=== PATIENT | male | born 1940 | race Caucasian/White ===

== ENCOUNTER → 2019-12-13 10:25 | Outpatient (BNVA) | payer MEDICARE, OTHER, SELFPAY | PROVIDERS: PCP Internal Medicine; Visit Provider Internal Medicine | DX: R94.39 Abnormal result of other cardiovascular function study (principal); R07.2 Precordial pain; I10 Essential (primary) hypertension; E11.9 Type 2 diabetes mellitus without complications; E78.5 Hyperlipidemia, unspecified; I73.9 Peripheral vascular disease, unspecified | CPT/HCPCS: 99215 ==

== ENCOUNTER 2019-12-21 13:41 | Outpatient (REF) | payer MEDICARE, OTHER, SELFPAY ==
[2019-12-21 14:34] LABS: MANUAL DIFF FLAG NO
[2019-12-21 14:35] LABS: Basophils Percent Auto 0.7 % (0-2); Eosinophils Absolute Auto 0.1 X10*3/uL (0.0-0.4); Eosinophils Percent Auto 0.9 % (0-4); Hematocrit 42.1 % (42-52); Hemoglobin 13.4 g/dl (14.0-18.0); Imm Gran Abs Auto 0.01 X10*3/uL (0.00-0.03); Imm Gran Pct Auto 0.2 % (0.0-0.4); Mean Corpuscular HGB Conc 31.8 g/dl (31.0-36.0); Mean Corpuscular Hemoglobin 29.5 pg (27.0-33.0); Mean Corpuscular Volume 92.7 fL (80-98); Mean Platelet Volume 11.8 fL (9.4-12.4); Monocytes Absolute Auto 0.4 X10*3/uL (0.1-1.2); Monocytes Percent Auto 6.6 % (2-11); Neutrophils Absolute Auto 3.3 X10*3/uL (2.0-8.3); Neutrophils Percent Auto 56.6 % (45-73); Platelet Count 230 X10*3/uL (160-400); Red Blood Count 4.54 X10*6/uL (4.60-5.80); Red Cell Distribution Width 13.9 % (11.0-16.0); White Blood Count 5.7 X10*3/uL (4.8-10.8)
[2019-12-21 15:29] LABS: Anion Gap 14 (12-20); Blood Urea Nitrogen 16 mg/dL (9-16); Calcium 9.1 mg/dL (8.4-10.2); Carbon Dioxide 29 mmol/L (22-29); Chloride 104 mmol/L (96-108); Estimated Glomerular Filt Rate > 60; Glucose Random 88 mg/dL (60-115); Potassium 4.1 mmol/l (3.3-5.1); Sodium 143 mmol/L (135-145)
== END 2019-12-21 13:42 | disposition home or self-care (01) ==
LOC: HO.LAB 13:41
PROVIDERS: PCP Internal Medicine; Visit Provider Internal Medicine
DX: R94.39 Abnormal result of other cardiovascular function study (principal)
CPT/HCPCS: 36415; 80048; 85025

== ENCOUNTER 2019-12-24 14:20 | Outpatient (REF) | payer MEDICARE, MEDICAID, SELFPAY ==
[2019-12-24 15:36] LABS: MANUAL DIFF FLAG NO
[2019-12-24 15:39] LABS: Basophils Percent Auto 0.2 % (0-2); Eosinophils Percent Auto 0.1 % (0-4); Hematocrit 40.5 % (42-52); Hemoglobin 12.6 g/dl (14.0-18.0); Imm Gran Abs Auto 0.13 X10*3/uL (0.00-0.03); Imm Gran Pct Auto 0.7 % (0.0-0.4); Lymphocytes Absolute Auto 1.9 X10*3/uL (1.2-4.9); Lymphocytes Percent Auto 10.6 % (20-40); Mean Corpuscular HGB Conc 31.1 g/dl (31.0-36.0); Mean Corpuscular Hemoglobin 29.1 pg (27.0-33.0); Mean Corpuscular Volume 93.5 fL (80-98); Mean Platelet Volume 12.1 fL (9.4-12.4); Monocytes Absolute Auto 1.3 X10*3/uL (0.1-1.2); Monocytes Percent Auto 7.4 % (2-11); Neutrophils Absolute Auto 14.6 X10*3/uL (2.0-8.3); Platelet Count 222 X10*3/uL (160-400); Red Blood Count 4.33 X10*6/uL (4.60-5.80); Red Cell Distribution Width 14.1 % (11.0-16.0); White Blood Count 18.1 X10*3/uL (4.8-10.8)
[2019-12-24 15:43] LABS: Glucose Urine UA NEG (NEG); Leukocyte Esterase Urine 3+ (NEG); Nitrite Urine NEG (NEG); Urine Blood TRACE (NEG); Urine Ketones NEG (NEG); Urine Protein TRACE MG/DL (NEG-TRACE)
[2019-12-24 15:46] LABS: Appearance Urine CLOUDY; Color Urine YELLOW
[2019-12-24 15:56] LABS: Bacteria Urine 4+ /LPF; Hyaline Casts Urine 0-2 /LPF; Squamous Epithelial Cell Urine 3+ /LPF; WBC Urine 50-75 /HPF (0-4)
[2019-12-24 15:59] LABS: Anion Gap 13 (12-20); Blood Urea Nitrogen 20 mg/dL (9-16); Calcium 8.7 mg/dL (8.4-10.2); Carbon Dioxide 27 mmol/L (22-29); Chloride 105 mmol/L (96-108); Estimated Glomerular Filt Rate > 60; Glucose Random 83 mg/dL (60-115); Potassium 3.5 mmol/l (3.3-5.1); Sodium 141 mmol/L (135-145)
== END 2019-12-24 14:21 | disposition home or self-care (01) ==
LOC: HO.LAB 14:20
PROVIDERS: Visit Provider Psychiatry & Neurology Neurology
DX: N39.0 Urinary tract infection, site not specified (principal)
CPT/HCPCS: 36415; 80048; 81001; 85025; 87086; 87088; 87186

== ENCOUNTER 2020-01-08 08:05 | Outpatient (REF) | payer MEDICARE, MEDICAID, SELFPAY ==
--- NOTE | 2020-01-08 08:15 | MR_ITS ---
MRI BRAIN WITHOUT IV CONTRAST. CLINICAL INFORMATION: Transient alteration of awareness. COMPARISON: Head CT October 05, 2019. TECHNIQUE: Multiplanar multisequence MR imaging of the brain is obtained without IV contrast. FINDINGS: There is no hydrocephalus, extra-axial surface collection, or herniation. There is global cerebral volume loss and there is moderate chronic microangiopathy. The major flow voids at the skull base are preserved. There is no acute infarct on diffusion-weighted imaging. There is no intracranial hemorrhage on the gradient recalled echo acquisition. Small focus of chronic hemosiderin staining within the lateral right cerebellum. Mineralization throughout the basal ganglia bilaterally. The midline structures are normal. The cerebellar tonsils are normally positioned. The craniocervical junction is normal. Osseous marrow signal intensity is homogenous. The visualized soft tissues are unremarkable. MR/MR head/brain wo con IMPRESSION: - No acute intracranial findings - There is global cerebral volume loss and there is moderate chronic microangiopathy.
== END 2020-01-08 08:06 | disposition home or self-care (01) ==
LOC: HO.MRI 08:05
PROVIDERS: PCP Internal Medicine; Visit Provider Internal Medicine
DX: R40.4 Transient alteration of awareness (principal); R07.2 Precordial pain; E11.8 Type 2 diabetes mellitus with unspecified complications; E78.5 Hyperlipidemia, unspecified; D72.829 Elevated white blood cell count, unspecified; I73.9 Peripheral vascular disease, unspecified; Z87.891 Personal history of nicotine dependence; Z88.0 Allergy status to penicillin; Z79.4 Long term (current) use of insulin; Z79.899 Other long term (current) drug therapy; Z98.890 Other specified postprocedural states
CPT/HCPCS: 70551; 99214

== ENCOUNTER 2020-02-01 08:30 | Outpatient (REF) | payer MEDICARE, OTHER, SELFPAY ==
--- NOTE | 2020-02-01 08:55 | CT_ITS ---
EXAMINATION: CT CHEST WITHOUT CONTRAST CLINICAL INFORMATION: Pulmonary nodule, follow-up. COMPARISON: 07/15/[address] TECHNIQUE: Multidetector volumetric CT imaging of the chest was done. Axial MIP volume rendering provided. Sagittal and coronal reformatted images were obtained. This CT examination was performed using dose optimization techniques as appropriate, variously including the following: *Automated exposure control *Adjustment of mA and/or kV according to patient size (this includes techniques or standardized protocols for targeted exams where dose is matched to indication/reason for exam; i.e. extremities or head) *Use of iterative reconstruction technique DLP: 185 mGy-cm FINDINGS: LUNGS/PLEURA/AIRWAYS: A 0.6 cm nodule is seen in the left upper lobe laterally (image 343, series 4) without significant change. A 0.4 cm nodule seen inferiorly in the right middle lobe (image 457, series 4). A nodule anteriorly in the lingula measures 0.4 cm (image 450, series 4). A 0.6 cm nodule seen posteromedially in the left lower lobe (image 419, series 4). Mild upper lobe predominant paraseptal emphysema is seen extending to the apices. Mild biapical pleural thickening/scarring is again seen without significant change. There are no pleural effusions. The airways are patent. MEDIASTINUM: The visualized thyroid gland is unremarkable. The thoracic aorta measures up to 4.2 cm in AP dimension (image 32, series 3). Mild atherosclerosis is seen in the aortic arch. The pulmonary arteries are unremarkable. No coronary artery calcifications. No pericardial effusion. AXILLA: No lymphadenopathy. UPPER ABDOMEN: Partial visualization of a fluid attenuation cyst in the interpolar left kidney (image 69, series 3). OSSEOUS STRUCTURES: Mild to moderate degenerative changes are seen in the thoracic spine most pronounced in the mid thoracic spine. SOFT TISSUES: Mild asymmetric retroareolar tissue seen in the right breast. Small nodules seen laterally in the bilateral breasts are unchanged. CT/CT chest wo con IMPRESSION: 1. Pulmonary nodules measuring up to 0.6 cm as detailed above have not significantly changed favoring benignity. No significant new or suspicious pulmonary nodules seen. Following Fleischner Society guidelines, CT follow-up is recommended in 18-24 months. 2. Aneurysmal dilatation of the thoracic aorta measuring up to 4.2 cm without significant change.
== END 2020-02-01 08:31 | disposition home or self-care (01) ==
LOC: HO.CT 08:30
PROVIDERS: PCP Internal Medicine; Visit Provider Internal Medicine
DX: R91.1 Solitary pulmonary nodule (principal)
CPT/HCPCS: 71250

== ENCOUNTER 2020-02-12 12:27 | Outpatient (REF) | payer MEDICARE, MEDICAID, SELFPAY | END 2020-02-12 12:28 | disposition home or self-care (01) | LOC: HO.LAB 12:27 | PROVIDERS: Visit Provider Internal Medicine | DX: Z20.828 Contact with and (suspected) exposure to other viral communicable diseases (principal) | CPT/HCPCS: U0003 ==

== ENCOUNTER 2020-02-19 09:53 | Outpatient (REF) | payer MEDICARE, OTHER, SELFPAY ==
[2020-02-19 12:03] LABS: MANUAL DIFF FLAG NO
[2020-02-19 12:10] LABS: Basophils Percent Auto 0.6 % (0-2); Eosinophils Percent Auto 0.6 % (0-4); Hematocrit 39.2 % (42-52); Hemoglobin 12.7 g/dl (14.0-18.0); Imm Gran Abs Auto 0.01 X10*3/uL (0.00-0.03); Imm Gran Pct Auto 0.1 % (0.0-0.4); Lymphocytes Absolute Auto 2.1 X10*3/uL (1.2-4.9); Lymphocytes Percent Auto 30.4 % (20-40); Mean Corpuscular HGB Conc 32.4 g/dl (31.0-36.0); Mean Corpuscular Hemoglobin 30.1 pg (27.0-33.0); Mean Corpuscular Volume 92.9 fL (80-98); Mean Platelet Volume 12.5 fL (9.4-12.4); Monocytes Absolute Auto 0.5 X10*3/uL (0.1-1.2); Monocytes Percent Auto 7.2 % (2-11); Neutrophils Absolute Auto 4.3 X10*3/uL (2.0-8.3); Neutrophils Percent Auto 61.1 % (45-73); Platelet Count 252 X10*3/uL (160-400); Red Blood Count 4.22 X10*6/uL (4.60-5.80); Red Cell Distribution Width 14.4 % (11.0-16.0); White Blood Count 7.1 X10*3/uL (4.8-10.8)
[2020-02-19 12:38] LABS: Alanine Aminotransferase 19 U/L (0-40); Anion Gap 12 (12-20); Aspartate Amino Transferase 18 U/L (5-37); Blood Urea Nitrogen 20 mg/dL (9-16); Calcium 8.9 mg/dL (8.4-10.2); Carbon Dioxide 28 mmol/L (22-29); Chloride 107 mmol/L (96-108); Cholesterol 126 mg/dL; Estimated Glomerular Filt Rate > 60; Glucose Fasting 111 mg/dL (60-99); HDL Cholesterol 44 mg/dL; LDL Cholesterol Calculated 61 mg/dl; Potassium 4.1 mmol/l (3.3-5.1); Sodium 143 mmol/L (135-145); Triglycerides 109 mg/dL
== END 2020-02-19 09:54 | disposition home or self-care (01) ==
LOC: HO.LAB 09:53
PROVIDERS: PCP Internal Medicine; Referring Provider Internal Medicine; Visit Provider Nurse Practitioner Family
DX: E78.5 Hyperlipidemia, unspecified (principal); I10 Essential (primary) hypertension; R07.2 Precordial pain; E11.8 Type 2 diabetes mellitus with unspecified complications; Z98.890 Other specified postprocedural states
CPT/HCPCS: 36415; 80048; 80061; 84450; 84460; 85025; 99212

== ENCOUNTER 2020-05-14 12:34 | Outpatient (REF) | payer MEDICARE, MEDICAID, SELFPAY ==
--- NOTE | ~2020-05-14 | US_ITS ---
EXAMINATION: NONINVASIVE ASSESSMENT OF THE ARTERIES OF BOTH LOWER EXTREMITIES WITH PVR EXAM AND BILATERAL LOWER EXTREMITY DUPLEX CLINICAL INFORMATION: Peripheral vascular disease TECHNIQUE: Ankle pulse volume recordings, ankle pressure measurements and ankle brachial indices were obtained of the lower extremity arterial system bilaterally in addition to duplex Doppler techniques with wave form analysis and measurement of velocities in the common femoral, profunda femoral, superficial femoral, popliteal and tibial arteries. The study was performed only at rest. COMPARISON: None FINDINGS: a) AT REST: RIGHT LE. The right ankle-brachial index is: 0.85 2. Right ankle pressure: Decreased. 3. Right ankle PVR waveform: normal. 4. Right direct duplex Doppler findings: There is evidence of atherosclerotic disease. There is diffuse luminal narrowing of the SFA and posterior tibial artery. There is a focal severe stenosis of the mid SFA. Common femoral artery: 255 cm/s, Diastolic flow reversal: No. Biphasic * Superficial femoral artery (91, 622 and 61 cm/s, Diastolic flow reversal: No. Biphasic. * Popliteal artery: 82 cm/s, Diastolic flow reversal: No. Biphasic. * Posterior tibial artery: 42 cm/s, Diastolic flow reversal: No. Monophasic. There is a portion with reversed flow. LEFT LE. The left ankle-brachial index is: 0.44 2. Left ankle pressure: Decreased 3. Left ankle PVR waveform: Dampened 4. Left direct duplex Doppler findings: There is atherosclerotic disease. There is a stent in the left superficial femoral artery. The left superficial femoral artery is occluded. There is significant luminal narrowing of the popliteal artery and posterior tibial arteries.. * Common femoral artery: 170 cm/s, Diastolic flow reversal: No. Biphasic. * Superficial femoral artery the stented left SFA is occluded. * Popliteal artery: 314 cm/s, Diastolic flow reversal: No. Monophasic. * Posterior tibial artery: 21 cm/s, Diastolic flow reversal: No. Monophasic. ABHISHEK Reference: * >0.97-1.25 = normal - no significant arterial disease * 0.75-0.96 = mild peripheral arterial disease * 0.5-0.74 = moderate peripheral arterial disease * <0.50 = severe peripheral arterial disease US/US arterial duplex LE BI IMPRESSION: Right: The right ABHISHEK is 0.85 suggestive of mild obstructive atherosclerotic disease. There is increased peak systolic velocity and biphasic flow in the common femoral artery. There is a severe stenosis of the mid SFA. There is a diseased posterior tibial artery with monophasic flow. Left: The left ABHISHEK is 0.44 suggestive of moderate obstructive atherosclerotic disease. There are increased velocities in the left common femoral artery and biphasic flow. There is an occluded stent in the left superficial femoral artery. There is a monophasic flow seen in the left posterior tibial and popliteal arteries. CLINICAL INFORMATION: COMPARISON: None TECHNIQUE: FINDINGS: IMPRESSION:
== END 2020-05-14 12:35 | disposition home or self-care (01) ==
LOC: HO.US 12:34
PROVIDERS: PCP Internal Medicine; Visit Provider Surgery Vascular Surgery
DX: I73.9 Peripheral vascular disease, unspecified (principal)
CPT/HCPCS: 93923; 93925

== ENCOUNTER → 2020-05-29 13:46 | Outpatient (BNVA) | payer MEDICARE, BC, SELFPAY | PROVIDERS: PCP Internal Medicine; Visit Provider Surgery Vascular Surgery | DX: I73.9 Peripheral vascular disease, unspecified (principal) | CPT/HCPCS: 99212 ==

== ENCOUNTER → 2021-03-17 10:34 | Outpatient (BNVA) | payer OTHER, SELFPAY | PROVIDERS: PCP Internal Medicine; Referring Provider Internal Medicine; Visit Provider Internal Medicine | DX: Z01.810 Encounter for preprocedural cardiovascular examination (principal); I25.10 Atherosclerotic heart disease of native coronary artery without angina pectoris; I73.9 Peripheral vascular disease, unspecified; I10 Essential (primary) hypertension; E11.8 Type 2 diabetes mellitus with unspecified complications | CPT/HCPCS: 93005 ==

== ENCOUNTER 2024-12-05 07:56 | Emergency (ER) | payer OTHER, SELFPAY ==
--- OUTSIDE RECORDS SUMMARY | 2024-03-08 07:00 | XMS_ITS ---
Author Organization [facility] Address [address] [facility] [place] [address] Care Team Providers Care Ent Nurse Name Role Phone Purvi STEVENS, Ulisses Primary Care Provider U Hipolito Liu Unavailable [phone] Reeves Encounters Encounter Location Date Provider Diagnosis [address] [address] 03/08/2024 Hipolito Mathis Plan Of Treatment No Information Progress Notes * Cathi GILisDOB:1940 (84 yo M)Acc No.[id number]:03/08/2024 Progress Note Patient: Rey CAMARA Provider: Berenice Mathis DPM :1940 A ge:83 Y S ex:Male Date:03/08/2024 Address:[address] [id number] Pcp:Ulisses Loja MD Subjective: * Chief Complaints: [...] Pending * Provider: Berenice Mathis DPM Date: 1 05/09/2023 Generated for Niki massiel/Dinesh/eTransmitting on: 0 12/05/2024 11:56 AM EDT
--- OUTSIDE RECORDS SUMMARY | 2024-10-18 07:15 | XMS_ITS ---
Author Organization [facility] Address [address] [facility] [place] [address] Care Team Providers Care Dry Kiln Loader Name Role Phone Purvi STEVENS, [facility] Primary Care Provider U Hipolito Liu Unavailable [phone] Medications Medication SIG (Take, Route, Frequency, Duration) [...] Active Encounters Encounter Location Date Provider [facility] [address] [place] [phone] 10/18/2024 Hipolito Mathis Plan Of Treatment No Information Progress Notes * Cathi GILisDOB:1940 (84 yo M)Acc No.[id number]:10/18/2024 Progress Note Patient: N JANETTE, Rey Provider: Berenice Mathis DPM :1940 A ge:84 Y S ex:Male Date:10/18/2024 Address:[address], [id number] Pcp:Ulisses Loja MD Subjective: * Chief Complaints: [...] Pending * Provider: Berenice Mathis DPM Date: 10/18/2024 Generated for Laurence rankin/Dinesh/Manolo on: 0 12/05/2024 11:56 AM EDT
--- NOTE | ~2024-12-05 | XR_ITS ---
EXAMINATION: XR HIP, LEFT CLINICAL INFORMATION: pain, fall COMPARISON: Radiographs on January 09, 2015. TECHNIQUE: AP view of the pelvis and 2 views of the left hip FINDINGS: Normal alignment. Joint spaces of bilateral hip joints are preserved. Mild sclerotic changes of bilateral femoral heads, more prominent than 2015. Small marginal osteophytes in bilateral hip joints. No acute displaced fracture. Sacroiliac joints are intact. Similar minimal degenerative changes at the symphysis pubis. Left femoral vascular stent remains in place. XR/XR hip LT w PEL1V IMPRESSION: 1. No acute displaced fracture or dislocation. 2. Interval progression of the sclerotic changes in bilateral femoral heads may reflect progression of the degenerative changes. If clinical concern for avascular necrosis, consider nonemergent MR study. Electronically signed by: Emilie Fairchild MD 12/05/2024 09:19 AM EDT
--- NOTE | ~2024-12-05 | CT_ITS ---
EXAMINATION: CT CERVICAL SPINE WITHOUT CONTRAST CLINICAL INFORMATION: Fall, pain COMPARISON: 07/15/2019 TECHNIQUE: Spiral CT imaging of the cervical spine performed in axial plane without contrast. Multiplanar reformatted images were constructed from the axial data set. This CT examination was performed using dose optimization techniques as appropriate, variously including the following: *Automated exposure control *Adjustment of mA and/or kV according to patient size (this includes techniques or standardized protocols for targeted exams where dose is matched to indication/reason for exam; i.e. extremities or head) *Use of iterative reconstruction technique FINDINGS: CORONAL ALIGNMENT: -Normal. SAGITTAL ALIGNMENT: -Normal. -No traumatic subluxation. C1-C2 AND CRANIOCERVICAL JUNCTION: -Intact and normally aligned. Moderate degenerative arthritis in the anterior atlantoaxial joint. VERTEBRAL BODIES AND FACETS: -No fracture, compression deformity, or suspicious bone lesion. -Normal facet alignment bilaterally. Left greater than right hypertrophic degenerative facet change, most significant on the left spanning C2-3 and C3-4. -Sclerosis of the endplates at C4-5. DISCS: -Moderate disc degeneration present C3-4, and C5-6. Severe degeneration C4-5. There are ventral vertebral and disc osteophytes spanning C3-C6. CENTRAL CANAL: -No evidence of high-grade central canal narrowing or large disc herniation allowing for modality limitations. -Moderate central canal stenosis is present C3-4, and C5-6 due to disc osteophytic ridge complexes and posterior lateral hypertrophy. PREVERTEBRAL AND PARAVERTEBRAL SOFT TISSUES: -There is no prevertebral or paravertebral soft tissue swelling or edema. There is no abnormal fluid collection. -Minimal carotid bulb calcification left greater than right. No mass or abnormal lymphadenopathy within the neck. Normal-appearing thyroid. LUNG APICES: -Mild apical scarring bilaterally. Otherwise clear. CT/CT cervical spine wo IV con IMPRESSION: 1. No CT evidence of acute cervical spine fracture or injury. 2. Moderate degenerative spondylosis. Electronically signed by: Rigoberto Marquez MD 12/05/2024 09:17 AM EDT
--- NOTE | ~2024-12-05 | CT_ITS ---
EXAMINATION: CT HEAD WITHOUT CONTRAST CLINICAL INFORMATION: Fall, pain COMPARISON: Head CT on October 05, 2019. Brain MRI on January 08, 2020. TECHNIQUE: Contiguous axial imaging was performed from the skull base to vertex without intravenous administration of contrast. This CT examination was performed using dose optimization techniques as appropriate, variously including the following: *Automated exposure control *Adjustment of mA and/or kV according to patient size (this includes techniques or standardized protocols for targeted exams where dose is matched to indication/reason for exam; i.e. extremities or head) *Use of iterative reconstruction technique FINDINGS: Brain parenchyma: No shift of midline structures. No evidence of parenchymal hemorrhage, acute territorial infarct or mass effect. Moderate amount of confluent hypodensity in the white matter of bilateral cerebral hemispheres likely represents small vessel chronic ischemic changes. Ventricles/extra-axial spaces: Generalized prominence of the ventricles and brain sulci, representing some degree of brain volume loss, likely age appropriate. No hydrocephalus. No extra-axial fluid collection. Calvarium/extracranial structures: No depressed skull fracture. No significant soft tissue hematoma. Paranasal sinuses and mastoid air cells are clear. Orbital globes showing evidence of previous lens replacement. CT/CT head/brain wo IV con IMPRESSION: No acute intracranial pathology. Electronically signed by: Emilie Fairchild MD 12/05/2024 09:11 AM EDT
--- NOTE | 2024-12-05 08:09 | ED_ITS ---
HPI - General Adult General Chief complaint: Fall Stated complaint: FALL/T W/NO NEW C/O,FALL 3DA W/L HIP PAIN PER EMS Time Seen by Provider: 12/05/24 08:06 Source: patient, family (patient's daughter) and EMS Mode of arrival: EMS Limitations: physical limitation (patient is demented at baseline) History of Present Illness ED Provider: Katelin Nunez PA-C HPI narrative: Patient is an 84 year old assigned male at with a history of atrial fib on eliquis, HTN, PAD, DM, GERD, depression, and dementia presenting to the emergency department today after a fall. Patient states that he tripped and fell at home and his left hip hurts. Patient denies any other complaints at this time. Patient states that he is not sure what medication he takes or why. Patient's daughter states that the patient has been on Tetracycline PO for a UTI on an outpatient basis for a few days but has continued to get weaker. Patient's daughter states that the patient lives with her and has next to 24 hour care. Related Data Home Medications ?Medication ?Instructions ?Recorded ?Confirmed tamsulosin 0.4 mg capsule 0.8 mg PO DAILY 12/10/19 acetaminophen 325 mg tablet 650 mg PO BID PRN Fever Or Pain 12/05/24 12/05/24 apixaban 5 mg tablet (Eliquis) 5 mg PO BID 12/05/24 atorvastatin 80 mg tablet 80 mg PO BEDTIME 12/05/24 banana 1 ea PO BID PRN Diarrhea 12/05/24 flakes-transgalactooligosaccharide oral powder packet (Banatrol Plus oral powder packet) cholecalciferol (vitamin D3) 50 50 mcg PO DAILY 12/05/24 mcg (2,000 unit) capsule (Vitamin D3) cyanocobalamin (vitamin B-12) 500 500 mcg PO DAILY 12/05/24 mcg tablet (Vitamin B-12) empagliflozin 10 mg tablet 10 mg PO DAILY 12/05/24 (Jardiance) gabapentin 100 mg capsule 100 mg PO BID 12/05/2412/05 lisinopril 5 mg tablet 5 mg PO BEDTIME 12/05/24 trazodone 50 mg tablet 50 mg PO BEDTIME 12/05/24 Previous Rx's ?Medication ?Instructions ?Recorded blood sugar diagnostic (FreeStyle #50 ea 01/03/20 Test strips) blood-glucose meter (FreeStyle #1 ea 01/03/20 Lite Meter kit) lancets 28 gauge (FreeStyle #100 ea 01/03/20 Lancets) cefuroxime axetil 250 mg tablet 500 mg (2 x 250 mg) PO BID 7 days 12/05/24 #28 tabs fluconazole 150 mg tablet 150 mg PO ONCE 1 dose #1 tab 12/05/24 Allergies Allergy/AdvReac Type Severity Reaction Status Date / Time penicillin V Allergy Unknown Rash & Verified 12/05/24 08:16 Dizziness, rash and dizziness Review of Systems 2 Constitutional: Constitutional: Reports as per HPI Eyes: Eyes: Reports as per HPI ENT: Reports as per HPI Cardiovascular: Cardiovascular: Reports as per HPI Respiratory: Respiratory: Reports as per HPI Gastrointestinal: Gastrointestinal: Reports as per HPI Genitourinary: Genitourinary: Reports as per HPI Musculoskeletal: Musculoskeletal: Reports as per HPI Integumentary/Breasts: Skin/Breast: Reports as per HPI Neurologic: Reports as per HPI Psychiatric: Psychiatric: Reports as per HPI Endocrine: Endocrine: Reports as per HPI Hematologic/Lymphatic: Hematologic/Lymphatic: Reports as per HPI Allergic/Immunologic: Allergic/Immunologic: Reports as per HPI [facility] Past Medical History Attestation statement: The following information was validated with the patient. (all information validated with the patient's daughter) Source: old records reviewed, obtained from family (patient's daughter provided additional history and confirmed the history provided by the patient. ) and nursing notes reviewed Medical History Dyslipidemia Thoracic aneurysm without mention of rupture Confusion Leukocytosis Infarction of right basal ganglia Peripheral vascular disease Hyperlipidemia Essential hypertension Type 2 diabetes mellitus with unspecified complications Hx of cataract Surgical History S/P cardiac cath (~12/2019) History of cataract surgery Hx of appendectomy Hx of cholecystectomy Hx of pyloroplasty Hx of vagotomy Family History Family History Father Throat cancer Mother Medical history unknown Brother No problems noted. Social History Social History Alcohol intake: never Patient Tobacco Use Status: Never used Tobacco Advance Directives: No Advance Directives Information Provided: Yes Physical Exam ED Vital Signs: Vital Signs - 24 hr 12/05/24 08:11 12/05/24 10:00 12/05/24 11:28 Temperature 97.5 F 98.1 F 97.8 F Pulse Rate 18 L 70 68 Respiratory Rate 12 19 12 Blood Pressure 186/70 H 160/61 H 133/64 Pulse Oximetry 99 100 100 Oxygen Delivery Method Room Air Room Air Room Air BMI result Body Mass Index 21.9 Const General: cooperative, no acute distress, alert and awake Nutritional Appearance: well nourished Orientation/consciousness: oriented to person and oriented to place HENMT Head: Yes normal to inspection and Yes atraumatic Ears: hearing grossly normal bilaterally and external ears normal General nose exam: Normal external nose present, no nasal discharge noted and no epistaxis Face and sinus: Yes normal facial exam, No abrasion and No laceration Mouth: Normal oral and palatal mucosa present, no drooling and no muffled voice Eyes General: appearance normal, both eyes and all related structures Periorbital: periorbital findings normal Eyelids: Yes eyelids normal Conjunctivae: conjunctivae normal Pupils: Equal, round and reactive pupils present EOM: EOMs intact bilaterally Neck Neck: Yes normal visual inspection and Yes full ROM Resp Effort & Inspection: normal respiratory effort and able to speak in complete sentences Neuro General: oriented to person, oriented to place, moves all extremities and CN's II-XI intact bilaterally Cranial nerves: Yes Equal, round and reactive pupils present Extrem General: Yes normal to inspection, Yes full ROM and Yes capillary refill normal Psych Appearance: grossly normal Mental Status: mental status grossly normal Affect: normal affect Attitude: cooperative Thought process: Normal thought process present Thought content: Normal thought content present Insight: Good insight present (Psych) Medications Administered Generic Name Dose Route Start Last Admin Trade Name Freq PRN Reason Stop Dose Admin Cefuroxime Axetil 500 mg 12/05/24 10:15 12/05/24 10:27 Cefuroxime Axetil 500 Mg Tablet PO 12/12/24 10:14 500 mg BID MALDONADO Administration Doxycycline Monohydrate 100 mg 12/05/24 10:30 12/05/24 12:28 Doxycycline Monohydrate 100 Mg Capsule PO 12/12/24 10:29 100 mg BID MALDONADO Administration Discontinued Medications Generic Name Dose Route Start Last Admin Trade Name Artur PRN Reason Stop Dose Admin Sodium Chloride 1,000 mls @ 999 mls/hr 12/05/24 10:15 12/05/24 12:27 Ns IV 12/05/24 11:15 Infused .Q1H1M MALDONADO Infusion Medical Decision Making Medical Decision Making [facility] Narrative: Patient is an 84 year old assigned male at with a history of atrial fib on eliquis, HTN, PAD, DM, GERD, depression, and dementia presenting to the emergency department today after a fall. Patient's physical exam was as noted in the physical exam portion of this note and consistent with a demented individual. Patient's blood work showed a WBC count of 12.5, an alk phos of 216, and a total bilirubin of 1.2. Patient's urine showed evidence of infection - consistent with the reported outpatient UTI. Patient's EKG was unremarkable. Patient's CT head and c-spine showed no acute process. Patient's left hip and pelvis x-ray showed interval progression of the sclerotic changes in bilateral femoral heads which the radiologist states may reflect degenerative changes vs. avascular necrosis for which they recommend a non- emergent MRI. I spoke with the orthopedic team who agreed with outpatient follow up for this possible avascular necrosis x-ray finding. My suspicion for this is low given his physical examination. I explained my physical exam findings as well as all test results to the patient and the patient's daughter. I answered all questions asked by the patient and the patient's daughter. Patient was started on Cefuroxime and Doxycyline for his UTI. Patient's urine showed evidence of yeast as well - patient started on Fluconazole. Given patient's continued weakness, frequent falls at home, and current UTI - physical therapy and case management consult orders placed. Patient is not septic (@1023) and does not require hospital admission at this time. Patient placed in observation at 1023 pending physical therapy evaluation and case management input. 1422 Katelin Nunez PA-C ---> Patient evaluated by physical therapy who recommended outpatient services. Home physical therapy should be arranged by [facility]. Patient and the patient's daughter verbalized agreement with this treatment plan and discharge. Differential Diagnosis Differential Diagnoses: The differential diagnosis associated with the presentation includes UTI Weakness Physical deconditioning Frequent falls Admission/Observation Consideration of admission/observation: Escalation of care including admission/observation considered Patient would have been admitted to the hospital had his work up had any findings where hospital admission was appropriate and his clinical presentation warranted hospital admission. Consult Healthcare Provider Management of the patient was discussed with: Car Sweeper (I spoke with the orthopedic team as noted in the MDM Rationale portion of this note. ) Lab Data [facility] Lab Attestation statement: I reviewed the patient's lab results. My interpretation of these results are in the MDM Rationale portion of this note. 12/05/24 09:38 12/05/24 09:38 Labs: Lab Results 12/05/24 12/05/24 Range/Units 09:38 11:31 WBC 12.5 H (4.8-10.8) X10*3/uL RBC 4.35 L (4.60-5.80) X10*6/uL Hgb 12.9 L (14.0-18.0) g/dl Hct 39.9 L (42.0-52.0) % MCV 91.7 (80.0-98.0) fL MCH 29.7 (27.0-33.0) pg MCHC 32.3 (31.0-36.0) g/dl RDW 13.7 (11.0-16.0) % Plt Count 230 (160-400) X10*3/uL MPV 11.5 (9.4-12.4) fL Immature Gran % (Auto) 0.3 (0.0-0.4) % Neut % (Auto) 79.1 H (45-73) % Lymph % (Auto) 13.6 L (20-40) % [place] % (Auto) 6.2 (2-11) % Eos % (Auto) 0.2 (0-4) % Baso % (Auto) 0.6 (0-2) % Lymph # (Auto) 1.7 (1.2-4.9) X10*3/uL [place] # (Auto) 0.8 (0.1-1.2) X10*3/uL Eos # (Auto) 0.0 (0.0-0.4) X10*3/uL Baso # (Auto) 0.1 (0.0-0.2) X10*3/uL Abs Immat Gran (auto) 0.04 H (0.00-0.03) X10*3/uL Absolute Neuts (auto) 9.9 H (2.0-8.3) x10*3/uL Absolute Nucleated RBC 0.000 (0.0-0.012) X10*3/uL Nucleated RBC % (auto) 0.0 (0.0-0.2) /100WBC Hold Purple Top SEE NOTE PT 18.8 H (10.9-12.4) SEC INR 1.6 H (0.9-1.1) Sodium 142 (135-145) mmol/L Potassium 4.5 (3.3-5.1) mmol/L Chloride 110 H (96-108) mmol/L Carbon Dioxide 25 (22-29) mmol/L Anion Gap 12 (12-20) BUN 27 H (9-16) mg/dL Creatinine 1.07 (0.5-1.4) mg/dL Estim Creat Clear Calc 52.6 Estimated GFR > 60 Random Glucose 159 H (60-115) mg/dL Calcium 9.0 (8.4-10.2) mg/dL Magnesium 2.1 (1.6-2.6) mg/dL Total Bilirubin 1.2 H (0.0-1.0) mg/dL AST 18 (5-37) U/L ALT 18 (0-40) U/L Alkaline Phosphatase 216 H (39-117) U/L Troponin I High Sens 4.3 (<3.5-35.0) ng/L Total Protein 6.5 (6.5-8.0) g/dL Albumin 3.9 (3.5-5.0) g/dL Urine Color Yellow Urine Appearance Clear Urine pH 5.5 (5.0-9.0) Ur Specific [place] >= 1.030 H (1.005-1.025) Urine Protein Trace (Neg-Trace) mg/dL Urine Glucose (UA) >=1000 H (Negative) mg/dL Urine Ketones Negative (Negative) mg/dL Urine Blood Small (1+) H (Negative) Urine Nitrite Negative (Negative) Ur Leukocyte Esterase Moderate (2+) H (Negative) Urine RBC 0-2 (0-2) /HPF Urine WBC >50 H (0-5) /HPF Urine WBC Clumps Present Ur Squamous Epith Cells 0-2 (0-2) /HPF Urine Bacteria None Seen (None Seen) Hyaline Casts 0-2 (0-2) /LPF Urine Yeast Present Influenza Type A (PCR) NEGATIVE (Negative) Influenza Type B (PCR) NEGATIVE (Negative) RSV RNA Qual (PCR) NEGATIVE (Negative) SARS-CoV-2 RNA (RT-PCR) NEGATIVE (Negative) Independent Interpretation I performed an independent interpretation of an: EKG, Plain X-Ray and CT Scan Interpretation: My interpretation is in agreement with the radiologist's impression of these imaging studies. L Reason for Exam: fall, pain EXAMINATION: CT CERVICAL SPINE WITHOUT CONTRAST CLINICAL INFORMATION: Fall, pain COMPARISON: 07/15/2019 TECHNIQUE: Spiral CT imaging of the cervical spine performed in axial plane without contrast. Multiplanar reformatted images were constructed from the axial data set. This CT examination was performed using dose optimization techniques as appropriate, variously including the following: *Automated exposure control *Adjustment of mA and/or kV according to patient size (this includes techniques or standardized protocols for targeted exams where dose is matched to indication/reason for exam; i.e. extremities or head) *Use of iterative reconstruction technique FINDINGS: CORONAL ALIGNMENT: -Normal. SAGITTAL ALIGNMENT: -Normal. -No traumatic subluxation. C1-C2 AND CRANIOCERVICAL JUNCTION: -Intact and normally aligned. Moderate degenerative arthritis in the anterior atlantoaxial joint. VERTEBRAL BODIES AND FACETS: -No fracture, compression deformity, or suspicious bone lesion. -Normal facet alignment bilaterally. Left greater than right hypertrophic degenerative facet change, most significant on the left spanning C2-3 and C3-4. -Sclerosis of the endplates at C4-5. DISCS: -Moderate disc degeneration present C3-4, and C5-6. Severe degeneration C4-5. There are ventral vertebral and disc osteophytes spanning C3-C6. CENTRAL CANAL: -No evidence of high-grade central canal narrowing or large disc herniation allowing for modality limitations. -Moderate central canal stenosis is present C3-4, and C5-6 due to disc osteophytic ridge complexes and posterior lateral hypertrophy. PREVERTEBRAL AND PARAVERTEBRAL SOFT TISSUES: -There is no prevertebral or paravertebral soft tissue swelling or edema. There is no abnormal fluid collection. -Minimal carotid bulb calcification left greater than right. No mass or abnormal lymphadenopathy within the neck. Normal-appearing thyroid. LUNG APICES: -Mild apical scarring bilaterally. Otherwise clear. CT/CT cervical spine wo IV con IMPRESSION: 1. No CT evidence of acute cervical spine fracture or injury. 2. Moderate degenerative spondylosis. Electronically signed by: Rigoberto Marquez MD 12/05/2024 09:17 AM EDT RP Dictated By: Rigoberto Marquez MD Signed By: Electronically signed by Rigoberto Marquez MD 12/05/24 0917 Reason for Exam: fall, pain EXAMINATION: CT HEAD WITHOUT CONTRAST CLINICAL INFORMATION: Fall, pain COMPARISON: Head CT on October 05, 2019. Brain MRI on January 08, 2020. TECHNIQUE: Contiguous axial imaging was performed from the skull base to vertex without intravenous administration of contrast. This CT examination was performed using dose optimization techniques as appropriate, variously including the following: *Automated exposure control *Adjustment of mA and/or kV according to patient size (this includes techniques or standardized protocols for targeted exams where dose is matched to indication/reason for exam; i.e. extremities or head) *Use of iterative reconstruction technique FINDINGS: Brain parenchyma: No shift of midline structures. No evidence of parenchymal hemorrhage, acute territorial infarct or mass effect. Moderate amount of confluent hypodensity in the white matter of bilateral cerebral hemispheres likely represents small vessel chronic ischemic changes. Ventricles/extra-axial spaces: Generalized prominence of the ventricles and brain sulci, representing some degree of brain volume loss, likely age appropriate. No hydrocephalus. No extra-axial fluid collection. Calvarium/extracranial structures: No depressed skull fracture. No significant soft tissue hematoma. Paranasal sinuses and mastoid air cells are clear. Orbital globes showing evidence of previous lens replacement. CT/CT head/brain wo IV con IMPRESSION: No acute intracranial pathology. Electronically signed by: Emilie Fairchild MD 12/05/2024 09:11 AM EDT Dictated By: Emilie Fairchild MD Signed By: Electronically signed by Emilie Fairchild MD 12/05/24 0911 L Reason for Exam: pain, fall EXAMINATION: XR HIP, LEFT CLINICAL INFORMATION: pain, fall COMPARISON: Radiographs on January 09, 2015. TECHNIQUE: AP view of the pelvis and 2 views of the left hip FINDINGS: Normal alignment. Joint spaces of bilateral hip joints are preserved. Mild sclerotic changes of bilateral femoral heads, more prominent than 2015. Small marginal osteophytes in bilateral hip joints. No acute displaced fracture. Sacroiliac joints are intact. Similar minimal degenerative changes at the symphysis pubis. Left femoral vascular stent remains in place. XR/XR hip LT w PEL1V IMPRESSION: 1. No acute displaced fracture or dislocation. 2. Interval progression of the sclerotic changes in bilateral femoral heads may reflect progression of the degenerative changes. If clinical concern for avascular necrosis, consider nonemergent MR study. Electronically signed by: Emilie Fairchild MD 12/05/2024 09:19 AM EDT Dictated By: Emilie Fairchild MD Signed By: Electronically signed by Emilie Fairchild MD 12/05/24 0919 I independently interpreted this EKG and am in agreement with the below findings: Vent. Rate: 90 BPM Atrial Rate: 90 BPM P-R Int: 188 ms QRS Dur: 80 ms QT Int: 388 ms P-R-T Axes: 41 35 -5 degrees QTcB Int: 474 ms Sinus rhythm with Premature supraventricular complexes Nonspecific T wave abnormality When compared with ECG of 03-Oct-2019 09:40, Premature supraventricular complexes are now Present Criteria for Inferior infarct are no longer Present Nonspecific T wave abnormality, worse in Lateral leads DD/ 0907 Radiology Impression Discussion of test interpretation with radiology: I have reviewed the radiologist's reading. Independent Historian Clinical information obtained from an independent historian. History obtained from or confirmed by: EMS (EMS provided additional history and confirmed the history provided by the patient and patient's daughter) and Other (Patient's daughter provided additional history and confirmed the history provided by EMS and the patient. ) Prescription Management I considered prescription management with: Antibiotic (patient prescribed antibiotic) and Other (patient prescribed an anti fungal) Critical Care Time Critical Care Time Critical Care Time: Yes Total Critical Care Time: 36 Attestation: I spent 36 minutes of Critical Care Time with this patient. This does not include time spent on separately reported billable procedures. Discharge Plan Discharge Clinical Impression: Weakness, Acute UTI, Fall, Yeast detected Patient Disposition: Home, Self-Care Instructions: Urinary Tract Infection in Men (DC), Fall Prevention for Older Adults (ED), Weakness (ED) Additional Instructions: Your urine continues to be infected. Continue taking the antibiotc you were previously prescribed, as well as the one I have prescribed. Your x-ray of the left hip showed possible evidence of avascular necrosis - my suspicion for this is low however, you should follow up with the orthopedic team about this on an outpatient basis. Your urine also showed evidence of yeast - you were given your first dose of the anti-fungal medication today and should take your next / final dose on 12/08/2024. IF you are prescribed home medications and/or you are taking over the counter medications at home - it is very important you continue to do so as prescribed / directed unless told otherwise. Follow up with your primary care provider. Return to the emergency department immediately if your symptoms worsen or if you develop any numbness, tingling, dizziness, shortness of breath, difficulty breathing, chest pain, blurry vision, loss of vision, nausea, vomiting, abdominal pain, fever, chills, back pain, or any other complaints. Please see the information below about our Patient Portal. If you are not yet enrolled in the [facility] Patient Portal, you will receive an enrollment email invitation following your visit to any [facility] care setting. You may also self-enroll in the Patient Portal by visiting our website: [email or web address] The following information is required to access the Patient Portal: - Your [facility] Medical Record Number - Your personal home email address (must match what is in your electronic medical record, Registration staff can assist with this) - Name - Date of Capabilities of the Patient Portal: - Message some providers - View upcoming appointments - Access your health summary, medical history, and visit history - View current conditions and allergies - View procedure and lab results - View your medications, including guidelines, side effects, and precautions - Complete pre-appointment questionnaires requested by your provider - Ready summary reports of your office visits and procedures To access the Patient Portal Mobile [employer], follow these directions: - Search [email or web address] in the [employer] Store or [employer] Store - Download the [employer] - Search for [facility] - Enter your login/password Prescriptions: New cefuroxime axetil 250 mg tablet 500 mg PO BID 7 Days Qty: 28 0RF fluconazole 150 mg tablet 150 mg PO ONCE Qty: 1 0RF Rx Instructions: Do NOT take until 12/08/2024. No Action trazodone 50 mg Tablet 50 mg PO BEDTIME cyanocobalamin (vitamin B-12) [Vitamin B-12] 500 mcg Tablet 500 mcg PO DAILY cholecalciferol (vitamin D3) [Vitamin D3] 50 mcg (2,000 unit) Capsule 50 mcg PO DAILY gabapentin 100 mg Capsule 100 mg PO BID Eliquis 5 mg Tablet 5 mg PO BID Jardiance 10 mg Tablet 10 mg PO DAILY acetaminophen 325 mg Tablet 650 mg PO BID PRN (Reason: Fever Or Pain) lisinopril 5 mg Tablet 5 mg PO BEDTIME Protocol: Hold for SBP< HOLD for SBP < : 110 Banatrol Plus Powder In Packet 1 ea PO BID PRN (Reason: Diarrhea) atorvastatin 80 mg tablet 80 mg PO BEDTIME (DME) FreeStyle Test Strip See Rx Instructions .ROUTE .MEDSUPPLY Qty: 50 11RF Rx Instructions: As directed (DME) blood-glucose meter [FreeStyle Lite Meter] Kit See Rx Instructions .ROUTE .MEDSUPPLY Qty: 1 0RF Rx Instructions: As directed (DME) lancets [FreeStyle Lancets] 28 gauge misc See Rx Instructions .ROUTE .MEDSUPPLY Qty: 100 11RF Rx Instructions: As directed tamsulosin 0.4 mg capsule 0.8 mg PO DAILY Referrals: [facility] [Outside] Referral Note: Program will arrange home therapy. Shellie Moser MD [Primary Care Provider, Internal Medicine] [facility] [Provider Group] Referral Note: Call to establish and follow up with the orthopedic team as directed. Print Language: Georgian
--- NOTE | 2024-12-05 08:10 | MHC.EDTECH ---
Patient came in the ED very wet of urine, and he was wearing a soiled dipper that appeared to have been on for a couple days. Patient was cleaned up by myself and JASON Martel. he is resting comfortably in his bed with call scott in his reach.
[2024-12-05 08:11] VITALS: BP 156/82; BP 186/70; PULSE 18; PULSE 65; RESP 12; TEMP 36.4; O2SAT 99; BMI 21.9
--- NOTE | 2024-12-05 08:22 | ECG_ITS ---
Test Reason : FALL Blood Pressure : */* mmHG Vent. Rate : 90 BPM Atrial Rate : 90 BPM P-R Int : 188 ms QRS Dur : 80 ms QT Int : 388 ms P-R-T Axes : 41 35 -5 degrees QTcB Int : 474 ms Sinus rhythm with Premature supraventricular complexes Nonspecific T wave abnormality Abnormal ECG When compared with ECG of 03-Oct-2019 09:40, Premature supraventricular complexes are now Present Criteria for Inferior infarct are no longer Present Nonspecific T wave abnormality, worse in Lateral leads Referred By: Katelin Nunez Electronically Signed By: Perico Mccartney
[2024-12-05 09:43] LABS: MANUAL DIFF FLAG NO
[2024-12-05 09:46] LABS: Hematocrit 39.9 % (42.0-52.0); Hemoglobin 12.9 g/dl (14.0-18.0); Imm Gran Abs Auto 0.04 X10*3/uL (0.00-0.03); Imm Gran Pct Auto 0.3 % (0.0-0.4); Lymphocytes Absolute Auto 1.7 X10*3/uL (1.2-4.9); Mean Corpuscular HGB Conc 32.3 g/dl (31.0-36.0); Mean Corpuscular Hemoglobin 29.7 pg (27.0-33.0); Mean Corpuscular Volume 91.7 fL (80.0-98.0); NRBC Abs Auto 0.000 X10*3/uL (0.0-0.012); NRBC Pct Auto 0.0 /100WBC (0.0-0.2); Platelet Count 230 X10*3/uL (160-400); Red Blood Count 4.35 X10*6/uL (4.60-5.80); White Blood Count 12.5 X10*3/uL (4.8-10.8)
[2024-12-05 10:00] VITALS: BP 160/61; PULSE 70; RESP 19; TEMP 36.7; O2SAT 100
[2024-12-05 10:00] LABS: Alanine Aminotransferase 18 U/L (0-40); Albumin Level 3.9 g/dL (3.5-5.0); Alkaline Phosphatase 216 U/L (39-117); Anion Gap 12 (12-20); Aspartate Amino Transferase 18 U/L (5-37); Blood Urea Nitrogen 27 mg/dL (9-16); Calcium 9.0 mg/dL (8.4-10.2); Carbon Dioxide 25 mmol/L (22-29); Chloride 110 mmol/L (96-108); Creatinine Clr Calc Pharmacy 52.6; Estimated Glomerular Filt Rate > 60; Magnesium 2.1 mg/dL (1.6-2.6); Potassium 4.5 mmol/L (3.3-5.1); Sodium 142 mmol/L (135-145); Total Protein 6.5 g/dL (6.5-8.0)
[2024-12-05 10:08] LABS: Troponin-I High Sensitivity 4.3 ng/L (<3.5-35.0)
--- NOTE | 2024-12-05 10:22 | PC.NURSE ---
pt taking PO tetracycline 250mg 4x daily
[2024-12-05 10:29] LABS: INTERNATIONAL NORM RATIO 1.6 (0.9-1.1); Prothrombin Time 18.8 SEC (10.9-12.4)
[2024-12-05 11:28] VITALS: BP 133/64; PULSE 68; RESP 12; TEMP 36.6; O2SAT 100
[2024-12-05 11:41] LABS: Appearance Urine Clear; Glucose Urine UA >=1000 mg/dL (Negative); PH 5.5 (5.0-9.0); Specific Gravity - Urine >= 1.030 (1.005-1.025); UMIC TRIGGER UACC YES
--- OUTSIDE RECORDS SUMMARY | 2024-12-05 11:56 | XMS_ITS | Patient Health Record ---
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 Name Role Phone Purvi STEVENS, [facility] Primary Care Provider U biankaradha Hipolito Mathis Unavailable [phone] Allergies Allergen (clinical drug ingredient) Drug/Non Drug Allergy documented on EMR Reaction Allergy Type Onset Date Status Penicillin Unknown Drug Allergy Active Results Component Value Reference Range Notes HEMOGLOBIN A1C (GLYCOHEMOGLO BIN) Reviewed date:04/16/2024 03:12:38 PM Interpretation: Performing Lab: Notes/Report: HEMOGLOBIN A1C % (HH) 7.1 HEMOGLOBIN A1C (GLYCOHEMOGLO BIN) Reviewed date:07/16/2024 02:37:52 PM Interpretation: Performing Lab: Notes/Report: HEMOGLOBIN A1C % (HH) 6.5 Reason For Referral No Information Medications Medication SIG (Take, Route, Frequency, Duration) Notes Start Date End Date Status Extra Depth Orthopedic Shoes (1 Pair) with Customized Heat Molded Multidensity Innersoles (3 Pair) as directed Dx: NIDDM/Polyneuropathy (E11.42), Hammertoe Foot Deformity (M20.41,M20.42), Preulcerative Skin Lesion(s) (L85.1 Active amLODIPine Besylate 5 MG 1 tablet Orally Once a day; Duration: 30 day(s) Active zzzCompression Stockings 20-30mm Hg . . .; Duration: . Active oxyBUTYnin Not-Takin g glipiZIDE Active Haloperidol Active Atorvastatin Calcium 80 MG 1 tablet Orally Once a day; Duration: 30 day(s) Active Gabapentin 100 MG 1 capsule Orally Onc e a day; Duration: 30 day(s) Active Ammonium Lactate 12 % 1 application to affected area Externally to feet Twice a day; Duration: 30 days Active Lisinopril Active Omeprazole Active Social History Tobacco Use: Social History Observation Description Date Details (start date - stop date) Never Smoker NA - NA Alcohol Screen Question Answer Notes Did you have a drink contain ing alcohol in the past year? Yes How often did you have a dri nk containing alcohol in the past year? 4 or more times a week (4 points) Points 4 Interpretation Positive Tobacco use other than smoking: Question Answer Notes Are you an other tobacco user? No Tobacco Control (Standard) Question Answer Notes Tobacco use: Nonsmoker Additional Findings: Tobacco non-user Current no nsmoker Problems Problem Type SNOMED Code ICD Code Onset Dates Problem Status W/U Status Risk Notes Problem Acquired hammer toe of right foot (2386246883059472 ) Other hammer toe(s) (acquired), right foot (M20.41) Active confirmed Response to treatment, Improvemen t Problem Acquired hammer toe of left foot (6528145456779938 ) Other hammer toe(s) (acquired), left foot (M20.42) Active confirmed Response to treatment, Improvemen t Problem Polyneuropathy due to type 2 diabetes mellitus (664383182) Type 2 diabetes mellitus with diabetic polyneuropathy (E11.42) Active confirmed Vital Signs Height 5 ft 10 in in 07/16/2024 Weight 174 lbs 07/16/2024 BMI 24.96 kg/m2 07/16/2024 Procedures Procedure Date Ordered Date Performed Result Body Sit e 83650-UKVHYLB NAIL, 6 OR MORE 04/16/2024 N/A 82916-Ipxxmetm Plate 04/16/2024 N/A 17773-Uxttzlpc Plate Each Additional 04/16/2024 N/A 08197-GGCH SKIN LESIONS, OVER 4 04/16/2024 N/A 17869-RENSCVF NAIL, 6 OR MORE 07/16/2024 N/A 41797-Zlcezopt Plate 07/16/2024 N/A 72236-Bxnfdqxr Plate Each Additional 07/16/2024 N/A 96667-BLLY SKIN LESIONS, OVER 4 07/16/2024 N/A Encounters Encounter Location Date Provider Diagnosis [facility] [address] [address] 04/16/2024 Hipolito Guidoier Type 2 diabetes mellitus with diabetic polyneuropathy E11.42 ; Tinea unguium B35.1 and Ingrown nail L60.[address] [address] 07/16/2024 Hipolito Mathis Type 2 diabetes mellitus with diabetic polyneuropathy E11.42 ; Onychomycosis B35.1 ; Ingrown nail L60.0 ; Other hammer toe(s) (acquired), right foot M20.41 and Other hammer toe(s) (acquired), left foot M20.[address] [address] 10/18/2024 Hipolito Mathis Assessments Encounter Date Diagnosis (ICD Code) Assessment Notes Treatment Notes Treatment Clinical Notes Section Notes 04/16/2024 Type 2 diabetes mellitus with diabetic polyneuropathy (ICD-10 - E11.42) 04/16/2024 Tinea unguium (ICD-10 - B35.1) 07/16/2024 Type 2 diabetes mellitus with diabetic polyneuropathy (ICD-10 - E11.42) 07/16/2024 Onychomycosis (ICD-10 - B35.1) 07/16/2024 Ingrown nail (ICD-10 - L60.0) 04/16/2024 Ingrown nail (ICD-10 - L60.0) 07/16/2024 Other hammer toe(s) (acquired), right foot (ICD-10 - M20.41) Patient Educated with: DIABETIC FOOT CARE INSTRUCTIONS. pdf (DIABETIC FOOT CARE INSTRUCTIONS. pdf) 07/16/2024 Other hammer toe(s) (acquired), left foot (ICD-10 - M20.42) Plan Of Treatment Pending Test Test Name Order Date 97511-YOFMXMW NAIL, 6 OR MORE 09/10/2020 21911-TXQWTKX NAIL, 6 OR MORE 12/10/2020 74224-GNNIPRA NAIL, 6 OR MORE 03/19/2021 19219-SKOZHPH NAIL, 6 OR MORE 09/17/2021 86949-LLRBGAT NAIL, 6 OR MORE 12/17/2021 51739-KGAGDJN NAIL, 6 OR MORE 05/13/2022 09784-OVIVGPU NAIL, 6 OR MORE 08/12/2022 32257-UJZDBNI NAIL, 6 OR MORE 11/18/2022 26342-YDHBOUH NAIL, 6 OR MORE 02/24/2023 83681-OWJNFDQ NAIL, 6 OR MORE 06/02/2023 86292-XQXSFIA NAIL, 6 OR MORE 09/01/2023 65828-RJXWHDB NAIL, 6 OR MORE 12/01/2023 94520-IVQUSLY NAIL, 6 OR MORE 04/16/2024 95535-FCNHVFH NAIL, 6 OR MORE 07/16/2024 55864-DDKPPNB NAIL, 6 OR MORE 06/18/2021 25856-Yjkfwvho Plate 07/16/2024 18915-Ccjyvjbz Plate 04/16/2024 72124-Jqwljayb Plate 12/01/2023 03444-Thcbftbk Plate 09/01/2023 53668-Ixjvgscp Plate 06/02/2023 95761-Hqdcttnb Plate 02/24/2023 63377-Pgbhqewm Plate 11/18/2022 85059-Znbajqnx Plate 08/12/2022 37017-Tpwgkjog Plate 05/13/2022 35165-Bnlxcnbj Plate 12/17/2021 82203-Lmccgctg Plate 09/17/2021 93100-Mpkacrbx Plate 09/10/2020 97960-Spgarvmh Plate Each Additional 04095-Qonmczmw Plate Each Additional 09/2021 77222-Gzxfreiq Plate Each Additional 08/2021 04777-Rqazdssg Plate Each Additional 04/2022 15240-Mgvphvvb Plate Each Additional 03/2022 88867-Uyqmrhwt Plate Each Additional 09/2022 17927-Nscvsosc Plate Each Additional 67013-Cdxkpgxd Plate Each Additional 60007-Bgessxuv Plate Each Additional 48082-Wtydqivs Plate Each Additional 43843-Nooqbjsn Plate Each Additional 05/2024 45915-Zemgwgxj Plate Each Additional 07/2024 02331 I&D ABSCESS- SIMPLE,SINGLE 023 59254-CXKO SKIN LESIONS, OVER 4 06/19/19 22 83110-RXRN SKIN LESIONS, OVER 4 07/17/19 25 22786-ZLRQ SKIN LESIONS, OVER 4 04/16/19 25 46561-IKDA SKIN LESIONS, OVER 4 12/01/19 24 66977-FRIT SKIN LESIONS, OVER 4 09/01/19 24 05273-JWMY SKIN LESIONS, OVER 4 06/02/19 24 54393-XJIX SKIN LESIONS, OVER 4 02/25/20 23 84357-OCRE SKIN LESIONS, OVER 4 11/19/19 23 45872-FPDE SKIN LESIONS, OVER 4 08/13/19 23 43157-TPHU SKIN LESIONS, OVER 4 05/14/19 23 39020-GADE SKIN LESIONS, OVER 4 12/18/19 22 01458-BFNO SKIN LESIONS, OVER 4 09/18/19 22 33781-JBSY SKIN LESIONS, OVER 4 09/11/19 21 54191-BBCT SKIN LESIONS, OVER 4 03/19/19 22 74891-ESRP SKIN LESIONS, OVER 4 12/11/19 21 Insurance Providers Payer Name Payer Address Payer Phone Subscriber Number Group Number Insured Name Patient Relationship to Insured Coverage Start Date Coverage End Date [employer] [place] [address] [id number] Rey Gil Self - patient is the insured Medical (General) History Medical History History ICD Code Alcohol abuse Anxiety 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 Benign prostatic hyperplasia (BPH) Congestive heart failure Depression Dementia, vascular dementia w/delusions & behavioral disturbance Diabetes mellitus Fall Risk Gastroesophageal reflux disease (GERD) Gout Hallucinations Heart cardiac Infarction HIGH RISK OF DELIRIUM Hyperlipidemia Hypertension Impaired memory Kidney disease 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
[2024-12-05 12:13] LABS: UACC Culture Trigger YES
[2024-12-05 12:16] LABS: Resp Syncy Virus RNA Qual PCR NEGATIVE (Negative); SARS COV2 PCR INHOUSE NEGATIVE (Negative)
--- NOTE | 2024-12-05 12:38 | PC.NURSE ---
Called pharmacy for med reconciliation, will be updating and ordering soon per pharmacy. Report given to overflow RNSlade
--- NOTE | 2024-12-05 13:48 | PHA.MEDREC ---
Addendum entered by Yudelka Moran [facility]ly [facility] 12/05/24 14:34: MED REC REVIEWED BY [facility] Addendum entered by Gwen Navarro 12/05/24 13:50: Dory Canela [phone] Original Note: Pharmacy Consult ? Medication Reconciliation Pharmacy has completed the medication reconciliation. Patients daughter had packing list of Patient mail order, however it didn't have directions on it. Called [facility] pharmacy and they faxed us a list. Utilized list from pharmacy to confirm med list . Daughter states patient last had his medications last night.
--- NOTE | 2024-12-05 14:29 | MHC.CM.ED ---
Received case management consult from Katelin TOTH. Patient came to the ER due to a fall. Found to have an UTI. Physical therapy eval completed. Home services is recommended. Met with patient and daughter, Melina, in regards to discharge planning. Patient's primary language is [place]ian, but patient is able to speak and understand [place]. Patient declines interpreter for the deaf. Patient lives with Melina, ambulates with a cane/walker, and has a nurse through [facility]. PCP verified. Patient interested in completing new HCP. HCP completed, signed and witnessed. Original given to patient. Copy placed in chart. Patient is active with [facility]. T/W spoke with Marti at [facility] via telephone at [phone]. Marti requesting er d/c summary be faxed to [phone]. After [facility] receives documentation will arrange home therapy. Marti stated patient also goes to their day program. Melina will transport patient home. Patient, Slade Summers RN and Katelin TOTH aware. Continue to monitor for d/c needs.
[2024-12-05 14:52] VITALS: BP 150/87; PULSE 77; RESP 18; TEMP 36.5; O2SAT 98
[2024-12-05 15:03] VITALS: BP 150/87; PULSE 77; RESP 18; TEMP 36.5; O2SAT 98
== END 2024-12-05 15:05 | disposition home or self-care (01) ==
PROVIDERS: Physician Assistant Medical; Emergency Provider Emergency Medicine; PCP Internal Medicine
DX: N39.0 Urinary tract infection, site not specified (principal); R53.1 Weakness; M25.552 Pain in left hip; I48.91 Unspecified atrial fibrillation; Z79.01 Long term (current) use of anticoagulants; I10 Essential (primary) hypertension; F03.90 Unspecified dementia, unspecified severity, without behavioral disturbance, psychotic disturbance, mood disturbance, and anxiety; Z86.79 Personal history of other diseases of the circulatory system; Z79.899 Other long term (current) drug therapy; Z91.81 History of falling
CPT/HCPCS: 36415; 70450; 72125; 73502; 80053; 81001; 83735; 84484; 85025; 85610; 87086; 87088; 87637; 93005; 96360; 96361; 97162; 99284

== ENCOUNTER → 2024-12-05 08:22 | Outpatient (BNV) | payer OTHER, SELFPAY | PROVIDERS: PCP Internal Medicine; Visit Provider Radiology Diagnostic Radiology | DX: M50.221 Other cervical disc displacement at C4-C5 level (principal); S09.90XA Unspecified injury of head, initial encounter; M25.552 Pain in left hip | CPT/HCPCS: 70450; 72125; 73502 ==

== ENCOUNTER → 2024-12-05 08:22 | Outpatient (BNV) | payer OTHER, SELFPAY | PROVIDERS: Emergency Provider Emergency Medicine; PCP Internal Medicine; Visit Provider Internal Medicine Cardiovascular Disease | DX: I49.1 Atrial premature depolarization (principal) | CPT/HCPCS: 93010 ==

== ENCOUNTER 2024-12-19 12:54 | Inpatient (IN) | payer OTHER, SELFPAY ==
--- NOTE | ~2024-12-19 | CT_ITS ---
EXAMINATION: CT ABDOMEN PELVIS WITH IV CONTRAST HISTORY: abdominal pain COMPARISON: Comparison is made with the prior examination dated 07/15/2019. TECHNIQUE: CT scan of the abdomen and pelvis was performed following administration of 85 mL Omnipaque 350 using standard departmental protocol. Coronal and sagittal reformatted images were generated and reviewed. Oral contrast material was not administered at the request of the referring physician. This CT exam was performed with one or more of the following dose reduction techniques: automated exposure control, adjustment of the mA and/or kV according to patient size, use of iterative reconstruction technique. DLP: 792 mGy-cm FINDINGS: LOWER CHEST: The visualized lung bases are clear. There is no pleural effusion. CARDIOVASCULATURE: The heart is normal in size. There is no pericardial effusion. LIVER: The liver is normal in size and contour. No liver mass is identified. The hepatic and portal veins are patent. GALLBLADDER / BILE DUCTS: The gallbladder is surgically absent. There is no intra or extrahepatic biliary ductal dilatation. SPLEEN: The spleen is normal in size. No focal splenic lesion is identified. PANCREAS: There is a 2.0 cm cystic lesion in the pancreatic head is larger than on the prior study (previously 1.5 cm). ADRENAL GLANDS: Within normal limits. KIDNEYS/RETROPERITONEUM: No renal calculi are identified. There is no hydronephrosis. There is a probable 1.7 cm cyst at the upper pole of the right kidney and a 3.1 cm cyst at the upper pole of the left kidney. There is a retroaortic left renal vein. LYMPH NODES: No abdominal or pelvic lymphadenopathy. VASCULATURE: The abdominal aorta demonstrates atherosclerotic calcification, but is normal in caliber. MESENTERY/PERITONEUM: No free fluid. No masses. There is no free intraperitoneal gas. STOMACH: The stomach is collapsed, limiting evaluation. SMALL BOWEL: The small bowel is normal in caliber. COLON: There is extensive diverticulosis of the colon, without evidence of diverticulitis. There is focal wall thickening of the hepatic flexure of the colon (series 12, images 36-38). APPENDIX: The appendix is not seen, however no inflammatory changes are seen adjacent to the cecum. URINARY BLADDER/PELVIC ORGANS: Multiple bladder diverticula are noted. The prostate is enlarged. 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 CT/CT abdomen pelvis w IV con IMPRESSION: 1. Focal wall thickening of the hepatic flexure of the colon. Findings are suspicious for a mass lesion. Colonoscopy is suggested. 2. Colonic diverticulosis without evidence of diverticulitis. 3. 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 Nonemergent MRI is recommended. Electronically signed by: Edward Wetzel MD 12/19/2024 03:53 PM EDT
--- NOTE | ~2024-12-19 | CT_ITS ---
EXAMINATION: CT HEAD WITHOUT CONTRAST CLINICAL INFORMATION: Altered mental status. COMPARISON: 12/05/2024, 10/05/2019. TECHNIQUE: Contiguous axial imaging was performed from the skull base to vertex without intravenous administration of contrast. This CT examination was performed using dose optimization techniques as appropriate, variously including the following: *Automated exposure control *Adjustment of mA and/or kV according to patient size (this includes techniques or standardized protocols for targeted exams where dose is matched to indication/reason for exam; i.e. extremities or head) *Use of iterative reconstruction technique FINDINGS: There is no evidence of intracranial hemorrhage or extra-axial fluid collection. There is no mass effect, or edema. No CT evidence of acute territorial infarct. Ventricles, sulci, and cisterns are normal in size and configuration for patient age. No hydrocephalus. No midline shift. Negative hyperdense MCA sign. Negative insular ribbon sign. Patchy periventricular and deep white matter hypoattenuation is consistent with mild to moderate small vessel ischemic changes. Old lacunar type infarcts noted in the right basal ganglia, and left subinsular region. Normal pituitary. Globes and orbital contents image normally. There are bilateral lens replacements. No extracranial soft tissue abnormalities. The paranasal sinuses, mastoid air cells, and tympanic cavities are normally aerated. No suspicious bony abnormalities. There are no acute fractures evident. CT/CT head/brain wo IV con IMPRESSION: No acute intracranial abnormality. Stable chronic findings as discussed. Electronically signed by: Rigoberto Marquez MD 12/19/2024 03:52 PM EDT
[2024-12-19 13:29] VITALS: BP 100/60; BP 122/40; PULSE 62; PULSE 85; RESP 18; TEMP 36.8; O2SAT 96; O2SAT 98; BMI 23.3
--- NOTE | 2024-12-19 13:58 | ED.ABDPAIN ---
HPI - Abdominal Pain General Chief Complaint: Abdominal Pain Stated Complaint: weakness, lethargy Time Seen by Provider: 12/19/24 13:54 Source: EMS and other (spoke with his Daughter Melina) Mode of arrival: EMS Limitations: altered mental status History of Present Illness ED Provider: HPI narrative: 84-year-old male with a history of recurrent UTIs, dementia AFib on Eliquis, hypertension, GERD, depression, presenting via EMS with altered mentation reports of nausea vomiting and diarrhea, patient is very lethargic, states I have abdominal pain but really is not able to provide additional information to me, I did call his daughter who is the primary devulcanizer charger, and states that he seemed fine in the morning, he does have episodes when he becomes lethargic, recently treated for UTI, but overall mental state has been declining in the past 3 weeks, patient's daughter will be coming to the ER at some point. Related Data Home Medications ?Medication ?Instructions ?Recorded ?Confirmed tamsulosin 0.4 mg capsule 0.8 mg PO DAILY 12/10/19 12/05/24 acetaminophen 325 mg tablet 650 mg PO BID PRN Fever Or Pain 12/05/24 12/05/24 apixaban 5 mg tablet (Eliquis) 5 mg PO BID 12/05/24 12/05/24 atorvastatin 80 mg tablet 80 mg PO BEDTIME 12/05/24 12/05/24 banana 1 ea PO BID PRN Diarrhea 12/05/24 12/05/24 flakes-transgalactooligosaccharide oral powder packet (Banatrol Plus oral powder packet) cholecalciferol (vitamin D3) 50 50 mcg PO DAILY 12/05/24 12/05/24 mcg (2,000 unit) capsule (Vitamin D3) cyanocobalamin (vitamin B-12) 500 500 mcg PO DAILY 12/05/24 12/05/24 mcg tablet (Vitamin B-12) empagliflozin 10 mg tablet 10 mg PO DAILY 12/05/24 12/05/24 (Jardiance) gabapentin 100 mg capsule 100 mg PO BID 12/05/24 12/05/24 lisinopril 5 mg tablet 5 mg PO BEDTIME 12/05/24 12/05/24 trazodone 50 mg tablet 50 mg PO BEDTIME 12/05/24 12/05/24 Previous Rx's ?Medication ?Instructions ?Recorded blood sugar diagnostic (FreeStyle #50 ea 01/03/20 Test strips) blood-glucose meter (FreeStyle #1 ea 01/03/20 Lite Meter kit) lancets 28 gauge (FreeStyle #100 ea 01/03/20 Lancets) cefuroxime axetil 250 mg tablet 500 mg (2 x 250 mg) PO BID 7 days 12/05/24 #28 tabs fluconazole 150 mg tablet 150 mg PO ONCE 1 dose #1 tab 12/05/24 Allergies Allergy/AdvReac Type Severity Reaction Status Date / Time penicillin V Allergy Unknown Rash & Verified 12/19/24 13:32 Dizziness, rash and dizziness Review of Systems Review of Systems Yes Unobtainable due to mental status PMFSH Past Medical History Medical History Dyslipidemia Thoracic aneurysm without mention of rupture Confusion Leukocytosis Infarction of right basal ganglia Peripheral vascular disease Hyperlipidemia Essential hypertension Type 2 diabetes mellitus with unspecified complications Hx of cataract Surgical History S/P cardiac cath (~12/2019) History of cataract surgery Hx of appendectomy Hx of cholecystectomy Hx of pyloroplasty Hx of vagotomy Family History Family History Father Throat cancer Mother Medical history unknown Brother No problems noted. Social History Social History Alcohol intake: never Patient Tobacco Use Status: Never used Tobacco Smoked in Last 30 Days: No Advance Directives: Yes Advance Directives on File: Yes Advance Directives Date on File: 12/05/24 Physical Exam ED Vital Signs: Vital Signs - 24 hr 12/19/24 13:29 12/19/24 16:53 12/19/24 19:09 Temperature 98.2 F 97.7 F Pulse Rate 62 98 70 Respiratory Rate 18 13 16 Blood Pressure 122/40 L 133/71 149/66 H Pulse Oximetry 96 96 98 Oxygen Delivery Method Room Air Room Air Room Air BMI result Body Mass Index 23.3 Const Other: General: ?Appears lethargic ? ?pupils 2 mm reactive, dry oral mucosa, no scleral icterus ? Neck: Supple, no LAD ? ?CV: RRR, no obvious murmurs appreciated ? ?Resp: ?No wheezing rales rhonchi no stridor moving air well ? Abd: Bowel sounds are present, generalized tenderness no rebound no rigidity ? ?MSK: FROM, strength 5/5 all extremities ? Skin: Warm, dry, intact, ? ?Neuro: ?Alert and oriented to self and location poor historian, moving upper and lower extremities symmetrically, no obvious facial asymmetry noted, Course Reevaluation(s) Reevaluation #1: DR. Reyes's progress note: 84-year-old male came in for evaluation of confusion and decreased activity, patient had head CT / abdomen CT which was unremarkable for any acute, patient found to have a UTI there is no sepsis. will start on ceftriaxone, will get a medical admission case discussed with Dr. Royal. Time: 19:40 Medical Decision Making Medical Decision Making [facility] Narrative: 2:19 PM 12/19/2024 (Dr. West French): I spoke to patient's daughter to provide additional information, patient presented with reports of nausea or vomiting he endorses abdominal pain but he is extremely lethargic I did check to make sure that EMS did not medicate him with fentanyl that was my initial impression, he does have history of recurrent UTIs and during his last visit he was appropriately covered with fluconazole, it sounds like in the past 3 weeks he has been declining and has these episodes of lethargy which can be waxing waning picture in worsening dementia, we will obtain imaging to evaluate for stroke, bleed, CT abdomen and pelvis to evaluate for any obstructive patterns, infectious etiology, we will give fluids, then I spoke to his patient's daughter and hoping that by the time she arrives we will have some additional information as to the medical results and to help us with disposition 4:03 PM 12/19/2024 (Dr. West French): Patient's daughter is still not in the ER, CT without acute findings but there is possibly a mass on the CT of the abdomen and pelvis though need follow up, CT brain without acute injuries, urine is still pending Differential Diagnosis Differential Diagnoses: The differential diagnosis associated with the presentation includes Admission/Observation Consideration of admission/observation: Escalation of care including admission/observation considered Lab Data MDM Lab Attestation statement: I reviewed the patient's lab results. 12/19/24 14:41 12/19/24 14:41 Labs: Lab Results 12/19/24 12/19/24 Range/Units 14:41 18:24 WBC 10.6 (4.8-10.8) X10*3/uL RBC 3.97 L (4.60-5.80) X10*6/uL Hgb 11.9 L (14.0-18.0) g/dl Hct 37.2 L (42.0-52.0) % MCV 93.7 (80.0-98.0) fL MCH 30.0 (27.0-33.0) pg MCHC 32.0 (31.0-36.0) g/dl RDW 14.1 (11.0-16.0) % Plt Count 205 (160-400) X10*3/uL MPV 12.3 (9.4-12.4) fL Immature Gran % (Auto) 0.4 (0.0-0.4) % Neut % (Auto) 75.6 H (45-73) % Lymph % (Auto) 13.3 L (20-40) % [place] % (Auto) 10.0 (2-11) % Eos % (Auto) 0.2 (0-4) % Baso % (Auto) 0.5 (0-2) % Lymph # (Auto) 1.4 (1.2-4.9) X10*3/uL [place] # (Auto) 1.1 (0.1-1.2) X10*3/uL Eos # (Auto) 0.0 (0.0-0.4) X10*3/uL Baso # (Auto) 0.1 (0.0-0.2) X10*3/uL Abs Immat Gran (auto) 0.04 H (0.00-0.03) X10*3/uL Absolute Neuts (auto) 8.1 (2.0-8.3) x10*3/uL Absolute Nucleated RBC 0.000 (0.0-0.012) X10*3/uL Nucleated RBC % (auto) 0.0 (0.0-0.2) /100WBC Sodium 141 (135-145) mmol/L Potassium 4.1 (3.3-5.1) mmol/L Chloride 110 H (96-108) mmol/L Carbon Dioxide 26 (22-29) mmol/L Anion Gap 9 L (12-20) BUN 19 H (9-16) mg/dL Creatinine 1.13 (0.5-1.4) mg/dL Estim Creat Clear Calc 52.7 Estimated GFR > 60 Random Glucose 178 H (60-115) mg/dL Lactic Acid 1.4 (0.5-2.0) mmol/L Calcium 8.8 (8.4-10.2) mg/dL Magnesium 2.2 (1.6-2.6) mg/dL Total Bilirubin 0.9 (0.0-1.0) mg/dL AST 18 (5-37) U/L ALT 18 (0-40) U/L Alkaline Phosphatase 164 H (39-117) U/L Ammonia 19 (13-55) umol/L Troponin I High Sens 9.9 D (<3.5-35.0) ng/L Total Protein 6.5 (6.5-8.0) g/dL Albumin 3.9 (3.5-5.0) g/dL Lipase 14 (8-78) U/L Urine Color Yellow Urine Appearance Turbid Urine pH 5.5 (5.0-9.0) Ur Specific [place] >= 1.030 H (1.005-1.025) Urine Protein 100 (2+) H (Neg-Trace) mg/dL Urine Glucose (UA) >=1000 H (Negative) mg/dL Urine Ketones Negative (Negative) mg/dL Urine Blood Moderate (2+) H (Negative) Urine Nitrite Negative (Negative) Ur Leukocyte Esterase Large (3+) H (Negative) Urine RBC 6-10 H (0-2) /HPF Urine WBC >50 H (0-5) /HPF Ur Squamous Epith Cells 3-5 (0-2) /HPF Urine Bacteria 4+ (None Seen) Hyaline Casts 0-2 (0-2) /LPF Independent Interpretation I performed an independent interpretation of an: EKG (61 beats per minute, frequent PVCs, no ST-T changes) Radiology Impression Discussion of test interpretation with radiology: I have reviewed the radiologist's reading. Radiologist Impression: CT/CT abdomen pelvis w IV con IMPRESSION: 1. Focal wall thickening of the hepatic flexure of the colon. Findings are suspicious for a mass lesion. Colonoscopy is suggested. 2. Colonic diverticulosis without evidence of diverticulitis. 3. 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 Nonemergent MRI is recommended. CT brain without acute injuries Independent Historian Clinical information obtained from an independent historian. History obtained from or confirmed by: EMS and Other (Daughter) Medications Administered Discontinued Medications Generic Name Dose Route Start Last Admin Trade Name Freq PRN Reason Stop Dose Admin Sodium Chloride 1,000 mls @ 999 mls/hr 12/19/24 14:15 12/19/24 17:30 Ns IV 12/19/24 15:15 Infused .Q1H1M MALDONADO Infusion Iohexol 100 ml 12/19/24 15:27 12/19/24 15:27 Iohexol 350 Mg/Ml 100 Ml Infus..Btl IV 12/19/24 15:28 85 ml ONCE ONE Administration Ondansetron HCl 4 mg 12/19/24 14:01 12/19/24 14:47 Ondansetron Hcl 4 Mg/2 Ml Vial IVPUSH 12/19/24 14:02 4 mg ONCE ONE Administration Critical Care Time Critical Care Time Critical Care Time: Yes Total Critical Care Time: 36 Attestation: Time is exclusive of separately billable procedures. Time includes: direct patient care, patient reassessment, coordination of patient care, interpretation of data (laboratory data, pulse oximetry, arterial blood gases and chest xrays), review of patient's medical records, medical consultation and documentation of patient care. Procedures excluded from critical care time: central intravenous line placement and electrocardiography. Discharge Plan Discharge Clinical Impression: Confusion, Abdominal pain, Acute UTI Patient Disposition: Admitted As Inpatient Print Language: Micronesian
--- NOTE | 2024-12-19 14:03 | ECG_ITS ---
Test Reason : ABD PAIN Blood Pressure : */* mmHG Vent. Rate : 61 BPM Atrial Rate : 61 BPM P-R Int : 182 ms QRS Dur : 82 ms QT Int : 430 ms P-R-T Axes : 74 -7 -11 degrees QTcB Int : 432 ms Sinus rhythm with frequent Premature ventricular complexes Minimal voltage criteria for LVH, may be normal variant ( R in aVL ) Inferior infarct , age undetermined Abnormal ECG When compared with ECG of 05-Dec-2024 09:07, Premature ventricular complexes are now Present Premature supraventricular complexes are no longer Present Inferior infarct is now Present Referred By: West French Electronically Signed By: CED RIDDLE MD
[2024-12-19 14:51] LABS: MANUAL DIFF FLAG NO
[2024-12-19 14:57] LABS: Hematocrit 37.2 % (42.0-52.0); Hemoglobin 11.9 g/dl (14.0-18.0); Imm Gran Abs Auto 0.04 X10*3/uL (0.00-0.03); Imm Gran Pct Auto 0.4 % (0.0-0.4); Lymphocytes Absolute Auto 1.4 X10*3/uL (1.2-4.9); Mean Corpuscular HGB Conc 32.0 g/dl (31.0-36.0); Mean Corpuscular Hemoglobin 30.0 pg (27.0-33.0); Mean Corpuscular Volume 93.7 fL (80.0-98.0); NRBC Abs Auto 0.000 X10*3/uL (0.0-0.012); NRBC Pct Auto 0.0 /100WBC (0.0-0.2); Platelet Count 205 X10*3/uL (160-400); Red Blood Count 3.97 X10*6/uL (4.60-5.80); White Blood Count 10.6 X10*3/uL (4.8-10.8)
[2024-12-19 15:16] LABS: Alanine Aminotransferase 18 U/L (0-40); Albumin Level 3.9 g/dL (3.5-5.0); Alkaline Phosphatase 164 U/L (39-117); Anion Gap 9 (12-20); Aspartate Amino Transferase 18 U/L (5-37); Blood Urea Nitrogen 19 mg/dL (9-16); Calcium 8.8 mg/dL (8.4-10.2); Carbon Dioxide 26 mmol/L (22-29); Chloride 110 mmol/L (96-108); Creatinine Clr Calc Pharmacy 52.7; Estimated Glomerular Filt Rate > 60; Lipase 14 U/L (8-78); Magnesium 2.2 mg/dL (1.6-2.6); Potassium 4.1 mmol/L (3.3-5.1); Sodium 141 mmol/L (135-145); Total Protein 6.5 g/dL (6.5-8.0)
[2024-12-19 15:19] LABS: Troponin-I High Sensitivity 9.9 ng/L (<3.5-35.0)
[2024-12-19] MEDS: iohexoL 350 MG/ML 100 ML INFUS..BTL IV (15:27)
[2024-12-19 15:30] LABS: Ammonia 19 umol/L (13-55)
[2024-12-19 16:53] VITALS: BP 133/71; PULSE 98; RESP 13; O2SAT 96
[2024-12-19 18:34] LABS: Appearance Urine Turbid; Glucose Urine UA >=1000 mg/dL (Negative); PH 5.5 (5.0-9.0); Specific Gravity - Urine >= 1.030 (1.005-1.025); UMIC TRIGGER UACC YES
[2024-12-19 18:54] LABS: UACC Culture Trigger YES
--- NOTE | 2024-12-19 19:00 | PC.NURSE ---
this rn assumed care of tp at 1900. pt daughter at bedside, pt resting in stretcher, offers no complaints at this time awaiting ed doc
[2024-12-19 19:09] VITALS: BP 149/66; PULSE 70; RESP 16; TEMP 36.5; O2SAT 98
--- NOTE | 2024-12-19 20:25 | PHA.MEDREC ---
Addendum entered by Erik Sharma RPh 12/19/24 20:55: med rec reviewed Original Note: Pharmacy Consult ? Medication Reconciliation Pharmacy has completed the medication reconciliation. Spoke to patients daughter Melina over the phone to confirm med list. Daughter was able to read off patients medication bottles. Patient had all his morning medications today.
--- NOTE | 2024-12-19 20:44 | PC.NURSE ---
camera placed on pt for safety, pt high fall risk and confused at baseline.
--- NOTE | 2024-12-19 21:09 | P.HPHOSP_ITS ---
History of Present Illness Date of Service: 12/19/24 Attending physician on admission: Mk Royal Chief Complaint: AMS Patient is an 84-year-old male with a past medical history significant for recurrent UTIs, dementia, AFib on Eliquis, hypertension, GERD, depression and type 2 diabetes, who presented to the ED due to altered mental status, hypotension, weakness, diarrhea, nausea, vomiting lethargy and abdominal pain. The patient's daughter provided the history via phone to the ED provider as the patient was unable to provide a history. She reported that he has been declining mentally over the past 3 weeks adn has had significant diarrhea since taking abx for frequent UTIs. Review of Systems 2 Review of Systems: Yes Unobtainable due to mental status PMFSH Medical History Dyslipidemia Thoracic aneurysm without mention of rupture Confusion Leukocytosis Infarction of right basal ganglia Peripheral vascular disease Hyperlipidemia Essential hypertension Type 2 diabetes mellitus with unspecified complications Hx of cataract Family History Father Throat cancer Mother Medical history unknown Brother No problems noted. Surgical History S/P cardiac cath (~12/2019) History of cataract surgery Hx of appendectomy Hx of cholecystectomy Hx of pyloroplasty Hx of vagotomy Social History Alcohol intake: never Patient Tobacco Use Status: Never used Tobacco Smoked in Last 30 Days: No Advance Directives: Yes Advance Directives on File: Yes Advance Directives Date on File: 12/05/24 Meds Allergies Allergy/AdvReac Type Severity Reaction Status Date / Time penicillin V Allergy Unknown Rash & Verified 12/19/24 13:32 Dizziness, rash and dizziness Active Medications: Current Medications Acetaminophen (Acetaminophen 325 Mg Tablet) 650 mg PO Q6H PRN PRN Reason: Pain, Mild 1-3,fever,headache Atorvastatin Calcium (Atorvastatin Calcium 80 Mg Tablet) 80 mg PO BEDTIME MALDONADO Calcium Carbonate (Calcium Carbonate 750 Mg Tab.Chew) 750 mg PO Q4H PRN PRN Reason: Heartburn Ceftriaxone Sodium (Ceftriaxone Sodium 1 Gm Vial) 1 gm IVPUSH Q24H MALDONADO Last Admin: 12/19/24 20:33 Dose: 1 gm Cyanocobalamin (Cyanocobalamin (Vitamin B-12) 500 Mcg Tablet) 500 mcg PO DAILY [facility] Gabapentin (Gabapentin 100 Mg Capsule) 100 mg PO BID [facility] Lisinopril (Lisinopril 5 Mg Tablet) 5 mg PO BEDTIME MALDONADO; Protocol Magnesium Hydroxide (Milk Of Magnesia 30 Ml Oral.Susp) 30 ml PO DAILY PRN PRN Reason: Constipation Melatonin (Melatonin 3 Mg Tablet) 6 mg PO BEDTIME PRN PRN Reason: Insomnia Sodium Chloride (0.9 % Sodium Chloride Flush 3 Ml Syringe) 3 ml IVFLUSH QSHIFT [facility] Tamsulosin HCl (Tamsulosin Hcl 0.4 Mg Capsule) 0.8 mg PO DAILY [facility] Trazodone HCl (Trazodone Hcl 50 Mg Tablet) 50 mg PO BEDTIME [facility] Vitamin D (Cholecalciferol (Vitamin D3) 25 Mcg Tablet) 50 mcg PO DAILY [facility] Home Medications ?Medication ?Instructions ?Recorded ?Confirmed ?Last Taken ?Type tamsulosin 0.4 mg capsule 0.8 mg PO DAILY 12/10/1911/0512/19/24 History acetaminophen 325 mg tablet 650 mg PO BID PRN Fever Or Pain 12/05/24 12/19/24 Unknown History apixaban 5 mg tablet (Eliquis) 5 mg PO BID 12/05/2412/19/24 History atorvastatin 80 mg tablet 80 mg PO BEDTIME 12/05/2412/18/24 History cholecalciferol (vitamin D3) 50 50 mcg PO DAILY 12/19/24 12/19/24 History mcg (2,000 unit) capsule (Vitamin D3) cyanocobalamin (vitamin B-12) 500 500 mcg PO DAILY 12/19/24 12/19/24 History mcg tablet (Vitamin B-12) empagliflozin 10 mg tablet 10 mg PO DAILY 12/05/2411/0512/19/24 History (Jardiance) gabapentin 100 mg capsule 100 mg PO BID 12/05/2412/1912/19/24 History lisinopril 5 mg tablet 5 mg PO BEDTIME 12/05/2411/0512/18/24 History trazodone 50 mg tablet 50 mg PO BEDTIME 12/05/2412/18/24 History Physical Exam 2 Vital Signs and Narrative: Vital Signs: Last Vital Signs Temp 97.7 F 12/19/24 19:09 Pulse 70 12/19/24 19:09 Resp 16 12/19/24 19:09 BP 149/66 H 12/19/24 19:09 Pulse Ox 98 12/19/24 19:09 O2 Del Method Room Air 12/19/24 19:09 BMI result Body Mass Index 23.3 General: Alert and oriented to person but not place or time, no acute distress Resp: CTA bilaterally CVS: S1, S2, RRR GI: +BS, tender suprapubic region, no distention Skin: Warm, dry Neuro: Cranial nerves II-XII grossly intact bilaterally. Motor grossly intact bilaterally Extremities: No pitting edema Psych:Confused Results Labs 12/19/24 14:41 12/19/24 14:41 Labs: Laboratory Results - last 24 hr 12/19/24 12/19/24 14:41 18:24 MCV 93.7 MCH 30.0 MCHC 32.0 RDW 14.1 Plt Count 205 MPV 12.3 Immature Gran % (Auto) 0.4 Neut % (Auto) 75.6 H Lymph % (Auto) 13.3 L [place] % (Auto) 10.0 Eos % (Auto) 0.2 Baso % (Auto) 0.5 Lymph # (Auto) 1.4 [place] # (Auto) 1.1 Eos # (Auto) 0.0 Baso # (Auto) 0.1 Abs Immat Gran (auto) 0.04 H Absolute Neuts (auto) 8.1 Absolute Nucleated RBC 0.000 Nucleated RBC % (auto) 0.0 Anion Gap 9 L Estim Creat Clear Calc 52.7 Estimated GFR > 60 Random Glucose 178 H Lactic Acid 1.4 Calcium 8.8 Magnesium 2.2 Total Bilirubin 0.9 AST 18 ALT 18 Alkaline Phosphatase 164 H Ammonia 19 Troponin I High Sens 9.9 D Total Protein 6.5 Albumin 3.9 Lipase 14 Urine Color Yellow Urine Appearance Turbid Urine pH 5.5 Ur Specific [place] >= 1.030 H Urine Protein 100 (2+) H Urine Glucose (UA) >=1000 H Urine Ketones Negative Urine Blood Moderate (2+) H Urine Nitrite Negative Ur Leukocyte Esterase Large (3+) H Urine RBC 6-10 H Urine WBC >50 H Ur Squamous Epith Cells 3-5 Urine Bacteria 4+ Hyaline Casts 0-2 Imaging Radiologist's Impressions: Impressions Abdomen/Pelvis CT 12/19/24 15:22 IMPRESSION: 1. Focal wall thickening of the hepatic flexure of the colon. Findings are suspicious for a mass lesion. Colonoscopy is suggested. 2. Colonic diverticulosis without evidence of diverticulitis. 3. 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 Nonemergent MRI is recommended. Electronically signed by: Edward Wetzel MD 12/19/2024 03:53 PM EDT RP Head CT 12/19/24 15:22 IMPRESSION: No acute intracranial abnormality. Stable chronic findings as discussed. Electronically signed by: Rigoberto Marquez MD 12/19/2024 03:52 PM EDT RP Assessment and Plan (1) Acute metabolic encephalopathy: Status: Acute (2) Acute UTI: Status: Acute (3) Abnormal abdominal CT scan: Status: Acute (4) Diarrhea: Status: Acute (5) Chronic anemia: Status: Acute Plan Patient is an 84-year-old male with a past medical history significant for recurrent UTIs, dementia, AFib on Eliquis, hypertension, GERD, depression and type 2 diabetes, who presented to the ED due to altered mental status, hypotension, weakness, diarrhea, nausea, vomiting lethargy and abdominal pain. UA + for UTI Acute metabolic encephalopathy secondary to UTI - ceftriaxone pending culture - follow CBC and BMP - ID consult for recurrent UTIs Abnormal abdominopelvic CT - GI consult - follow-up outpatient for possible MRCP Diarrhea - C diff and GI panel Chronic anemia, stable - follow CBC Paroxysmal AFib - heparin instead of Eliquis pending GI consultation HTN - lisinopril Type 2 diabetes - sliding scale insulin Full code, confirmed with the patient's daughter VTE prophylaxis: Heparin Patient with acute metabolic encephalopathy secondary to UTI, requiring admission for at least 2 midnights stay for IV antibiotics and further evaluation. Quality Stroke Does the patient have a stroke diagnosis?: No VTE Prior VTE?: No VTE Risk Level:: Medical - moderate - high VTE Device Contraindication: Treatment Not Indicated VTE Drug Contraindication: N/A - Med Ordered
[2024-12-19 21:48] VITALS: BP 165/63
--- NOTE | 2024-12-19 21:50 | PC.NURSE ---
pt medicated per may, tolerated whole well with water
--- NOTE | 2024-12-19 22:27 | PC.NURSE ---
pt given turkey sandwich and ice cream at this time per daughter and provider request. pt tolerating well.
[2024-12-19 23:46] VITALS: BP 124/52; PULSE 53; RESP 18; O2SAT 96
[2024-12-20] VITALS (11 sets, daily range): BP systolic 116–167; BP diastolic 45–88; PULSE 58–115; RESP 14–20; TEMP 36.2–38.2; O2SAT 95–98; BMI 23.3
[2024-12-20 05:18] LABS: MANUAL DIFF FLAG NO
[2024-12-20 05:19] LABS: Hematocrit 35.1 % (42.0-52.0); Hemoglobin 11.0 g/dl (14.0-18.0); Imm Gran Abs Auto 0.03 X10*3/uL (0.00-0.03); Imm Gran Pct Auto 0.4 % (0.0-0.4); Lymphocytes Absolute Auto 1.1 X10*3/uL (1.2-4.9); Mean Corpuscular HGB Conc 31.3 g/dl (31.0-36.0); Mean Corpuscular Hemoglobin 29.7 pg (27.0-33.0); Mean Corpuscular Volume 94.9 fL (80.0-98.0); NRBC Abs Auto 0.000 X10*3/uL (0.0-0.012); NRBC Pct Auto 0.0 /100WBC (0.0-0.2); Platelet Count 178 X10*3/uL (160-400); Red Blood Count 3.70 X10*6/uL (4.60-5.80); White Blood Count 7.4 X10*3/uL (4.8-10.8)
--- NOTE | 2024-12-20 05:46 | PC.NURSE ---
pt assisted in incontinent care at this time, small formed BM noted. pt noted to have redness to pubic area and bruising to right hip. unable to place male purewick at this time.
[2024-12-20 06:30] LABS: Alanine Aminotransferase 12 U/L (0-40); Albumin Level 3.5 g/dL (3.5-5.0); Alkaline Phosphatase 151 U/L (39-117); Anion Gap 12 (12-20); Aspartate Amino Transferase 17 U/L (5-37); Blood Urea Nitrogen 15 mg/dL (9-16); Calcium 8.5 mg/dL (8.4-10.2); Carbon Dioxide 24 mmol/L (22-29); Chloride 112 mmol/L (96-108); Creatinine Clr Calc Pharmacy 60.2; Estimated Glomerular Filt Rate > 60; Potassium 4.1 mmol/L (3.3-5.1); Sodium 144 mmol/L (135-145); Total Protein 6.0 g/dL (6.5-8.0)
[2024-12-20 07:26] LABS: Glucose, Whole Blood 120 mg/dL (60-115)
[2024-12-20] MEDS: 0.9 % Sodium Chloride Flush 3 ML SYRINGE IVFLUSH ×3 (08:08→21:14)
--- NOTE | 2024-12-20 09:39 | MHC.CM.PN ---
CM received a call from Monalisa @ [facility] (# [phone]); per her request, clinicals have been faxed to her at [phone].
--- NOTE | 2024-12-20 10:25 | P.PNIM_ITS ---
Subjective Subjective Date of Service: 12/20/24 Interval History: feeling unwell Physical Exam 2 Exam: Exam: General: AO X 3, frail, tired Resp: CTA bilateral, no accessory muscles used CVS: S1,S2,RRR GI: soft, non tender, non distended Neuro: motor grossly weak, alert Psych: appropriate affect, appropriate insight Vital Signs: Vital Signs: Last Vital Signs Temp 99.0 F 12/20/24 07:54 Pulse 115 H 12/20/24 07:54 Resp 17 12/20/24 07:54 BP 162/73 H 12/20/24 07:54 Pulse Ox 97 12/20/24 07:54 O2 Del Method Room Air 12/20/24 07:54 BMI result Body Mass Index 23.3 Objective Data Active Medications Acetaminophen (Acetaminophen 325 Mg Tablet) 650 mg PO Q6H PRN PRN Reason: Pain, Mild 1-3,fever,headache Last Admin: 12/20/24 08:13 Dose: 650 mg Documented By: MADIHA Atorvastatin Calcium (Atorvastatin Calcium 80 Mg Tablet) 80 mg PO BEDTIME [facility] Last Admin: 12/19/24 21:48 Dose: 80 mg Documented By: JOCELINE Calcium Carbonate (Calcium Carbonate 750 Mg Tab.Chew) 750 mg PO Q4H PRN PRN Reason: Heartburn Ceftriaxone Sodium (Ceftriaxone Sodium 1 Gm Vial) 1 gm IVPUSH Q24H [facility] Last Admin: 12/19/24 20:33 Dose: 1 gm Documented By: JOCELINE Cyanocobalamin (Cyanocobalamin (Vitamin B-12) 500 Mcg Tablet) 500 mcg PO DAILY [facility] Last Admin: 12/20/24 08:08 Dose: 500 mcg Documented By: MADIHA Dextrose (Dextrose 50 % 25 Gm/50 Ml Syringe) 25 gm IVPUSH Q15M PRN; Protocol PRN Reason: per Hypoglycemia Standing Ord. Gabapentin (Gabapentin 100 Mg Capsule) 100 mg PO BID [facility] Last Admin: 12/20/24 08:08 Dose: 100 mg Documented By: MADIHA Glucose (Glucose Gel 15 Gm Gel..Gram.) 15 gm PO Q15M PRN; Protocol PRN Reason: per Hypoglycemia Standing Ord. Heparin Sodium (Porcine) (Heparin Sodium,Porcine 5,000 Unit/Ml Vial) 5,000 unit SUBCUT Q12H [facility] Last Admin: 12/19/24 21:48 Dose: 5,000 unit Documented By: JOCELINE Insulin Human Lispro (Insulin Lispro 100 Unit/Ml 3 Ml Vial) 0 unit SUBCUT QIDACHS [facility]; Protocol Last Admin: 12/20/24 07:24 Dose: Not Given Documented By: MADIHA Non-Admin Reason: No Insulin Coverage Lisinopril (Lisinopril 5 Mg Tablet) 5 mg PO BEDTIME [facility]; Protocol Last Admin: 12/19/24 21:48 Dose: 5 mg Documented By: JOCELINE Magnesium Hydroxide (Milk Of Magnesia 30 Ml Oral.Susp) 30 ml PO DAILY PRN PRN Reason: Constipation Melatonin (Melatonin 3 Mg Tablet) 6 mg PO BEDTIME PRN PRN Reason: Insomnia Sodium Chloride (0.9 % Sodium Chloride Flush 3 Ml Syringe) 3 ml IVFLUSH QSHIFT [facility] Last Admin: 12/20/24 08:08 Dose: 3 ml Documented By: MADIHA Tamsulosin HCl (Tamsulosin Hcl 0.4 Mg Capsule) 0.8 mg PO DAILY [facility] Last Admin: 12/20/24 08:07 Dose: 0.8 mg Documented By: MADIHA Trazodone HCl (Trazodone Hcl 50 Mg Tablet) 50 mg PO BEDTIME [facility] Last Admin: 12/19/24 21:50 Dose: 50 mg Documented By: JOCELINE Vitamin D (Cholecalciferol (Vitamin D3) 25 Mcg Tablet) 50 mcg PO DAILY [facility] Last Admin: 12/20/24 08:07 Dose: 50 mcg Documented By: MADIHA Labs 12/20/24 03:50 12/20/24 03:50 Labs: Laboratory Results - last 24 hr 12/19/24 12/19/24 12/20/24 14:41 18:24 03:50 MCV 93.7 94.9 MCH 30.0 29.7 MCHC 32.0 31.3 RDW 14.1 14.1 Plt Count 205 178 MPV 12.3 12.5 H Immature Gran % (Auto) 0.4 0.4 Neut % (Auto) 75.6 H 74.6 H Lymph % (Auto) 13.3 L 14.7 L [place] % (Auto) 10.0 8.3 Eos % (Auto) 0.2 1.2 Baso % (Auto) 0.5 0.8 Lymph # (Auto) 1.4 1.1 L [place] # (Auto) 1.1 0.6 Eos # (Auto) 0.0 0.1 Baso # (Auto) 0.1 0.1 Abs Immat Gran (auto) 0.04 H 0.03 Absolute Neuts (auto) 8.1 5.5 Absolute Nucleated RBC 0.000 0.000 Nucleated RBC % (auto) 0.0 0.0 Anion Gap 9 L 12 Estim Creat Clear Calc 52.7 60.2 Estimated GFR > 60 > 60 POC Glucose Random Glucose 178 H 133 H Lactic Acid 1.4 Calcium 8.8 8.5 Magnesium 2.2 Total Bilirubin 0.9 0.7 AST 18 17 ALT 18 12 Alkaline Phosphatase 164 H 151 H Ammonia 19 Troponin I High Sens 9.9 D Total Protein 6.5 6.0 L Albumin 3.9 3.5 Lipase 14 Urine Color Yellow Urine Appearance Turbid Urine pH 5.5 Ur Specific [place] >= 1.030 H Urine Protein 100 (2+) H Urine Glucose (UA) >=1000 H Urine Ketones Negative Urine Blood Moderate (2+) H Urine Nitrite Negative Ur Leukocyte Esterase Large (3+) H Urine RBC 6-10 H Urine WBC >50 H Ur Squamous Epith Cells 3-5 Urine Bacteria 4+ Hyaline Casts 0-2 12/20/24 07:21 MCV MCH MCHC RDW Plt Count MPV Immature Gran % (Auto) Neut % (Auto) Lymph % (Auto) [place] % (Auto) Eos % (Auto) Baso % (Auto) Lymph # (Auto) [place] # (Auto) Eos # (Auto) Baso # (Auto) Abs Immat Gran (auto) Absolute Neuts (auto) Absolute Nucleated RBC Nucleated RBC % (auto) Anion Gap Estim Creat Clear Calc Estimated GFR POC Glucose 120 H Random Glucose Lactic Acid Calcium Magnesium Total Bilirubin AST ALT Alkaline Phosphatase Ammonia Troponin I High Sens Total Protein Albumin Lipase Urine Color Urine Appearance Urine pH Ur Specific [place] Urine Protein Urine Glucose (UA) Urine Ketones Urine Blood Urine Nitrite Ur Leukocyte Esterase Urine RBC Urine WBC Ur Squamous Epith Cells Urine Bacteria Hyaline Casts Assessment and Plan (1) Type 2 diabetes mellitus with unspecified complications: Status: Acute Plan 84M PMH recurrent UTI, dementia, paroxysmal AFib on Eliquis, hypertension, GERD, depression, diabetes presented with altered mental status and weakness found to have urinary tract infection and suspicious colonic mass Acute metabolic encephalopathy due to urinary tract infection Continue ceftriaxone, follow up cultures Possible colonic mass GI eval Diarrhea Check stool studies Paroxysmal AFib Holding Eliquis for possible colonoscopy and biopsy Now with RVR, Lopressor added DVT prophylaxis-heparin subQ Full code reason for continued hospitalization:cultures Quality Stroke Does the patient have a stroke diagnosis?: No VTE Prior VTE?: No VTE Risk Level:: Medical - moderate - high VTE Device Contraindication: Treatment Not Indicated VTE Drug Contraindication: N/A - Med Ordered
--- NOTE | 2024-12-20 11:02 | MHC.CM.PN ---
CM met with Patient and his (they are ) at bedside in the ED. Patient lives in a house with his Daughter/HCP/Melina and his Ex- and he uses a walker to assist with mobility.Patient is part of the [employer] program and he attends Adult Day Care 5X/Week, Nurse 1X/Week, PT 2X/Week, and a [employer] in the home. Patient and his family (Daughter & ) feel that STR will be necessary and CM has referred to all facilities contracted with Patient's insurance. Patient will benefit from a PT Eval to assist with disposition. CM has initiated and will follow for dc planning. PCP is Dr. Shellie Moser.
--- NOTE | 2024-12-20 12:51 | PC.NURSE ---
vitals assessment - mild fever 100.6 rectal, HR 112-120. Pt reporting chills. Provider notified. OK to give Tylenol 650 as ordered in MAY. last dose was 4 hours ago, ok to give now per Dr. Escalera
[2024-12-20 13:04] LABS: Glucose, Whole Blood 205 mg/dL (60-115)
[2024-12-20 14:03] LABS: Glucose, Whole Blood 214 mg/dL (60-115)
[2024-12-20 16:24] LABS: Glucose, Whole Blood 172 mg/dL (60-115)
--- NOTE | 2024-12-20 17:50 | P.EN_ITS ---
Event Note Date of Service: 12/20/24 Event Note: GI Consult-Full note dictated-History from the patient with a behavioral medical director but this was limited due to some dementia. Majority of history is from his daughter Melina, who is his HCP as well, and from the EMR. Imp: 84 yo male admitted with a UTI and possible sepsis, with an underlying history of UTI's, diarrhea, weight loss despite a good appetitie and intake, and the incidental finding on a CT scan of a ? of a colon lesion at the Hepatic Flexure. Rec: R/O C.diff. Diet as tolerated for now. Will plan for a colonoscopy once he has stabilized from his UTI/possible uorsepsis so as to R/O any colitis and/or neoplasm. Full consent has been obtained from his daughter for this, including risks of bleeding and perforation. Will plan for the colonoscopy on Tuesday, 12/25, due to the three day weekend and holiday. D/W his daughter in detail and she is comfortable with this plan. Thanks Time Spent With Patient Time: Total time managing care of this patient today ____ minutes.
--- NOTE | 2024-12-20 18:39 | PC.NURSE ---
Patient received a cheesburger and mashed potatoes for dinner. Patient was offered both food items but turned away and refused them saying he didnt want any. Pt did accept trever dez with a straw.
[2024-12-20 21:08] LABS: Glucose, Whole Blood 186 mg/dL (60-115)
[2024-12-21 03:34] VITALS: BP 141/70; PULSE 84; RESP 18; TEMP 36.8; O2SAT 95
--- NOTE | 2024-12-21 04:05 | CONS_ITS ---
DATE OF SERVICE: 12/20/2024 REASON FOR CONSULTATION: Abnormal CT scan of colon and diarrhea. Weight loss. HISTORY OF PRESENT ILLNESS: This has been obtained from the patient with a medical csr, although history is limited due to some dementia. The majority of the history has been obtained from the patient's daughter, Melina, who is his healthcare proxy, and from the medical record. Patient is an 84-year-old male who apparently has been having trouble with urinary tract infections, for which he has been on frequent antibiotics at home. This has caused frequent episodes of diarrhea. During this time, he has lost about 10 pounds. However, he has been eating well and comfortably according to his daughter. There has been no vomiting, obvious signs of dysphagia, nor any particular significant abdominal pain. The patient describes that he has intermittent left upper quadrant pain, but not on a daily basis. He denies any other abdominal pains. He has not noticed any hematochezia nor melena. As far as he and his daughter can recall, he has not had any definitive history of a colonoscopy. There is no known family history of colon cancer. The patient has lost about 10 pounds at home over at least the past couple of months. Again, this is despite having a good appetite and good oral intake. Aside from the left upper quadrant discomfort at times, there is no other significant abdominal pain occurring according to the patient and his daughter. MEDICATIONS: At home include acetaminophen, Eliquis, atorvastatin, vitamin D, vitamin B12, Jardiance, gabapentin, lisinopril, tamsulosin, trazodone. Medications here in the hospital include acetaminophen, atorvastatin, IV ceftriaxone, vitamin D, vitamin B12, gabapentin, subcu heparin, insulin, melatonin, lisinopril, metoprolol, Zofran p.r.n., tamsulosin, and trazodone. PAST MEDICAL HISTORY: Cholecystectomy. Reported ulcer surgery involving his stomach according to the patient. This was done many years ago and details are not available. He has a history of hyperlipidemia. Thoracic aortic aneurysm. Peripheral vascular disease. Hypertension. Hyperlipidemia. Diabetes mellitus. Cataracts. Appendectomy. Pyloroplasty and vagotomy listed in the medical record. SOCIAL HISTORY: He lives with his daughter. He currently does not smoke nor use any significant amounts of alcohol. FAMILY HISTORY: Negative for GI malignancy. PHYSICAL EXAMINATION: GENERAL: The patient is a pleasant, alert, cooperative male. SKIN: Warm and dry. HEENT: Anicteric sclerae. Moist mucous membranes. CARDIAC: Normal S1, S2. ABDOMEN: Soft, nondistended, nontender without palpable mass. LABORATORY DATA: White blood cell count 7.4, hemoglobin 11.0, platelets 178,000. Normal LFTs except for an alkaline phosphatase of 164. Albumin 3.9. Lipase 14. Normal electrolytes with a BUN of 19, creatinine 1.1. He did have a CT scan of his abdomen and pelvis describing a normal-appearing liver, biliary tract, spleen, and pancreas other than a 2 cm cystic lesion in the pancreatic head, which appeared to be slightly larger than a previous scan, where it was 1.5 cm. Kidneys appeared normal other than some benign-appearing cysts. There was no intraabdominal lymphadenopathy. The CT scan describes some questionable focal wall thickening of the hepatic flexure, raising suspicion of a mass. IMPRESSION: The patient is an elderly male, presenting with ongoing issues with diarrhea and urinary tract infections, for which he is now admitted to rule out urosepsis and to be treated with antibiotics. His CT scan has raised a suspicion of a neoplasm at the level of the hepatic flexure. He has not had a colonoscopy at all, or if he has had 1 would have been done many years ago. Based on all this, I would recommend an eventual colonoscopy once his urinary tract infection has been treated. At this point, given the significant findings on the CT scan, his age, some dementia, and the ongoing issues with the possible urosepsis, I would recommend the colonoscopy to be done as an inpatient once things have stabilized so as to allow the most expeditious workup of that potential problem. Full consent has been obtained from the patient's daughter, Melina, including risks of bleeding and perforation. I did advise her that the procedure will be done with monitored anesthesia care and she will need to give consent on the day of the procedure to either myself or Dr. Martinez, who might be doing the procedure, as well as the anesthesiologist. Given his ongoing diarrhea, it would also be important to exclude any type of inflammatory bowel disease or other type of colitis. Stool specimen has been ordered for Clostridium difficile as well. Due to his presentation and need for stabilization with antibiotics and fluids, the procedure most likely will not be done until December 25 due to the 3-day weekend. Orders will be placed prior to that. Please contact me over the next few days, if he is having any problems or questions, I can be of assistance with. This has all been discussed in detail with the patient's daughter, who is comfortable with the plan. Thank you for the consultation. MD SHAY Cristina/MIRI / [phone]
[2024-12-21 06:19] LABS: Anion Gap 10 (12-20); Blood Urea Nitrogen 14 mg/dL (9-16); Calcium 8.4 mg/dL (8.4-10.2); Carbon Dioxide 25 mmol/L (22-29); Chloride 110 mmol/L (96-108); Creatinine Clr Calc Pharmacy 65.5; Estimated Glomerular Filt Rate > 60; Magnesium 1.9 mg/dL (1.6-2.6); Potassium 3.7 mmol/L (3.3-5.1); Sodium 141 mmol/L (135-145)
[2024-12-21 06:45] LABS: Hematocrit 33.2 % (42.0-52.0); Hemoglobin 10.5 g/dl (14.0-18.0); Mean Corpuscular HGB Conc 31.6 g/dl (31.0-36.0); Mean Corpuscular Hemoglobin 29.6 pg (27.0-33.0); Mean Corpuscular Volume 93.5 fL (80.0-98.0); NRBC Abs Auto 0.000 X10*3/uL (0.0-0.012); NRBC Pct Auto 0.0 /100WBC (0.0-0.2); Platelet Count 198 X10*3/uL (160-400); Red Blood Count 3.55 X10*6/uL (4.60-5.80); White Blood Count 5.2 X10*3/uL (4.8-10.8)
[2024-12-21 07:02] LABS: INTERNATIONAL NORM RATIO 1.4 (0.9-1.1); Prothrombin Time 15.5 SEC (10.9-12.4)
[2024-12-21 07:12] VITALS: BP 166/68; PULSE 68; RESP 16; TEMP 36.6; O2SAT 94
[2024-12-21 07:24] LABS: Glucose, Whole Blood 120 mg/dL (60-115)
[2024-12-21] MEDS: 0.9 % Sodium Chloride Flush 3 ML SYRINGE IVFLUSH ×2 (07:40→20:09)
--- NOTE | 2024-12-21 09:20 | P.PNIM_ITS ---
Subjective Subjective Date of Service: 12/21/24 Interval History: not feeling well Physical Exam 2 Exam: Exam: General: AO X 3, frail, tired Resp: CTA bilateral, no accessory muscles used CVS: S1,S2,RRR GI: soft, non tender, non distended Neuro: motor grossly weak, alert Psych: appropriate affect, appropriate insight Vital Signs: Vital Signs: Last Vital Signs Temp 97.8 F 12/21/24 07:12 Pulse 68 12/21/24 07:12 Resp 16 12/21/24 07:12 BP 166/68 H 12/21/24 07:12 Pulse Ox 94 12/21/24 07:12 O2 Del Method Room Air 12/21/24 07:12 BMI result Body Mass Index 23.3 Objective Data Active Medications Acetaminophen (Acetaminophen 325 Mg Tablet) 650 mg PO Q6H PRN PRN Reason: Pain, Mild 1-3,fever,headache Last Admin: 12/20/24 12:58 Dose: 650 mg Documented By: MADIHA Comments: OK to give per Dr. Escalera Atorvastatin Calcium (Atorvastatin Calcium 80 Mg Tablet) 80 mg PO BEDTIME [facility] Last Admin: 12/20/24 20:31 Dose: 80 mg Documented By: ISABELA Calcium Carbonate (Calcium Carbonate 750 Mg Tab.Chew) 750 mg PO Q4H PRN PRN Reason: Heartburn Ceftriaxone Sodium (Ceftriaxone Sodium 1 Gm Vial) 1 gm IVPUSH Q24H [facility] Last Admin: 12/20/24 19:35 Dose: 1 gm Documented By: ISABELA Cyanocobalamin (Cyanocobalamin (Vitamin B-12) 500 Mcg Tablet) 500 mcg PO DAILY [facility] Last Admin: 12/21/24 07:39 Dose: 500 mcg Documented By: RADHA Dextrose (Dextrose 50 % 25 Gm/50 Ml Syringe) 25 gm IVPUSH Q15M PRN; Protocol PRN Reason: per Hypoglycemia Standing Ord. Gabapentin (Gabapentin 100 Mg Capsule) 100 mg PO BID [facility] Last Admin: 12/21/24 07:39 Dose: 100 mg Documented By: RADHA Glucose (Glucose Gel 15 Gm Gel..Gram.) 15 gm PO Q15M PRN; Protocol PRN Reason: per Hypoglycemia Standing Ord. Heparin Sodium (Porcine) (Heparin Sodium,Porcine 5,000 Unit/Ml Vial) 5,000 unit SUBCUT Q12H [facility] Last Admin: 12/21/24 07:42 Dose: 5,000 unit Documented By: RADHA Insulin Human Lispro (Insulin Lispro 100 Unit/Ml 3 Ml Vial) 0 unit SUBCUT QIDACHS [facility]; Protocol Last Admin: 12/21/24 07:28 Dose: Not Given Documented By: RADHA Non-Admin Reason: No Insulin Coverage Lisinopril (Lisinopril 5 Mg Tablet) 5 mg PO BEDTIME [facility]; Protocol Last Admin: 12/20/24 20:31 Dose: 5 mg Documented By: ISABELA Magnesium Hydroxide (Milk Of Magnesia 30 Ml Oral.Susp) 30 ml PO DAILY PRN PRN Reason: Constipation Melatonin (Melatonin 3 Mg Tablet) 6 mg PO BEDTIME PRN PRN Reason: Insomnia Metoprolol Tartrate (Metoprolol Tartrate 25 Mg Tablet) 25 mg PO TID [facility]; Protocol Last Admin: 12/21/24 07:39 Dose: 25 mg Documented By: RADHA Sodium Chloride (0.9 % Sodium Chloride Flush 3 Ml Syringe) 3 ml IVFLUSH QSHIFT [facility] Last Admin: 12/21/24 07:40 Dose: 3 ml Documented By: RADHA Tamsulosin HCl (Tamsulosin Hcl 0.4 Mg Capsule) 0.8 mg PO DAILY [facility] Last Admin: 12/21/24 07:39 Dose: 0.8 mg Documented By: RADHA Trazodone HCl (Trazodone Hcl 50 Mg Tablet) 50 mg PO BEDTIME [facility] Last Admin: 12/20/24 20:31 Dose: 50 mg Documented By: ISABELA Vitamin D (Cholecalciferol (Vitamin D3) 25 Mcg Tablet) 50 mcg PO DAILY [facility] Last Admin: 12/21/24 07:39 Dose: 50 mcg Documented By: RADHA Labs 12/21/24 05:27 12/21/24 05:27 Labs: Laboratory Results - last 24 hr 12/20/24 12/20/24 12/20/24 12:56 13:59 16:19 MCV MCH MCHC RDW Plt Count MPV Absolute Nucleated RBC Nucleated RBC % (auto) PT INR Anion Gap Estim Creat Clear Calc Estimated GFR POC Glucose 205 H 214 H 172 H Random Glucose Calcium Magnesium 12/20/24 12/21/24 12/21/24 20:42 05:27 07:15 MCV 93.5 MCH 29.6 MCHC 31.6 RDW 13.6 Plt Count 198 MPV 12.1 Absolute Nucleated RBC 0.000 Nucleated RBC % (auto) 0.0 PT 15.5 H INR 1.4 H Anion Gap 10 L Estim Creat Clear Calc 65.5 Estimated GFR > 60 POC Glucose 186 H 120 H Random Glucose 121 H Calcium 8.4 Magnesium 1.9 Microbiology Microbiology Results: Microbiology 12/19/24 14:57 Blood Culture - Preliminary Blood - Venous No growth after 24 hours. 12/19/24 14:41 Blood Culture - Preliminary Blood - Venous No growth after 24 hours. 12/19/24 Unknown Urine Culture - Preliminary Urine clean catch - Clean Catch Midstream Culture in progress. Assessment and Plan (1) Type 2 diabetes mellitus with unspecified complications: Status: Acute Plan 84M PMH recurrent UTI, dementia, paroxysmal AFib on Eliquis, hypertension, GERD, depression, diabetes presented with altered mental status and weakness found to have urinary tract infection and suspicious colonic mass Acute metabolic encephalopathy due to urinary tract infection Continue ceftriaxone, follow up cultures Possible colonic mass GI appreciated, holding eliquis, plan for scope on tuesdaydec 25 Diarrhea Check stool studies Paroxysmal AFib with RVR Holding Eliquis for scope Lopressor 25mg tid added - hr improved DVT prophylaxis-heparin subQ Full code reason for continued hospitalization:cultures Quality Stroke Does the patient have a stroke diagnosis?: No VTE Prior VTE?: No VTE Risk Level:: Medical - moderate - high VTE Device Contraindication: Treatment Not Indicated VTE Drug Contraindication: N/A - Med Ordered
[2024-12-21 11:42] LABS: Glucose, Whole Blood 179 mg/dL (60-115)
--- NOTE | 2024-12-21 11:57 | MHC.CM.PN ---
per rounds pt remains acute loc and is not expected to dc over the w./e
[2024-12-21 15:14] VITALS: BP 164/77; PULSE 65; RESP 14; TEMP 36.7; O2SAT 97
[2024-12-21 16:17] LABS: Glucose, Whole Blood 139 mg/dL (60-115)
--- NOTE | 2024-12-21 16:51 | W.PM.IDCN ---
History of Present Illness Data of Consult Service Date: 12/21/24 Requesting physician: Ray Escalera Primary Care Provider: Unknown Physician HPI Reason for consult: encephalopathy He presents with vomiting and diarrhea last three days. He has been on antibiotic for UTI He has gram negative rods in urine. Review of Systems Review of Systems: Yes Unobtainable due to mental condition PMFSH Past Medical History Medical History Dyslipidemia Thoracic aneurysm without mention of rupture Confusion Leukocytosis Infarction of right basal ganglia Peripheral vascular disease Hyperlipidemia Essential hypertension Type 2 diabetes mellitus with unspecified complications Hx of cataract Family History Family History Father Throat cancer Mother Medical history unknown Brother No problems noted. Family history: reviewed and not pertinent Surgical History Surgical History S/P cardiac cath (~12/2019) History of cataract surgery Hx of appendectomy Hx of cholecystectomy Hx of pyloroplasty Hx of vagotomy Social History Social History Household Members: Foster Family Housing: House Do you presently have visiting nurse or other home services: Yes Alcohol intake: never Patient Tobacco Use Status: Never used Tobacco Advance Directives Date on File: 12/05/24 service: No Meds Allergies Allergy/AdvReac Type Severity Reaction Status Date / Time penicillin V Allergy Unknown Rash & Verified 12/19/24 13:32 Dizziness, rash and dizziness Active Medications: Current Medications Acetaminophen (Acetaminophen 325 Mg Tablet) 650 mg PO Q6H PRN PRN Reason: Pain, Mild 1-3,fever,headache Last Admin: 12/20/24 12:58 Dose: 650 mg Atorvastatin Calcium (Atorvastatin Calcium 80 Mg Tablet) 80 mg PO BEDTIME [facility] Last Admin: 12/20/24 20:31 Dose: 80 mg Calcium Carbonate (Calcium Carbonate 750 Mg Tab.Chew) 750 mg PO Q4H PRN PRN Reason: Heartburn Ceftriaxone Sodium (Ceftriaxone Sodium 1 Gm Vial) 1 gm IVPUSH Q24H [facility] Last Admin: 12/20/24 19:35 Dose: 1 gm Cyanocobalamin (Cyanocobalamin (Vitamin B-12) 500 Mcg Tablet) 500 mcg PO DAILY [facility] Last Admin: 12/21/24 07:39 Dose: 500 mcg Dextrose (Dextrose 50 % 25 Gm/50 Ml Syringe) 25 gm IVPUSH Q15M PRN; Protocol PRN Reason: per Hypoglycemia Standing Ord. Gabapentin (Gabapentin 100 Mg Capsule) 100 mg PO BID [facility] Last Admin: 12/21/24 07:39 Dose: 100 mg Glucose (Glucose Gel 15 Gm Gel..Gram.) 15 gm PO Q15M PRN; Protocol PRN Reason: per Hypoglycemia Standing Ord. Heparin Sodium (Porcine) (Heparin Sodium,Porcine 5,000 Unit/Ml Vial) 5,000 unit SUBCUT Q12H [facility] Last Admin: 12/21/24 07:42 Dose: 5,000 unit Insulin Human Lispro (Insulin Lispro 100 Unit/Ml 3 Ml Vial) 0 unit SUBCUT QIDACHS [facility]; Protocol Last Admin: 12/21/24 16:29 Dose: Not Given Lisinopril (Lisinopril 5 Mg Tablet) 5 mg PO BEDTIME [facility]; Protocol Last Admin: 12/20/24 20:31 Dose: 5 mg Magnesium Hydroxide (Milk Of Magnesia 30 Ml Oral.Susp) 30 ml PO DAILY PRN PRN Reason: Constipation Melatonin (Melatonin 3 Mg Tablet) 6 mg PO BEDTIME PRN PRN Reason: Insomnia Metoprolol Tartrate (Metoprolol Tartrate 25 Mg Tablet) 25 mg PO TID [facility]; Protocol Last Admin: 12/21/24 14:21 Dose: 25 mg Sodium Chloride (0.9 % Sodium Chloride Flush 3 Ml Syringe) 3 ml IVFLUSH QSHIFT [facility] Last Admin: 12/21/24 15:18 Dose: Not Given Tamsulosin HCl (Tamsulosin Hcl 0.4 Mg Capsule) 0.8 mg PO DAILY [facility] Last Admin: 12/21/24 07:39 Dose: 0.8 mg Trazodone HCl (Trazodone Hcl 50 Mg Tablet) 50 mg PO BEDTIME [facility] Last Admin: 12/20/24 20:31 Dose: 50 mg Vitamin D (Cholecalciferol (Vitamin D3) 25 Mcg Tablet) 50 mcg PO DAILY [facility] Last Admin: 12/21/24 07:39 Dose: 50 mcg Home Medications ?Medication ?Instructions ?Recorded ?Confirmed ?Last Taken ?Type tamsulosin 0.4 mg capsule 0.8 mg PO DAILY 12/10/19 12/19/2412/19/25 History acetaminophen 325 mg tablet 650 mg PO BID PRN Fever Or Pain 12/05/24 12/19/24 Unknown History apixaban 5 mg tablet (Eliquis) 5 mg PO BID 12/05/24 12/19/24 12/19/24 History atorvastatin 80 mg tablet 80 mg PO BEDTIME 12/05/24 12/19/24 12/18/24 History cholecalciferol (vitamin D3) 50 50 mcg PO DAILY 12/05/24 12/19/24 12/19/24 History mcg (2,000 unit) capsule (Vitamin D3) cyanocobalamin (vitamin B-12) 500 500 mcg PO DAILY 12/05/24 12/19/24 12/19/24 History mcg tablet (Vitamin B-12) empagliflozin 10 mg tablet 10 mg PO DAILY 12/05/24 12/19/24 12/19/24 History (Jardiance) gabapentin 100 mg capsule 100 mg PO BID 12/05/24 12/19/24 12/19/24 History lisinopril 5 mg tablet 5 mg PO BEDTIME 12/05/24 12/19/24 12/18/24 History trazodone 50 mg tablet 50 mg PO BEDTIME 12/05/24 12/19/24 12/18/24 History Physical Exam Vital Signs: Vital Signs: Last Vital Signs Temp 98.0 F 12/21/24 15:14 Pulse 65 12/21/24 15:14 Resp 14 12/21/24 15:14 BP 164/77 H 12/21/24 15:14 Pulse Ox 97 12/21/24 15:14 O2 Del Method Room Air 12/21/24 15:14 BMI result Body Mass Index 23.3 Const: General: cooperative HEENT: Head: Yes normal to inspection Face and sinus: Yes normal facial exam Mouth: Normal oral and palatal mucosa present Teeth and gingiva: dentition normal Eyes: General: appearance normal, both eyes and all related structures Pupils: Equal, round and reactive pupils present Resp: Effort & Inspection: normal respiratory effort Cardio: Rate: regular rate Rhythm: regular rhythm GI: Palpation (GI): Soft to palpation and nontender : General: Yes no CVA tenderness Back/Spine/Pelvis: Back: no CVA tenderness Skin: General skin exam: no rashes or lesions noted Neuro: General: moves all extremities Cranial nerves: Yes Equal, round and reactive pupils present Extrem: General: Yes normal to inspection Psych: Other: confused Results Labs 12/21/24 05:27 12/21/24 05:27 Labs: Short CBC 12/21/24 Range/Units 05:27 WBC 5.2 (4.8-10.8) X10*3/uL Hgb 10.5 L (14.0-18.0) g/dl Hct 33.2 L (42.0-52.0) % Plt Count 198 (160-400) X10*3/uL BMP 12/21/24 05:27 Sodium 141 Potassium 3.7 Chloride 110 H Carbon Dioxide 25 BUN 14 Creatinine 0.91 Calcium 8.4 Microbiology Microbiology Results: Microbiology 12/19/24 14:41 Blood - Venous Blood Culture - Preliminary No growth after 48 hours. 12/19/24 Unknown Urine clean catch - Clean Catch Midstream Urine Culture - Preliminary Gram negative chance 12/19/24 14:57 Blood - Venous Blood Culture - Preliminary No growth after 24 hours. Assessment and Plan (1) Acute UTI: Status: Acute (2) Leukocytosis: Qualifiers: Leukocytosis type: unspecified Qualified Code(s): D72.829 - Elevated white blood cell count, unspecified Status: Acute Plan Cause of his encephalopathy more than likely symptomatic UTI. He doesnt have leukocytosis Would still continue Ceftriaxone Await final culture urine,gram negative.
[2024-12-21 17:49] LABS: CDiff Gene PCR NEGATIVE (Negative)
[2024-12-21 19:22] VITALS: BP 148/63; PULSE 87; RESP 18; TEMP 36.4; O2SAT 96
[2024-12-21 20:07] LABS: Glucose, Whole Blood 234 mg/dL (60-115)
[2024-12-22 03:48] VITALS: BP 152/75; PULSE 51; RESP 18; TEMP 36.3; O2SAT 95
[2024-12-22 06:35] LABS: Hematocrit 37.4 % (42.0-52.0); Hemoglobin 12.3 g/dl (14.0-18.0); Mean Corpuscular HGB Conc 32.9 g/dl (31.0-36.0); Mean Corpuscular Hemoglobin 30.0 pg (27.0-33.0); Mean Corpuscular Volume 91.2 fL (80.0-98.0); NRBC Abs Auto 0.000 X10*3/uL (0.0-0.012); NRBC Pct Auto 0.0 /100WBC (0.0-0.2); Platelet Count 215 X10*3/uL (160-400); Red Blood Count 4.10 X10*6/uL (4.60-5.80); White Blood Count 6.2 X10*3/uL (4.8-10.8)
[2024-12-22 06:45] VITALS: BP 150/74; PULSE 91; RESP 17; TEMP 36.6; O2SAT 97
[2024-12-22 06:56] LABS: Anion Gap 12 (12-20); Blood Urea Nitrogen 19 mg/dL (9-16); Calcium 8.5 mg/dL (8.4-10.2); Carbon Dioxide 27 mmol/L (22-29); Chloride 107 mmol/L (96-108); Creatinine Clr Calc Pharmacy 71.8; Estimated Glomerular Filt Rate > 60; Potassium 3.8 mmol/L (3.3-5.1); Sodium 142 mmol/L (135-145)
[2024-12-22 07:14] LABS: Glucose, Whole Blood 152 mg/dL (60-115)
[2024-12-22] MEDS: 0.9 % Sodium Chloride Flush 3 ML SYRINGE IVFLUSH ×3 (08:02→20:34)
--- NOTE | 2024-12-22 09:04 | P.PNIM_ITS ---
Subjective Subjective Date of Service: 12/22/24 Interval History: not feeling well Physical Exam 2 Vital Signs: Vital Signs: Last Vital Signs Temp 98 F 12/22/24 06:45 Pulse 91 12/22/24 06:45 Resp 17 12/22/24 06:45 BP 150/74 H 12/22/24 06:45 Pulse Ox 97 12/22/24 06:45 O2 Del Method Room Air 12/22/24 06:45 BMI result Body Mass Index 23.3 Const: General: cooperative HEENT: Head: Yes normal to inspection Face and sinus: Yes normal facial exam Mouth: Normal oral and palatal mucosa present Teeth and gingiva: d entition normal Eyes: General: appearance normal, both eyes and all related structures P upils: Equal, round and reactive pupils present Resp: Effort & Inspection: normal respiratory effort Cardio: Rate: regular rate Rhythm: regular rhythm GI: Palpation (GI): Soft to palpation and nontender : General: Yes no CVA tenderness Back/Spine/Pelvis: Back: no CVA tenderness Skin: General skin exam: no rashes or lesions noted Neuro: General: moves all extremities Cranial nerves: Yes Equal, round and reactive pupils present Extrem: General: Yes normal to inspection Psych: Other: confused Objective Data Active Medications Acetaminophen (Acetaminophen 325 Mg Tablet) 650 mg PO Q6H PRN PRN Reason: Pain, Mild 1-3,fever,headache Last Admin: 12/20/24 12:58 Dose: 650 mg Documented By: MADIHA Comments: OK to give per Dr. Escalera Atorvastatin Calcium (Atorvastatin Calcium 80 Mg Tablet) 80 mg PO BEDTIME [facility] Last Admin: 12/21/24 20:08 Dose: 80 mg Documented By: DAVID Calcium Carbonate (Calcium Carbonate 750 Mg Tab.Chew) 750 mg PO Q4H PRN PRN Reason: Heartburn Ceftriaxone Sodium (Ceftriaxone Sodium 1 Gm Vial) 1 gm IVPUSH Q24H [facility] Last Admin: 12/21/24 20:08 Dose: 1 gm Documented By: DAVID Cyanocobalamin (Cyanocobalamin (Vitamin B-12) 500 Mcg Tablet) 500 mcg PO DAILY [facility] Last Admin: 12/22/24 08:01 Dose: 500 mcg Documented By: ROSALINDA Dextrose (Dextrose 50 % 25 Gm/50 Ml Syringe) 25 gm IVPUSH Q15M PRN; Protocol PRN Reason: per Hypoglycemia Standing Ord. Gabapentin (Gabapentin 100 Mg Capsule) 100 mg PO BID [facility] Last Admin: 12/22/24 08:01 Dose: 100 mg Documented By: ROSALINDA Glucose (Glucose Gel 15 Gm Gel..Gram.) 15 gm PO Q15M PRN; Protocol PRN Reason: per Hypoglycemia Standing Ord. Heparin Sodium (Porcine) (Heparin Sodium,Porcine 5,000 Unit/Ml Vial) 5,000 unit SUBCUT Q12H [facility] Last Admin: 12/21/24 21:45 Dose: 5,000 unit Documented By: DAVID Insulin Human Lispro (Insulin Lispro 100 Unit/Ml 3 Ml Vial) 0 unit SUBCUT QIDACHS [facility]; Protocol Last Admin: 12/22/24 08:00 Dose: 2 unit Documented By: ROSALINDA Lisinopril (Lisinopril 5 Mg Tablet) 5 mg PO BEDTIME [facility]; Protocol Last Admin: 12/21/24 20:08 Dose: 5 mg Documented By: DAVID Magnesium Hydroxide (Milk Of Magnesia 30 Ml Oral.Susp) 30 ml PO DAILY PRN PRN Reason: Constipation Melatonin (Melatonin 3 Mg Tablet) 6 mg PO BEDTIME PRN PRN Reason: Insomnia Metoprolol Tartrate (Metoprolol Tartrate 25 Mg Tablet) 25 mg PO TID [facility]; Protocol Last Admin: 12/22/24 08:01 Dose: 25 mg Documented By: ROSALINDA Sodium Chloride (0.9 % Sodium Chloride Flush 3 Ml Syringe) 3 ml IVFLUSH QSHIFT [facility] Last Admin: 12/22/24 08:02 Dose: 3 ml Documented By: ROSALINDA Tamsulosin HCl (Tamsulosin Hcl 0.4 Mg Capsule) 0.8 mg PO DAILY [facility] Last Admin: 12/22/24 08:01 Dose: 0.8 mg Documented By: ROSALINDA Trazodone HCl (Trazodone Hcl 50 Mg Tablet) 50 mg PO BEDTIME [facility] Last Admin: 12/21/24 20:09 Dose: 50 mg Documented By: DAVID Vitamin D (Cholecalciferol (Vitamin D3) 25 Mcg Tablet) 50 mcg PO DAILY [facility] Last Admin: 12/22/24 08:02 Dose: 50 mcg Documented By: ROSALINDA Labs 12/22/24 05:45 12/22/24 05:45 Labs: Laboratory Results - last 24 hr 12/21/24 12/21/24 12/21/24 11:38 16:12 16:22 MCV MCH MCHC RDW Plt Count MPV Absolute Nucleated RBC Nucleated RBC % (auto) Anion Gap Estim Creat Clear Calc Estimated GFR POC Glucose 179 H 139 H Random Glucose Calcium C. difficile Tox B Gene NEGATIVE 12/21/24 12/22/24 12/22/24 20:03 05:45 07:08 MCV 91.2 MCH 30.0 MCHC 32.9 RDW 13.6 Plt Count 215 MPV 11.9 Absolute Nucleated RBC 0.000 Nucleated RBC % (auto) 0.0 Anion Gap 12 Estim Creat Clear Calc 71.8 Estimated GFR > 60 POC Glucose 234 H 152 H Random Glucose 128 H Calcium 8.5 C. difficile Tox B Gene Microbiology Microbiology Results: Microbiology 12/19/24 Unknown Urine Culture - Final Urine clean catch - Clean Catch Midstream Serratia marcescens 12/19/24 14:57 Blood Culture - Preliminary Blood - Venous No growth after 48 hours. 12/19/24 14:41 Blood Culture - Preliminary Blood - Venous No growth after 48 hours. Assessment and Plan (1) Type 2 diabetes mellitus with unspecified complications: Status: Acute Plan 84M PMH recurrent UTI, dementia, paroxysmal AFib on Eliquis, hypertension, GERD, depression, diabetes presented with altered mental status and weakness found to have urinary tract infection and suspicious colonic mass Acute metabolic encephalopathy due to urinary tract infection Continue ceftriaxone, urine culture growing serratia Possible colonic mass GI appreciated, holding eliquis, plan for scope on tuesdaydec 25 Diarrhea negative stool studies Paroxysmal AFib with RVR Holding Eliquis for scope Lopressor 25mg tid added - hr improved DVT prophylaxis-heparin subQ Full code reason for continued hospitalization:plan for scope Quality Stroke Does the patient have a stroke diagnosis?: No VTE Prior VTE?: No VTE Risk Level:: Medical - moderate - high VTE Device Contraindication: Treatment Not Indicated VTE Drug Contraindication: N/A - Med Ordered
[2024-12-22 11:13] LABS: Glucose, Whole Blood 204 mg/dL (60-115)
[2024-12-22 15:10] VITALS: BP 108/55; PULSE 56; RESP 16; TEMP 36.2; O2SAT 100
[2024-12-22 16:15] LABS: Glucose, Whole Blood 218 mg/dL (60-115)
[2024-12-22 19:58] VITALS: BP 119/57; PULSE 52; RESP 18; TEMP 36.2; O2SAT 97
[2024-12-22 20:19] LABS: Glucose, Whole Blood 206 mg/dL (60-115)
[2024-12-23 03:20] VITALS: BP 148/62; PULSE 67; RESP 18; TEMP 36.2; O2SAT 93
[2024-12-23 06:29] LABS: Hematocrit 37.0 % (42.0-52.0); Hemoglobin 11.9 g/dl (14.0-18.0); Mean Corpuscular HGB Conc 32.2 g/dl (31.0-36.0); Mean Corpuscular Hemoglobin 30.0 pg (27.0-33.0); Mean Corpuscular Volume 93.2 fL (80.0-98.0); NRBC Abs Auto 0.000 X10*3/uL (0.0-0.012); NRBC Pct Auto 0.0 /100WBC (0.0-0.2); Platelet Count 220 X10*3/uL (160-400); Red Blood Count 3.97 X10*6/uL (4.60-5.80); White Blood Count 5.9 X10*3/uL (4.8-10.8)
[2024-12-23 06:47] LABS: Alanine Aminotransferase 15 U/L (0-40); Albumin Level 3.4 g/dL (3.5-5.0); Alkaline Phosphatase 139 U/L (39-117); Anion Gap 13 (12-20); Aspartate Amino Transferase 24 U/L (5-37); Blood Urea Nitrogen 24 mg/dL (9-16); Calcium 8.5 mg/dL (8.4-10.2); Carbon Dioxide 26 mmol/L (22-29); Chloride 107 mmol/L (96-108); Creatinine Clr Calc Pharmacy 56.7; Estimated Glomerular Filt Rate > 60; Magnesium 2.0 mg/dL (1.6-2.6); Potassium 3.8 mmol/L (3.3-5.1); Sodium 142 mmol/L (135-145); Total Protein 6.0 g/dL (6.5-8.0)
[2024-12-23 07:35] VITALS: BP 168/82; PULSE 61; RESP 18; TEMP 36.6; O2SAT 98
[2024-12-23 07:54] LABS: Glucose, Whole Blood 171 mg/dL (60-115)
[2024-12-23 08:02] VITALS: PULSE 79
[2024-12-23] MEDS: 0.9 % Sodium Chloride Flush 3 ML SYRINGE IVFLUSH ×3 (08:07→20:06)
--- NOTE | 2024-12-23 08:29 | P.PNIM_ITS ---
Subjective Subjective Date of Service: 12/23/24 Interval History: not feeling well Physical Exam 2 Vital Signs: Vital Signs: Last Vital Signs Temp 97.9 F 12/23/24 07:35 Pulse 79 12/23/24 08:02 Resp 18 12/23/24 07:35 BP 168/82 H 12/23/24 07:35 Pulse Ox 98 12/23/24 07:35 O2 Del Method Room Air 12/23/24 07:35 BMI result Body Mass Index 23.3 Const: General: cooperative HEENT: Head: Yes normal to inspection Face and sinus: Yes normal facial exam Mouth: Normal oral and palatal mucosa present Teeth and gingiva: d entition normal Eyes: General: appearance normal, both eyes and all related structures P upils: Equal, round and reactive pupils present Resp: Effort & Inspection: normal respiratory effort Cardio: Rate: regular rate Rhythm: regular rhythm GI: Palpation (GI): Soft to palpation and nontender : General: Yes no CVA tenderness Back/Spine/Pelvis: Back: no CVA tenderness Skin: General skin exam: no rashes or lesions noted Neuro: General: moves all extremities Cranial nerves: Yes Equal, round and reactive pupils present Extrem: General: Yes normal to inspection Psych: Other: confused Objective Data Active Medications Acetaminophen (Acetaminophen 325 Mg Tablet) 650 mg PO Q6H PRN PRN Reason: Pain, Mild 1-3,fever,headache Last Admin: 12/20/24 12:58 Dose: 650 mg Documented By: MADIHA Comments: OK to give per Dr. Escalera Atorvastatin Calcium (Atorvastatin Calcium 80 Mg Tablet) 80 mg PO BEDTIME [facility] Last Admin: 12/22/24 20:34 Dose: 80 mg Documented By: DAVID Calcium Carbonate (Calcium Carbonate 750 Mg Tab.Chew) 750 mg PO Q4H PRN PRN Reason: Heartburn Ceftriaxone Sodium (Ceftriaxone Sodium 1 Gm Vial) 1 gm IVPUSH Q24H [facility] Last Admin: 12/22/24 20:34 Dose: 1 gm Documented By: DAVID Cyanocobalamin (Cyanocobalamin (Vitamin B-12) 500 Mcg Tablet) 500 mcg PO DAILY [facility] Last Admin: 12/23/24 08:02 Dose: 500 mcg Documented By: ROSALINDA Dextrose (Dextrose 50 % 25 Gm/50 Ml Syringe) 25 gm IVPUSH Q15M PRN; Protocol PRN Reason: per Hypoglycemia Standing Ord. Gabapentin (Gabapentin 100 Mg Capsule) 100 mg PO BID [facility] Last Admin: 12/23/24 08:02 Dose: 100 mg Documented By: ROSALINDA Glucose (Glucose Gel 15 Gm Gel..Gram.) 15 gm PO Q15M PRN; Protocol PRN Reason: per Hypoglycemia Standing Ord. Heparin Sodium (Porcine) (Heparin Sodium,Porcine 5,000 Unit/Ml Vial) 5,000 unit SUBCUT Q12H [facility] Last Admin: 12/22/24 21:36 Dose: 5,000 unit Documented By: DAVID Insulin Human Lispro (Insulin Lispro 100 Unit/Ml 3 Ml Vial) 0 unit SUBCUT QIDACHS [facility]; Protocol Last Admin: 12/23/24 08:01 Dose: 2 unit Documented By: ROSALINDA Lisinopril (Lisinopril 5 Mg Tablet) 5 mg PO BEDTIME [facility]; Protocol Last Admin: 12/22/24 20:33 Dose: 5 mg Documented By: DAVID Magnesium Hydroxide (Milk Of Magnesia 30 Ml Oral.Susp) 30 ml PO DAILY PRN PRN Reason: Constipation Melatonin (Melatonin 3 Mg Tablet) 6 mg PO BEDTIME PRN PRN Reason: Insomnia Metoprolol Tartrate (Metoprolol Tartrate 25 Mg Tablet) 25 mg PO TID [facility]; Protocol Last Admin: 12/23/24 08:02 Dose: 25 mg Documented By: ROSALINDA Sodium Chloride (0.9 % Sodium Chloride Flush 3 Ml Syringe) 3 ml IVFLUSH QSHIFT [facility] Last Admin: 12/23/24 08:07 Dose: 3 ml Documented By: ROSALINDA Tamsulosin HCl (Tamsulosin Hcl 0.4 Mg Capsule) 0.8 mg PO DAILY [facility] Last Admin: 12/23/24 08:02 Dose: 0.8 mg Documented By: ROSALINDA Trazodone HCl (Trazodone Hcl 50 Mg Tablet) 50 mg PO BEDTIME [facility] Last Admin: 12/22/24 20:33 Dose: 50 mg Documented By: DAVID Vitamin D (Cholecalciferol (Vitamin D3) 25 Mcg Tablet) 50 mcg PO DAILY [facility] Last Admin: 12/23/24 08:02 Dose: 50 mcg Documented By: ROSALINDA Labs 12/23/24 05:58 12/23/24 05:58 Labs: Laboratory Results - last 24 hr 12/22/24 12/22/24 12/22/24 11:04 16:09 20:13 MCV MCH MCHC RDW Plt Count MPV Absolute Nucleated RBC Nucleated RBC % (auto) Anion Gap Estim Creat Clear Calc Estimated GFR POC Glucose 204 H 218 H 206 H Random Glucose Calcium Magnesium Total Bilirubin Direct Bilirubin AST ALT Alkaline Phosphatase Total Protein Albumin 12/23/24 12/23/24 05:58 07:41 MCV 93.2 MCH 30.0 MCHC 32.2 RDW 13.5 Plt Count 220 MPV 12.0 Absolute Nucleated RBC 0.000 Nucleated RBC % (auto) 0.0 Anion Gap 13 Estim Creat Clear Calc 56.7 Estimated GFR > 60 POC Glucose 171 H Random Glucose 186 H Calcium 8.5 Magnesium 2.0 Total Bilirubin 0.4 Direct Bilirubin 0.1 AST 24 ALT 15 Alkaline Phosphatase 139 H Total Protein 6.0 L Albumin 3.4 L Microbiology Microbiology Results: Microbiology 12/19/24 Unknown Urine Culture - Final Urine clean catch - Clean Catch Midstream Serratia marcescens Assessment and Plan (1) Type 2 diabetes mellitus with unspecified complications: Status: Acute Plan 84M PMH recurrent UTI, dementia, paroxysmal AFib on Eliquis, hypertension, GERD, depression, diabetes presented with altered mental status and weakness found to have urinary tract infection and suspicious colonic mass Acute metabolic encephalopathy due to urinary tract infection Continue ceftriaxone, urine culture growing serratia Possible colonic mass GI appreciated, holding eliquis, plan for scope on tuesdaydec 25 Diarrhea negative stool studies Paroxysmal AFib with RVR Holding Eliquis for scope Lopressor 25mg Bid added - hr improved DVT prophylaxis-heparin subQ Full code reason for continued hospitalization:plan for scope Quality Stroke Does the patient have a stroke diagnosis?: No VTE Prior VTE?: No VTE Risk Level:: Medical - moderate - high VTE Device Contraindication: Treatment Not Indicated VTE Drug Contraindication: N/A - Med Ordered
[2024-12-23 11:32] LABS: Glucose, Whole Blood 189 mg/dL (60-115)
[2024-12-23 15:26] VITALS: BP 131/58; PULSE 62; RESP 18; TEMP 36.2; O2SAT 98
[2024-12-23 16:31] LABS: Glucose, Whole Blood 174 mg/dL (60-115)
--- NOTE | 2024-12-23 17:18 | PM.EVENT ---
Event Note Date of Service: 12/23/24 Event Note: GI---Course noted--Orders placed for planned colonoscopy on , 12/25/24. I stopped his SQ Heparin. Please advise if any questions or issues. Thanks Time Spent With Patient Time: Total time managing care of this patient today ____ minutes.
[2024-12-23 20:00] VITALS: BP 118/60; PULSE 80; RESP 18; TEMP 36.2; O2SAT 96
[2024-12-23 20:16] LABS: Glucose, Whole Blood 217 mg/dL (60-115)
[2024-12-24 03:20] VITALS: BP 130/72; PULSE 69; RESP 14; TEMP 36; O2SAT 94
[2024-12-24 07:28] VITALS: BP 179/77; PULSE 56; RESP 18; TEMP 36.5; O2SAT 96
[2024-12-24 07:40] LABS: Glucose, Whole Blood 194 mg/dL (60-115)
[2024-12-24] MEDS: 0.9 % Sodium Chloride Flush 3 ML SYRINGE IVFLUSH ×3 (08:00→19:23)
--- NOTE | 2024-12-24 08:15 | P.PNIM_ITS ---
Subjective Subjective Date of Service: 12/24/24 Interval History: no new complaints Physical Exam 2 Vital Signs: Vital Signs: Last Vital Signs Temp 97.7 F 12/24/24 07:28 Pulse 56 12/24/24 07:28 Resp 18 12/24/24 07:28 BP 179/77 H 12/24/24 07:28 Pulse Ox 96 12/24/24 07:28 O2 Del Method Room Air 12/24/24 07:28 BMI result Body Mass Index 23.3 Const: General: cooperative HEENT: Head: Yes normal to inspection Face and sinus: Yes normal facial exam Mouth: Normal oral and palatal mucosa present Teeth and gingiva: d entition normal Eyes: General: appearance normal, both eyes and all related structures P upils: Equal, round and reactive pupils present Resp: Effort & Inspection: normal respiratory effort Cardio: Rate: regular rate Rhythm: regular rhythm GI: Palpation (GI): Soft to palpation and nontender : General: Yes no CVA tenderness Back/Spine/Pelvis: Back: no CVA tenderness Skin: General skin exam: no rashes or lesions noted Neuro: General: moves all extremities Cranial nerves: Yes Equal, round and reactive pupils present Extrem: General: Yes normal to inspection Psych: Other: confused Objective Data Active Medications Acetaminophen (Acetaminophen 325 Mg Tablet) 650 mg PO Q6H PRN PRN Reason: Pain, Mild 1-3,fever,headache Last Admin: 12/20/24 12:58 Dose: 650 mg Documented By: MADIHA Comments: OK to give per Dr. Escalera Atorvastatin Calcium (Atorvastatin Calcium 80 Mg Tablet) 80 mg PO BEDTIME [facility] Last Admin: 12/23/24 20:06 Dose: 80 mg Documented By: DAVID Bisacodyl (Bisacodyl 5 Mg Tablet.) 10 mg PO ONCE ONE Stop: 12/24/24 15:01 Bisacodyl (Bisacodyl 5 Mg Tablet.) 10 mg PO ONCE ONE Stop: 12/24/24 18:01 Calcium Carbonate (Calcium Carbonate 750 Mg Tab.Chew) 750 mg PO Q4H PRN PRN Reason: Heartburn Ceftriaxone Sodium (Ceftriaxone Sodium 1 Gm Vial) 1 gm IVPUSH Q24H [facility] Last Admin: 12/23/24 20:06 Dose: 1 gm Documented By: DAVID Cyanocobalamin (Cyanocobalamin (Vitamin B-12) 500 Mcg Tablet) 500 mcg PO DAILY [facility] Last Admin: 12/24/24 08:00 Dose: 500 mcg Documented By: ROSALINDA Dextrose (Dextrose 50 % 25 Gm/50 Ml Syringe) 25 gm IVPUSH Q15M PRN; Protocol PRN Reason: per Hypoglycemia Standing Ord. Gabapentin (Gabapentin 100 Mg Capsule) 100 mg PO BID [facility] Last Admin: 12/24/24 08:00 Dose: 100 mg Documented By: ROSALINDA Glucose (Glucose Gel 15 Gm Gel..Gram.) 15 gm PO Q15M PRN; Protocol PRN Reason: per Hypoglycemia Standing Ord. Insulin Human Lispro (Insulin Lispro 100 Unit/Ml 3 Ml Vial) 0 unit SUBCUT QIDACHS [facility]; Protocol Last Admin: 12/24/24 08:00 Dose: 2 unit Documented By: ROSALINDA Lisinopril (Lisinopril 5 Mg Tablet) 5 mg PO BEDTIME [facility]; Protocol Last Admin: 12/23/24 20:05 Dose: 5 mg Documented By: DAVID Magnesium Hydroxide (Milk Of Magnesia 30 Ml Oral.Susp) 30 ml PO DAILY PRN PRN Reason: Constipation Melatonin (Melatonin 3 Mg Tablet) 6 mg PO BEDTIME PRN PRN Reason: Insomnia Metoprolol Tartrate (Metoprolol Tartrate 25 Mg Tablet) 25 mg PO BID [facility]; Protocol Last Admin: 12/24/24 07:59 Dose: Not Given Documented By: ROSALINDA Non-Admin Reason: Decreased Heart Rate Polyethylene Glycol/Electrolytes (Peg 3350/Na Sulf,Bicarb,Cl/Kcl 4,000 Ml Soln.Recon) 4,000 ml PO ONCE ONE Stop: 12/24/24 16:01 Sodium Biphosphate/Sodium Phosphate (Sodium Phosphate,[place]-Dibasic 133 Ml Enema) 133 ml [place] ONCE PRN PRN Reason: Poor Colonoscopy Prep Results Sodium Chloride (0.9 % Sodium Chloride Flush 3 Ml Syringe) 3 ml IVFLUSH QSHIFT [facility] Last Admin: 12/24/24 08:00 Dose: 3 ml Documented By: ROSALINDA Tamsulosin HCl (Tamsulosin Hcl 0.4 Mg Capsule) 0.8 mg PO DAILY [facility] Last Admin: 12/24/24 07:59 Dose: 0.8 mg Documented By: ROSALINDA Trazodone HCl (Trazodone Hcl 50 Mg Tablet) 50 mg PO BEDTIME [facility] Last Admin: 12/23/24 20:06 Dose: 50 mg Documented By: DAVID Vitamin D (Cholecalciferol (Vitamin D3) 25 Mcg Tablet) 50 mcg PO DAILY [facility] Last Admin: 12/24/24 08:00 Dose: 50 mcg Documented By: ROSALINDA Labs 12/23/24 05:58 12/23/24 05:58 Labs: Laboratory Results - last 24 hr 12/21/24 12/23/24 12/23/24 Unknown 11:20 16:24 POC Glucose 189 H 174 H Stl C. cayetanensis PCR Cancelled Stool Rotavirus A PCR Cancelled Stl Adenov F 40/41 PCR Cancelled Stool Astrovirus (PCR) Cancelled Stool Campylobacter PCR Cancelled Stool Cryptosporidium PCR Cancelled Stl Sh Tox Pr E STEC PCR Cancelled Stool E coli O157 PCR Cancelled Stl Enterotoxigenic E PCR Cancelled Stool EPEC (PCR) Cancelled Stool EAEC (PCR) Cancelled Stl E. histolytica PCR Cancelled Stool Giardia Lamblia PCR Cancelled Stl P. shigelloides PCR Cancelled Stool Salmonella PCR Cancelled Stool Sapovirus (PCR) Cancelled Stl Shigella/EIEC PCR Cancelled St Y.enterocolitica PCR Cancelled Stool Vibrio (PCR) Cancelled Stl Vibrio cholerae PCR Cancelled Stl Norovirus GI/GII PCR Cancelled 12/23/24 12/24/24 19:31 07:29 POC Glucose 217 H 194 H Stl C. cayetanensis PCR Stool Rotavirus A PCR Stl Adenov F 40/41 PCR Stool Astrovirus (PCR) Stool Campylobacter PCR Stool Cryptosporidium PCR Stl Sh Tox Pr E STEC PCR Stool E coli O157 PCR Stl Enterotoxigenic E PCR Stool EPEC (PCR) Stool EAEC (PCR) Stl E. histolytica PCR Stool Giardia Lamblia PCR Stl P. shigelloides PCR Stool Salmonella PCR Stool Sapovirus (PCR) Stl Shigella/EIEC PCR St Y.enterocolitica PCR Stool Vibrio (PCR) Stl Vibrio cholerae PCR Stl Norovirus GI/GII PCR Assessment and Plan (1) Type 2 diabetes mellitus with unspecified complications: Status: Acute Plan 84M PMH recurrent UTI, dementia, paroxysmal AFib on Eliquis, hypertension, GERD, depression, diabetes presented with altered mental status and weakness found to have urinary tract infection and suspicious colonic mass Acute metabolic encephalopathy due to urinary tract infection Continue ceftriaxone, urine culture growing serratia Possible colonic mass GI appreciated, holding eliquis, plan for scope on tuesdaydec 25 Diarrhea negative stool studies Paroxysmal AFib with RVR Holding Eliquis for scope Lopressor 25mg Bid added - hr improved DVT prophylaxis-heparin subQ Full code reason for continued hospitalization:plan for scope Quality Stroke Does the patient have a stroke diagnosis?: No VTE Prior VTE?: No VTE Risk Level:: Medical - moderate - high VTE Device Contraindication: Treatment Not Indicated VTE Drug Contraindication: N/A - Med Ordered
[2024-12-24 11:41] LABS: Glucose, Whole Blood 213 mg/dL (60-115)
[2024-12-24] MEDS: PEG 3350/Na Sulf,Bicarb,Cl/KCL 4,000 ML SOLN.RECON 4000 ML PO (15:45)
[2024-12-24 15:56] VITALS: BP 151/65; PULSE 73; RESP 19; TEMP 36.4; O2SAT 99
[2024-12-24 16:37] LABS: Glucose, Whole Blood 155 mg/dL (60-115)
[2024-12-24 20:00] VITALS: BP 113/57; PULSE 59; RESP 20; TEMP 36.2; O2SAT 98
[2024-12-24 21:05] LABS: Glucose, Whole Blood 156 mg/dL (60-115)
[2024-12-24 21:21] VITALS: BP 131/66
[2024-12-24 23:42] VITALS: BP 154/66; PULSE 73; RESP 17; TEMP 36; O2SAT 98
[2024-12-25] VITALS (11 sets, daily range): BP systolic 151–196; BP diastolic 44–98; PULSE 50–72; RESP 12–18; TEMP 35.9–36.8; O2SAT 94–100
[2024-12-25 06:07] LABS: MANUAL DIFF FLAG NO
[2024-12-25 06:21] LABS: Hematocrit 34.8 % (42.0-52.0); Hemoglobin 11.2 g/dl (14.0-18.0); INTERNATIONAL NORM RATIO 1.1 (0.9-1.1); Imm Gran Abs Auto 0.03 X10*3/uL (0.00-0.03); Imm Gran Pct Auto 0.4 % (0.0-0.4); Lymphocytes Absolute Auto 2.1 X10*3/uL (1.2-4.9); Mean Corpuscular HGB Conc 32.2 g/dl (31.0-36.0); Mean Corpuscular Hemoglobin 29.8 pg (27.0-33.0); Mean Corpuscular Volume 92.6 fL (80.0-98.0); NRBC Abs Auto 0.000 X10*3/uL (0.0-0.012); NRBC Pct Auto 0.0 /100WBC (0.0-0.2); Platelet Count 183 X10*3/uL (160-400); Prothrombin Time 12.2 SEC (10.9-12.4); Red Blood Count 3.76 X10*6/uL (4.60-5.80); White Blood Count 7.1 X10*3/uL (4.8-10.8)
[2024-12-25 06:26] LABS: Anion Gap 11 (12-20); Blood Urea Nitrogen 14 mg/dL (9-16); Calcium 8.3 mg/dL (8.4-10.2); Carbon Dioxide 26 mmol/L (22-29); Chloride 109 mmol/L (96-108); Creatinine Clr Calc Pharmacy 79.4; Estimated Glomerular Filt Rate > 60; Potassium 3.8 mmol/L (3.3-5.1); Sodium 142 mmol/L (135-145)
[2024-12-25 07:37] LABS: Glucose, Whole Blood 189 mg/dL (60-115)
[2024-12-25] MEDS: 0.9 % Sodium Chloride Flush 3 ML SYRINGE IVFLUSH ×2 (07:49→16:58)
--- NOTE | 2024-12-25 09:14 | P.PNIM_ITS ---
Subjective Subjective Date of Service: 12/25/24 Interval History: no new complaints Physical Exam 2 Vital Signs: Vital Signs: Last Vital Signs Temp 96.9 F 12/25/24 07:29 Pulse 50 12/25/24 07:42 Resp 16 12/25/24 07:29 BP 152/86 H 12/25/24 08:59 Pulse Ox 98 12/25/24 07:29 O2 Del Method Room Air 12/25/24 07:29 BMI result Body Mass Index 23.3 Const: General: cooperative HEENT: Head: Yes normal to inspection Face and sinus: Yes normal facial exam Mouth: Normal oral and palatal mucosa present Teeth and gingiva: d entition normal Eyes: General: appearance normal, both eyes and all related structures P upils: Equal, round and reactive pupils present Resp: Effort & Inspection: normal respiratory effort Cardio: Rate: regular rate Rhythm: regular rhythm GI: Palpation (GI): Soft to palpation and nontender : General: Yes no CVA tenderness Back/Spine/Pelvis: Back: no CVA tenderness Skin: General skin exam: no rashes or lesions noted Neuro: General: moves all extremities Cranial nerves: Yes Equal, round and reactive pupils present Extrem: General: Yes normal to inspection Psych: Other: confused Objective Data Active Medications Acetaminophen (Acetaminophen 325 Mg Tablet) 650 mg PO Q6H PRN PRN Reason: Pain, Mild 1-3,fever,headache Last Admin: 12/20/24 12:58 Dose: 650 mg Documented By: MADIHA Comments: OK to give per Dr. Escalera Atorvastatin Calcium (Atorvastatin Calcium 80 Mg Tablet) 80 mg PO BEDTIME [facility] Last Admin: 12/24/24 21:24 Dose: 80 mg Documented By: TRES Calcium Carbonate (Calcium Carbonate 750 Mg Tab.Chew) 750 mg PO Q4H PRN PRN Reason: Heartburn Ceftriaxone Sodium (Ceftriaxone Sodium 1 Gm Vial) 1 gm IVPUSH Q24H [facility] Last Admin: 12/24/24 19:23 Dose: 1 gm Documented By: TRES Cyanocobalamin (Cyanocobalamin (Vitamin B-12) 500 Mcg Tablet) 500 mcg PO DAILY [facility] Last Admin: 12/25/24 07:46 Dose: 500 mcg Documented By: LINDSEY Dextrose (Dextrose 50 % 25 Gm/50 Ml Syringe) 25 gm IVPUSH Q15M PRN; Protocol PRN Reason: per Hypoglycemia Standing Ord. Gabapentin (Gabapentin 100 Mg Capsule) 100 mg PO BID [facility] Last Admin: 12/25/24 07:46 Dose: 100 mg Documented By: LINDSEY Glucose (Glucose Gel 15 Gm Gel..Gram.) 15 gm PO Q15M PRN; Protocol PRN Reason: per Hypoglycemia Standing Ord. Insulin Human Lispro (Insulin Lispro 100 Unit/Ml 3 Ml Vial) 0 unit SUBCUT QIDACHS [facility]; Protocol Last Admin: 12/25/24 07:52 Dose: Not Given Documented By: LINDSEY Non-Admin Reason: NPO Lisinopril (Lisinopril 5 Mg Tablet) 5 mg PO BEDTIME [facility]; Protocol Last Admin: 12/24/24 21:21 Dose: 5 mg Documented By: TRES Magnesium Hydroxide (Milk Of Magnesia 30 Ml Oral.Susp) 30 ml PO DAILY PRN PRN Reason: Constipation Melatonin (Melatonin 3 Mg Tablet) 6 mg PO BEDTIME PRN PRN Reason: Insomnia Metoprolol Tartrate (Metoprolol Tartrate 25 Mg Tablet) 25 mg PO BID [facility]; Protocol Last Admin: 12/25/24 07:49 Dose: Not Given Documented By: LINDSEY Non-Admin Reason: Decreased Heart Rate Sodium Biphosphate/Sodium Phosphate (Sodium Phosphate,[place]-Dibasic 133 Ml Enema) 133 ml [place] ONCE PRN PRN Reason: Poor Colonoscopy Prep Results Sodium Chloride (0.9 % Sodium Chloride Flush 3 Ml Syringe) 3 ml IVFLUSH QSHIFT [facility] Last Admin: 12/25/24 07:49 Dose: 3 ml Documented By: LINDSEY Tamsulosin HCl (Tamsulosin Hcl 0.4 Mg Capsule) 0.8 mg PO DAILY [facility] Last Admin: 12/25/24 07:46 Dose: 0.8 mg Documented By: LINDSEY Trazodone HCl (Trazodone Hcl 50 Mg Tablet) 50 mg PO BEDTIME [facility] Last Admin: 12/24/24 21:24 Dose: 50 mg Documented By: TRES Vitamin D (Cholecalciferol (Vitamin D3) 25 Mcg Tablet) 50 mcg PO DAILY [facility] Last Admin: 12/25/24 07:46 Dose: 50 mcg Documented By: LINDSEY Labs 12/25/24 05:57 12/25/24 05:57 Labs: Laboratory Results - last 24 hr 12/24/24 12/24/24 12/24/24 11:33 16:32 21:00 MCV MCH MCHC RDW Plt Count MPV Immature Gran % (Auto) Neut % (Auto) Lymph % (Auto) Whitman % (Auto) Eos % (Auto) Baso % (Auto) Lymph # (Auto) Whitman # (Auto) Eos # (Auto) Baso # (Auto) Abs Immat Gran (auto) Absolute Neuts (auto) Absolute Nucleated RBC Nucleated RBC % (auto) PT INR Anion Gap Estim Creat Clear Calc Estimated GFR POC Glucose 213 H 155 H 156 H Random Glucose Fasting Glucose Calcium 12/25/24 12/25/24 05:57 07:31 MCV 92.6 MCH 29.8 MCHC 32.2 RDW 13.5 Plt Count 183 MPV 12.2 Immature Gran % (Auto) 0.4 Neut % (Auto) 57.0 Lymph % (Auto) 29.8 Whitman % (Auto) 8.9 Eos % (Auto) 3.5 Baso % (Auto) 0.4 Lymph # (Auto) 2.1 Whitman # (Auto) 0.6 Eos # (Auto) 0.3 Baso # (Auto) 0.0 Abs Immat Gran (auto) 0.03 Absolute Neuts (auto) 4.0 Absolute Nucleated RBC 0.000 Nucleated RBC % (auto) 0.0 PT 12.2 D INR 1.1 Anion Gap 11 L Estim Creat Clear Calc 79.4 Estimated GFR > 60 POC Glucose 189 H Random Glucose 185 H Fasting Glucose 185 H Calcium 8.3 L Microbiology Microbiology Results: Microbiology 12/19/24 14:57 Blood Culture - Final Blood - Venous No growth after 5 days. 12/19/24 14:41 Blood Culture - Final Blood - Venous No growth after 5 days. Assessment and Plan (1) Type 2 diabetes mellitus with unspecified complications: Status: Acute Plan 84M PMH recurrent UTI, dementia, paroxysmal AFib on Eliquis, hypertension, GERD, depression, diabetes presented with altered mental status and weakness found to have urinary tract infection and suspicious colonic mass Acute metabolic encephalopathy due to urinary tract infection urine culture grew serratia complete rocephin course Possible colonic mass GI appreciated, holding eliquis, plan for scope today tuesdaydec 25 Diarrhea negative stool studies Paroxysmal AFib with RVR Holding Eliquis for scope Lopressor 25mg Bid added - hr improved DVT prophylaxis-heparin subQ Full code reason for continued hospitalization:plan for scope Quality Stroke Does the patient have a stroke diagnosis?: No VTE Prior VTE?: No VTE Risk Level:: Medical - moderate - high VTE Device Contraindication: Treatment Not Indicated VTE Drug Contraindication: N/A - Med Ordered
[2024-12-25 11:05] LABS: Glucose, Whole Blood 172 mg/dL (60-115)
--- NOTE | 2024-12-25 12:59 | ECG_ITS ---
Test Reason : ? rhythm Blood Pressure : */* mmHG Vent. Rate : 63 BPM Atrial Rate : 63 BPM P-R Int : 168 ms QRS Dur : 90 ms QT Int : 446 ms P-R-T Axes : 75 6 -7 degrees QTcB Int : 456 ms Sinus rhythm with Premature atrial complexes Otherwise normal ECG When compared with ECG of 19-Dec-2024 14:13, Premature ventricular complexes are no longer Present Premature atrial complexes are now Present Criteria for Inferior infarct are no longer Present Referred By: Lynne Rosario Electronically Signed By: Perico Mccartney
--- NOTE | 2024-12-25 13:01 | PC.NURSE ---
patient heart HR 50-70's, possible runs of bigemity. Dr. Rosario anesthesiologist at bedside. 12 lead EKG ordered and obtained.
--- NOTE | 2024-12-25 13:26 | HO.ANESPROP2 ---
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 at baseline Afib: on eliquis, no dizziness or palpitations Thoracic aorta aneurysm: chest CT imaging in chart from 2019, but no recent echo in [facility] [place] [facility] Anesthesia Pre-Procedure Meds Is the patient on any of the following meds?: SGLT2 Inhib PMFSH Active Problems Active Problems: All Active Problems Diarrhea (Acute) Chronic anemia (Acute) Abnormal abdominal CT scan (Acute) Acute metabolic encephalopathy (Acute) Acute UTI (Acute) Abdominal pain (Acute) Atherosclerotic cardiovascular disease (Acute) Preoperative cardiovascular examination (Acute) Dyslipidemia (Acute) Thoracic aneurysm without mention of rupture (Acute) Confusion (Acute) Left flank pain (Acute) S/P cardiac cath (Acute ~12/2019) Leukocytosis (Acute) Infarction of right basal ganglia (Acute) Precordial chest pain (Acute) Abnormal stress electrocardiogram test (Acute) Peripheral vascular disease (Acute) Essential hypertension (Acute) Type 2 diabetes mellitus with unspecified complications (Acute) Hyperlipidemia (Acute) Past Medical History Medical History Dyslipidemia Thoracic aneurysm without mention of rupture Confusion Leukocytosis Infarction of right basal ganglia Peripheral vascular disease Hyperlipidemia Essential hypertension Type 2 diabetes mellitus with unspecified complications Hx of cataract Family History Family History Father Throat cancer Mother Medical history unknown Brother No problems noted. Surgical History Surgical History S/P cardiac cath (~12/2019) History of cataract surgery Hx of appendectomy Hx of cholecystectomy Hx of pyloroplasty Hx of vagotomy Social History Social History Household Members: Foster Family Housing: House Are you a primary adult day care worker to a significant other at home: No Do you presently have visiting nurse or other home services: No Alcohol intake: never Patient Tobacco Use Status: Former Tobacco user Second Hand Smoke Exposure: No Advance Directives Date on File: 12/05/24 service: No Meds Allergies Allergy/AdvReac Type Severity Reaction Status Date / Time penicillin V Allergy Unknown Rash & Verified 12/19/24 13:32 Dizziness, rash and dizziness Active Medications: Current Medications Acetaminophen (Acetaminophen 325 Mg Tablet) 650 mg PO Q6H PRN PRN Reason: Pain, Mild 1-3,fever,headache Last Admin: 12/20/24 12:58 Dose: 650 mg Atorvastatin Calcium (Atorvastatin Calcium 80 Mg Tablet) 80 mg PO BEDTIME [facility] Last Admin: 12/24/24 21:24 Dose: 80 mg Calcium Carbonate (Calcium Carbonate 750 Mg Tab.Chew) 750 mg PO Q4H PRN PRN Reason: Heartburn Ceftriaxone Sodium (Ceftriaxone Sodium 1 Gm Vial) 1 gm IVPUSH Q24H [facility] Last Admin: 12/24/24 19:23 Dose: 1 gm Cyanocobalamin (Cyanocobalamin (Vitamin B-12) 500 Mcg Tablet) 500 mcg PO DAILY [facility] Last Admin: 12/25/24 07:46 Dose: 500 mcg Dextrose (Dextrose 50 % 25 Gm/50 Ml Syringe) 25 gm IVPUSH Q15M PRN; Protocol PRN Reason: per Hypoglycemia Standing Ord. Gabapentin (Gabapentin 100 Mg Capsule) 100 mg PO BID [facility] Last Admin: 12/25/24 07:46 Dose: 100 mg Glucose (Glucose Gel 15 Gm Gel..Gram.) 15 gm PO Q15M PRN; Protocol PRN Reason: per Hypoglycemia Standing Ord. Insulin Human Lispro (Insulin Lispro 100 Unit/Ml 3 Ml Vial) 0 unit SUBCUT QIDACHS [facility]; Protocol Last Admin: 12/25/24 07:52 Dose: Not Given Lisinopril (Lisinopril 5 Mg Tablet) 5 mg PO BEDTIME [facility]; Protocol Last Admin: 12/24/24 21:21 Dose: 5 mg Magnesium Hydroxide (Milk Of Magnesia 30 Ml Oral.Susp) 30 ml PO DAILY PRN PRN Reason: Constipation Melatonin (Melatonin 3 Mg Tablet) 6 mg PO BEDTIME PRN PRN Reason: Insomnia Metoprolol Tartrate (Metoprolol Tartrate 25 Mg Tablet) 25 mg PO BID [facility]; Protocol Last Admin: 12/25/24 07:49 Dose: Not Given Sodium Biphosphate/Sodium Phosphate (Sodium Phosphate,[place]-Dibasic 133 Ml Enema) 133 ml OK ONCE PRN PRN Reason: Poor Colonoscopy Prep Results Sodium Chloride (0.9 % Sodium Chloride Flush 3 Ml Syringe) 3 ml IVFLUSH QSHIFT [facility] Last Admin: 12/25/24 07:49 Dose: 3 ml Tamsulosin HCl (Tamsulosin Hcl 0.4 Mg Capsule) 0.8 mg PO DAILY [facility] Last Admin: 12/25/24 07:46 Dose: 0.8 mg Trazodone HCl (Trazodone Hcl 50 Mg Tablet) 50 mg PO BEDTIME [facility] Last Admin: 12/24/24 21:24 Dose: 50 mg Vitamin D (Cholecalciferol (Vitamin D3) 25 Mcg Tablet) 50 mcg PO DAILY [facility] Last Admin: 12/25/24 07:46 Dose: 50 mcg Home Medications ?Medication ?Instructions ?Recorded ?Confirmed ?Last Taken ?Type tamsulosin 0.4 mg capsule 0.8 mg PO DAILY 12/10/19 12/19/24 12/19/24 History acetaminophen 325 mg tablet 650 mg PO BID PRN Fever Or Pain 12/05/24 12/19/24 Unknown History apixaban 5 mg tablet (Eliquis) 5 mg PO BID 12/05/24 12/19/24 12/19/24 History atorvastatin 80 mg tablet 80 mg PO BEDTIME 12/05/24 12/19/24 12/18/24 History cholecalciferol (vitamin D3) 50 50 mcg PO DAILY 12/05/24 12/19/24 12/19/24 History mcg (2,000 unit) capsule (Vitamin D3) cyanocobalamin (vitamin B-12) 500 500 mcg PO DAILY 12/05/24 12/19/24 12/19/24 History mcg tablet (Vitamin B-12) empagliflozin 10 mg tablet 10 mg PO DAILY 12/05/24 12/19/24 12/19/24 History (Jardiance) gabapentin 100 mg capsule 100 mg PO BID 12/05/24 12/19/24 12/19/24 History lisinopril 5 mg tablet 5 mg PO BEDTIME 12/05/24 12/19/24 12/18/24 History trazodone 50 mg tablet 50 mg PO BEDTIME 12/05/24 12/19/24 12/18/24 History Exam Height,Weight and Vital Signs: Height 5 ft 11 in Weight 75.9 kg Last Vital Signs Temp 96.9 F 12/25/24 07:29 Pulse 50 12/25/24 07:42 Resp 16 12/25/24 07:29 BP 160/60 H 12/25/24 07:29 Pulse Ox 98 12/25/24 07:29 O2 Del Method Room Air 12/25/24 07:29 Pertinent Lab Results Pertinent Lab Results: Laboratory Tests 12/19/24 12/19/24 12/20/24 14:41 18:24 03:50 WBC 10.6 7.4 RBC 3.97 L 3.70 L Hgb 11.9 L 11.0 L Hct 37.2 L 35.1 L MCV 93.7 94.9 MCH 30.0 29.7 MCHC 32.0 31.3 RDW 14.1 14.1 Plt Count 205 178 MPV 12.3 12.5 H Immature Gran % (Auto) 0.4 0.4 Neut % (Auto) 75.6 H 74.6 H Lymph % (Auto) 13.3 L 14.7 L [place] % (Auto) 10.0 8.3 Eos % (Auto) 0.2 1.2 Baso % (Auto) 0.5 0.8 Lymph # (Auto) 1.4 1.1 L [place] # (Auto) 1.1 0.6 Eos # (Auto) 0.0 0.1 Baso # (Auto) 0.1 0.1 Abs Immat Gran (auto) 0.04 H 0.03 Absolute Neuts (auto) 8.1 5.5 Absolute Nucleated RBC 0.000 0.000 Nucleated RBC % (auto) 0.0 0.0 PT INR Sodium 141 144 Potassium 4.1 4.1 Chloride 110 H 112 H Carbon Dioxide 26 24 Anion Gap 9 L 12 BUN 19 H 15 Creatinine 1.13 0.99 Estim Creat Clear Calc 52.7 60.2 Estimated GFR > 60 > 60 POC Glucose Random Glucose 178 H 133 H Fasting Glucose Lactic Acid 1.4 Calcium 8.8 8.5 Magnesium 2.2 Total Bilirubin 0.9 0.7 Direct Bilirubin AST 18 17 ALT 18 12 Alkaline Phosphatase 164 H 151 H Ammonia 19 Troponin I High Sens 9.9 D Total Protein 6.5 6.0 L Albumin 3.9 3.5 Lipase 14 Urine Color Yellow Urine Appearance Turbid Urine pH 5.5 Ur Specific [place] >= 1.030 H Urine Protein 100 (2+) H Urine Glucose (UA) >=1000 H Urine Ketones Negative Urine Blood Moderate (2+) H Urine Nitrite Negative Ur Leukocyte Esterase Large (3+) H Urine RBC 6-10 H Urine WBC >50 H Ur Squamous Epith Cells 3-5 Urine Bacteria 4+ Hyaline Casts 0-2 Stl C. cayetanensis PCR Stool Rotavirus A PCR Stl Adenov F 40 PCR Stool Astrovirus (PCR) Stool Campylobacter PCR Stool Cryptosporidium PCR Stl Sh Tox Pr E STEC PCR Stool E coli O157 PCR Stl Enterotoxigenic E PCR Stool EPEC (PCR) Stool EAEC (PCR) Stl E. histolytica PCR Stool Giardia Lamblia PCR Stl P. shigelloides PCR Stool Salmonella PCR Stool Sapovirus (PCR) Stl Shigella/EIEC PCR St Y.enterocolitica PCR Stool Vibrio (PCR) Stl Vibrio cholerae PCR Stl Norovirus GI/GII PCR C. difficile Tox B Gene 12/20/24 12/20/24 12/20/24 07:21 12:56 13:59 WBC RBC Hgb Hct MCV MCH MCHC RDW Plt Count MPV Immature Gran % (Auto) Neut % (Auto) Lymph % (Auto) [place] % (Auto) Eos % (Auto) Baso % (Auto) Lymph # (Auto) [place] # (Auto) Eos # (Auto) Baso # (Auto) Abs Immat Gran (auto) Absolute Neuts (auto) Absolute Nucleated RBC Nucleated RBC % (auto) PT INR Sodium Potassium Chloride Carbon Dioxide Anion Gap BUN Creatinine Estim Creat Clear Calc Estimated GFR POC Glucose 120 H 205 H 214 H Random Glucose Fasting Glucose Lactic Acid Calcium Magnesium Total Bilirubin Direct Bilirubin AST ALT Alkaline Phosphatase Ammonia Troponin I High Sens Total Protein Albumin Lipase Urine Color Urine Appearance Urine pH Ur Specific [place] Urine Protein Urine Glucose (UA) Urine Ketones Urine Blood Urine Nitrite Ur Leukocyte Esterase Urine RBC Urine WBC Ur Squamous Epith Cells Urine Bacteria Hyaline Casts Stl C. cayetanensis PCR Stool Rotavirus A PCR Stl Adenov F PCR Stool Astrovirus (PCR) Stool Campylobacter PCR Stool Cryptosporidium PCR Stl Sh Tox Pr E STEC PCR Stool E coli O157 PCR Stl Enterotoxigenic E PCR Stool EPEC (PCR) Stool EAEC (PCR) Stl E. histolytica PCR Stool Giardia Lamblia PCR Stl P. shigelloides PCR Stool Salmonella PCR Stool Sapovirus (PCR) Stl Shigella/EIEC PCR St Y.enterocolitica PCR Stool Vibrio (PCR) Stl Vibrio cholerae PCR Stl Norovirus GI/GII PCR C. difficile Tox B Gene 12/20/24 12/20/24 12/21/24 16:19 20:42 05:27 WBC 5.2 RBC 3.55 L Hgb 10.5 L Hct 33.2 L MCV 93.5 MCH 29.6 MCHC 31.6 RDW 13.6 Plt Count 198 MPV 12.1 Immature Gran % (Auto) Neut % (Auto) Lymph % (Auto) [place] % (Auto) Eos % (Auto) Baso % (Auto) Lymph # (Auto) [place] # (Auto) Eos # (Auto) Baso # (Auto) Abs Immat Gran (auto) Absolute Neuts (auto) Absolute Nucleated RBC 0.000 Nucleated RBC % (auto) 0.0 PT 15.5 H INR 1.4 H Sodium 141 Potassium 3.7 Chloride 110 H Carbon Dioxide 25 Anion Gap 10 L BUN 14 Creatinine 0.91 Estim Creat Clear Calc 65.5 Estimated GFR > 60 POC Glucose 172 H 186 H Random Glucose 121 H Fasting Glucose Lactic Acid Calcium 8.4 Magnesium 1.9 Total Bilirubin Direct Bilirubin AST ALT Alkaline Phosphatase Ammonia Troponin I High Sens Total Protein Albumin Lipase Urine Color Urine Appearance Urine pH Ur Specific [place] Urine Protein Urine Glucose (UA) Urine Ketones Urine Blood Urine Nitrite Ur Leukocyte Esterase Urine RBC Urine WBC Ur Squamous Epith Cells Urine Bacteria Hyaline Casts Stl C. cayetanensis PCR Stool Rotavirus A PCR Stl Adenov F 40/41 PCR Stool Astrovirus (PCR) Stool Campylobacter PCR Stool Cryptosporidium PCR Stl Sh Tox Pr E STEC PCR Stool E coli O157 PCR Stl Enterotoxigenic E PCR Stool EPEC (PCR) Stool EAEC (PCR) Stl E. histolytica PCR Stool Giardia Lamblia PCR Stl P. shigelloides PCR Stool Salmonella PCR Stool Sapovirus (PCR) Stl Shigella/EIEC PCR St Y.enterocolitica PCR Stool Vibrio (PCR) Stl Vibrio cholerae PCR Stl Norovirus GI/GII PCR C. difficile Tox B Gene 12/21/24 12/21/24 12/21/24 07:15 11:38 16:12 WBC RBC Hgb Hct MCV MCH MCHC RDW Plt Count MPV Immature Gran % (Auto) Neut % (Auto) Lymph % (Auto) [place] % (Auto) Eos % (Auto) Baso % (Auto) Lymph # (Auto) [place] # (Auto) Eos # (Auto) Baso # (Auto) Abs Immat Gran (auto) Absolute Neuts (auto) Absolute Nucleated RBC Nucleated RBC % (auto) PT INR Sodium Potassium Chloride Carbon Dioxide Anion Gap BUN Creatinine Estim Creat Clear Calc Estimated GFR POC Glucose 120 H 179 H 139 H Random Glucose Fasting Glucose Lactic Acid Calcium Magnesium Total Bilirubin Direct Bilirubin AST ALT Alkaline Phosphatase Ammonia Troponin I High Sens Total Protein Albumin Lipase Urine Color Urine Appearance Urine pH Ur Specific [place] Urine Protein Urine Glucose (UA) Urine Ketones Urine Blood Urine Nitrite Ur Leukocyte Esterase Urine RBC Urine WBC Ur Squamous Epith Cells Urine Bacteria Hyaline Casts Stl C. cayetanensis PCR Stool Rotavirus A PCR Stl Adenov F PCR Stool Astrovirus (PCR) Stool Campylobacter PCR Stool Cryptosporidium PCR Stl Sh Tox Pr E STEC PCR Stool E coli O157 PCR Stl Enterotoxigenic E PCR Stool EPEC (PCR) Stool EAEC (PCR) Stl E. histolytica PCR Stool Giardia Lamblia PCR Stl P. shigelloides PCR Stool Salmonella PCR Stool Sapovirus (PCR) Stl Shigella/EIEC PCR St Y.enterocolitica PCR Stool Vibrio (PCR) Stl Vibrio cholerae PCR Stl Norovirus GI/GII PCR C. difficile Tox B Gene 12/21/24 12/21/24 12/21/24 16:22 20:03 Unknown WBC RBC Hgb Hct MCV MCH MCHC RDW Plt Count MPV Immature Gran % (Auto) Neut % (Auto) Lymph % (Auto) [place] % (Auto) Eos % (Auto) Baso % (Auto) Lymph # (Auto) [place] # (Auto) Eos # (Auto) Baso # (Auto) Abs Immat Gran (auto) Absolute Neuts (auto) Absolute Nucleated RBC Nucleated RBC % (auto) PT INR Sodium Potassium Chloride Carbon Dioxide Anion Gap BUN Creatinine Estim Creat Clear Calc Estimated GFR POC Glucose 234 H Random Glucose Fasting Glucose Lactic Acid Calcium Magnesium Total Bilirubin Direct Bilirubin AST ALT Alkaline Phosphatase Ammonia Troponin I High Sens Total Protein Albumin Lipase Urine Color Urine Appearance Urine pH Ur Specific [place] Urine Protein Urine Glucose (UA) Urine Ketones Urine Blood Urine Nitrite Ur Leukocyte Esterase Urine RBC Urine WBC Ur Squamous Epith Cells Urine Bacteria Hyaline Casts Stl C. cayetanensis PCR Cancelled Stool Rotavirus A PCR Cancelled Stl Adenov F PCR Cancelled Stool Astrovirus (PCR) Cancelled Stool Campylobacter PCR Cancelled Stool Cryptosporidium PCR Cancelled Stl Sh Tox Pr E STEC PCR Cancelled Stool E coli O157 PCR Cancelled Stl Enterotoxigenic E PCR Cancelled Stool EPEC (PCR) Cancelled Stool EAEC (PCR) Cancelled Stl E. histolytica PCR Cancelled Stool Giardia Lamblia PCR Cancelled Stl P. shigelloides PCR Cancelled Stool Salmonella PCR Cancelled Stool Sapovirus (PCR) Cancelled Stl Shigella/EIEC PCR Cancelled St Y.enterocolitica PCR Cancelled Stool Vibrio (PCR) Cancelled Stl Vibrio cholerae PCR Cancelled Stl Norovirus GI/GII PCR Cancelled C. difficile Tox B Gene NEGATIVE 12/22/24 12/22/24 12/22/24 05:45 07:08 11:04 WBC 6.2 RBC 4.10 L Hgb 12.3 L Hct 37.4 L MCV 91.2 MCH 30.0 MCHC 32.9 RDW 13.6 Plt Count 215 MPV 11.9 Immature Gran % (Auto) Neut % (Auto) Lymph % (Auto) [place] % (Auto) Eos % (Auto) Baso % (Auto) Lymph # (Auto) [place] # (Auto) Eos # (Auto) Baso # (Auto) Abs Immat Gran (auto) Absolute Neuts (auto) Absolute Nucleated RBC 0.000 Nucleated RBC % (auto) 0.0 PT INR Sodium 142 Potassium 3.8 Chloride 107 Carbon Dioxide 27 Anion Gap 12 BUN 19 H Creatinine 0.83 Estim Creat Clear Calc 71.8 Estimated GFR > 60 POC Glucose 152 H 204 H Random Glucose 128 H Fasting Glucose Lactic Acid Calcium 8.5 Magnesium Total Bilirubin Direct Bilirubin AST ALT Alkaline Phosphatase Ammonia Troponin I High Sens Total Protein Albumin Lipase Urine Color Urine Appearance Urine pH Ur Specific [place] Urine Protein Urine Glucose (UA) Urine Ketones Urine Blood Urine Nitrite Ur Leukocyte Esterase Urine RBC Urine WBC Ur Squamous Epith Cells Urine Bacteria Hyaline Casts Stl C. cayetanensis PCR Stool Rotavirus A PCR Stl Adenov F 40 PCR Stool Astrovirus (PCR) Stool Campylobacter PCR Stool Cryptosporidium PCR Stl Sh Tox Pr E STEC PCR Stool E coli O157 PCR Stl Enterotoxigenic E PCR Stool EPEC (PCR) Stool EAEC (PCR) Stl E. histolytica PCR Stool Giardia Lamblia PCR Stl P. shigelloides PCR Stool Salmonella PCR Stool Sapovirus (PCR) Stl Shigella/EIEC PCR St Y.enterocolitica PCR Stool Vibrio (PCR) Stl Vibrio cholerae PCR Stl Norovirus GI/GII PCR C. difficile Tox B Gene 12/22/24 12/22/24 12/23/24 16:09 20:13 05:58 WBC 5.9 RBC 3.97 L Hgb 11.9 L Hct 37.0 L MCV 93.2 MCH 30.0 MCHC 32.2 RDW 13.5 Plt Count 220 MPV 12.0 Immature Gran % (Auto) Neut % (Auto) Lymph % (Auto) [place] % (Auto) Eos % (Auto) Baso % (Auto) Lymph # (Auto) [place] # (Auto) Eos # (Auto) Baso # (Auto) Abs Immat Gran (auto) Absolute Neuts (auto) Absolute Nucleated RBC 0.000 Nucleated RBC % (auto) 0.0 PT INR Sodium 142 Potassium 3.8 Chloride 107 Carbon Dioxide 26 Anion Gap 13 BUN 24 H Creatinine 1.05 Estim Creat Clear Calc 56.7 Estimated GFR > 60 POC Glucose 218 H 206 H Random Glucose 186 H Fasting Glucose Lactic Acid Calcium 8.5 Magnesium 2.0 Total Bilirubin 0.4 Direct Bilirubin 0.1 AST 24 ALT 15 Alkaline Phosphatase 139 H Ammonia Troponin I High Sens Total Protein 6.0 L Albumin 3.4 L Lipase Urine Color Urine Appearance Urine pH Ur Specific [place] Urine Protein Urine Glucose (UA) Urine Ketones Urine Blood Urine Nitrite Ur Leukocyte Esterase Urine RBC Urine WBC Ur Squamous Epith Cells Urine Bacteria Hyaline Casts Stl C. cayetanensis PCR Stool Rotavirus A PCR Stl Adenov F 40/ PCR Stool Astrovirus (PCR) Stool Campylobacter PCR Stool Cryptosporidium PCR Stl Sh Tox Pr E STEC PCR Stool E coli O157 PCR Stl Enterotoxigenic E PCR Stool EPEC (PCR) Stool EAEC (PCR) Stl E. histolytica PCR Stool Giardia Lamblia PCR Stl P. shigelloides PCR Stool Salmonella PCR Stool Sapovirus (PCR) Stl Shigella/EIEC PCR St Y.enterocolitica PCR Stool Vibrio (PCR) Stl Vibrio cholerae PCR Stl Norovirus GI/GII PCR C. difficile Tox B Gene 12/23/24 12/23/24 12/23/24 07:41 11:20 16:24 WBC RBC Hgb Hct MCV MCH MCHC RDW Plt Count MPV Immature Gran % (Auto) Neut % (Auto) Lymph % (Auto) [place] % (Auto) Eos % (Auto) Baso % (Auto) Lymph # (Auto) [place] # (Auto) Eos # (Auto) Baso # (Auto) Abs Immat Gran (auto) Absolute Neuts (auto) Absolute Nucleated RBC Nucleated RBC % (auto) PT INR Sodium Potassium Chloride Carbon Dioxide Anion Gap BUN Creatinine Estim Creat Clear Calc Estimated GFR POC Glucose 171 H 189 H 174 H Random Glucose Fasting Glucose Lactic Acid Calcium Magnesium Total Bilirubin Direct Bilirubin AST ALT Alkaline Phosphatase Ammonia Troponin I High Sens Total Protein Albumin Lipase Urine Color Urine Appearance Urine pH Ur Specific [place] Urine Protein Urine Glucose (UA) Urine Ketones Urine Blood Urine Nitrite Ur Leukocyte Esterase Urine RBC Urine WBC Ur Squamous Epith Cells Urine Bacteria Hyaline Casts Stl C. cayetanensis PCR Stool Rotavirus A PCR Stl Adenov F PCR Stool Astrovirus (PCR) Stool Campylobacter PCR Stool Cryptosporidium PCR Stl Sh Tox Pr E STEC PCR Stool E coli O157 PCR Stl Enterotoxigenic E PCR Stool EPEC (PCR) Stool EAEC (PCR) Stl E. histolytica PCR Stool Giardia Lamblia PCR Stl P. shigelloides PCR Stool Salmonella PCR Stool Sapovirus (PCR) Stl Shigella/EIEC PCR St Y.enterocolitica PCR Stool Vibrio (PCR) Stl Vibrio cholerae PCR Stl Norovirus GI/GII PCR C. difficile Tox B Gene 12/23/24 12/24/24 12/24/24 19:31 07:29 11:33 WBC RBC Hgb Hct MCV MCH MCHC RDW Plt Count MPV Immature Gran % (Auto) Neut % (Auto) Lymph % (Auto) [place] % (Auto) Eos % (Auto) Baso % (Auto) Lymph # (Auto) [place] # (Auto) Eos # (Auto) Baso # (Auto) Abs Immat Gran (auto) Absolute Neuts (auto) Absolute Nucleated RBC Nucleated RBC % (auto) PT INR Sodium Potassium Chloride Carbon Dioxide Anion Gap BUN Creatinine Estim Creat Clear Calc Estimated GFR POC Glucose 217 H 194 H 213 H Random Glucose Fasting Glucose Lactic Acid Calcium Magnesium Total Bilirubin Direct Bilirubin AST ALT Alkaline Phosphatase Ammonia Troponin I High Sens Total Protein Albumin Lipase Urine Color Urine Appearance Urine pH Ur Specific [place] Urine Protein Urine Glucose (UA) Urine Ketones Urine Blood Urine Nitrite Ur Leukocyte Esterase Urine RBC Urine WBC Ur Squamous Epith Cells Urine Bacteria Hyaline Casts Stl C. cayetanensis PCR Stool Rotavirus A PCR Stl Adenov F PCR Stool Astrovirus (PCR) Stool Campylobacter PCR Stool Cryptosporidium PCR Stl Sh Tox Pr E STEC PCR Stool E coli O157 PCR Stl Enterotoxigenic E PCR Stool EPEC (PCR) Stool EAEC (PCR) Stl E. histolytica PCR Stool Giardia Lamblia PCR Stl P. shigelloides PCR Stool Salmonella PCR Stool Sapovirus (PCR) Stl Shigella/EIEC PCR St Y.enterocolitica PCR Stool Vibrio (PCR) Stl Vibrio cholerae PCR Stl Norovirus GI/GII PCR C. difficile Tox B Gene 12/24/24 12/24/24 12/25/24 16:32 21:00 05:57 WBC 7.1 RBC 3.76 L Hgb 11.2 L Hct 34.8 L MCV 92.6 MCH 29.8 MCHC 32.2 RDW 13.5 Plt Count 183 MPV 12.2 Immature Gran % (Auto) 0.4 Neut % (Auto) 57.0 Lymph % (Auto) 29.8 [place] % (Auto) 8.9 Eos % (Auto) 3.5 Baso % (Auto) 0.4 Lymph # (Auto) 2.1 [place] # (Auto) 0.6 Eos # (Auto) 0.3 Baso # (Auto) 0.0 Abs Immat Gran (auto) 0.03 Absolute Neuts (auto) 4.0 Absolute Nucleated RBC 0.000 Nucleated RBC % (auto) 0.0 PT 12.2 D INR 1.1 Sodium 142 Potassium 3.8 Chloride 109 H Carbon Dioxide 26 Anion Gap 11 L BUN 14 Creatinine 0.75 Estim Creat Clear Calc 79.4 Estimated GFR > 60 POC Glucose 155 H 156 H Random Glucose 185 H Fasting Glucose 185 H Lactic Acid Calcium 8.3 L Magnesium Total Bilirubin Direct Bilirubin AST ALT Alkaline Phosphatase Ammonia Troponin I High Sens Total Protein Albumin Lipase Urine Color Urine Appearance Urine pH Ur Specific [place] Urine Protein Urine Glucose (UA) Urine Ketones Urine Blood Urine Nitrite Ur Leukocyte Esterase Urine RBC Urine WBC Ur Squamous Epith Cells Urine Bacteria Hyaline Casts Stl C. cayetanensis PCR Stool Rotavirus A PCR Stl Adenov PCR Stool Astrovirus (PCR) Stool Campylobacter PCR Stool Cryptosporidium PCR Stl Sh Tox Pr E STEC PCR Stool E coli O157 PCR Stl Enterotoxigenic E PCR Stool EPEC (PCR) Stool EAEC (PCR) Stl E. histolytica PCR Stool Giardia Lamblia PCR Stl P. shigelloides PCR Stool Salmonella PCR Stool Sapovirus (PCR) Stl Shigella/EIEC PCR St Y.enterocolitica PCR Stool Vibrio (PCR) Stl Vibrio cholerae PCR Stl Norovirus GI/GII PCR C. difficile Tox B Gene 12/25/24 07:31 WBC RBC Hgb Hct MCV MCH MCHC RDW Plt Count MPV Immature Gran % (Auto) Neut % (Auto) Lymph % (Auto) [place] % (Auto) Eos % (Auto) Baso % (Auto) Lymph # (Auto) [place] # (Auto) Eos # (Auto) Baso # (Auto) Abs Immat Gran (auto) Absolute Neuts (auto) Absolute Nucleated RBC Nucleated RBC % (auto) PT INR Sodium Potassium Chloride Carbon Dioxide Anion Gap BUN Creatinine Estim Creat Clear Calc Estimated GFR POC Glucose 189 H Random Glucose Fasting Glucose Lactic Acid Calcium Magnesium Total Bilirubin Direct Bilirubin AST ALT Alkaline Phosphatase Ammonia Troponin I High Sens Total Protein Albumin Lipase Urine Color Urine Appearance Urine pH Ur Specific [place] Urine Protein Urine Glucose (UA) Urine Ketones Urine Blood Urine Nitrite Ur Leukocyte Esterase Urine RBC Urine WBC Ur Squamous Epith Cells Urine Bacteria Hyaline Casts Stl C. cayetanensis PCR Stool Rotavirus A PCR Stl Adenov F 40/41 PCR Stool Astrovirus (PCR) Stool Campylobacter PCR Stool Cryptosporidium PCR Stl Sh Tox Pr E STEC PCR Stool E coli O157 PCR Stl Enterotoxigenic E PCR Stool EPEC (PCR) Stool EAEC (PCR) Stl E. histolytica PCR Stool Giardia Lamblia PCR Stl P. shigelloides PCR Stool Salmonella PCR Stool Sapovirus (PCR) Stl Shigella/EIEC PCR St Y.enterocolitica PCR Stool Vibrio (PCR) Stl Vibrio cholerae PCR Stl Norovirus GI/GII PCR C. difficile Tox B Gene Narrative Narrative: EKG 12/19/24 Vent. Rate : 61 BPM Atrial Rate : 61 BPM P-R Int : 182 ms QRS Dur : 82 ms QT Int : 430 ms P-R-T Axes : 74 -7 -11 degrees QTcB Int : 432 ms Sinus rhythm with frequent Premature ventricular complexes Minimal voltage criteria for LVH, may be normal variant ( R in aVL ) Inferior infarct , age undetermined Abnormal ECG When compared with ECG of 05-Dec-2024 09:07, Premature ventricular complexes are now Present Premature supraventricular complexes are no longer Present Inferior infarct is now Present Documented by User: Lynne Rosario DO 12/25/24 13:29 HPI - Anesthesia Eval Consult details Narrative: 84 yr old male for colonoscopy No CP/SOB Afib: on eliquis, no dizziness or palpitations Thoracic aorta aneurysm: chest CT imaging in chart from 2019, but no recent echo in [facility] [place] Anesthesia Pre-Procedure Meds Is the patient on any of the following meds?: SGLT2 Inhib PMFSH Past Medical History Medical History Dyslipidemia Thoracic aneurysm without mention of rupture Confusion Leukocytosis Infarction of right basal ganglia Peripheral vascular disease Hyperlipidemia Essential hypertension Type 2 diabetes mellitus with unspecified complications Hx of cataract Family History Family History Father Throat cancer Mother Medical history unknown Brother No problems noted. Family history of problems with anesthesia: No Surgical History Surgical History S/P cardiac cath (~12/2019) History of cataract surgery Hx of appendectomy Hx of cholecystectomy Hx of pyloroplasty Hx of vagotomy History of Problems with Anesthesia: No Social History Social History Household Members: Foster Family Housing: House Are you a primary adult day care worker to a significant other at home: No Do you presently have visiting nurse or other home services: No Alcohol intake: never Patient Tobacco Use Status: Former Tobacco user Second Hand Smoke Exposure: No Advance Directives Date on File: 12/05/24 service: No Meds Allergies Allergy/AdvReac Type Severity Reaction Status Date / Time penicillin V Allergy Unknown Rash & Verified 12/19/24 13:32 Dizziness, rash and dizziness Home Medications ?Medication ?Instructions ?Recorded ?Confirmed ?Last Taken ?Type tamsulosin 0.4 mg capsule 0.8 mg PO DAILY 12/10/19 12/19/24 12/19/24 History acetaminophen 325 mg tablet 650 mg PO BID PRN Fever Or Pain 12/05/24 12/19/24 Unknown History apixaban 5 mg tablet (Eliquis) 5 mg PO BID 12/05/24 12/19/24 12/19/24 History atorvastatin 80 mg tablet 80 mg PO BEDTIME 12/05/24 12/19/24 12/18/24 History cholecalciferol (vitamin D3) 50 50 mcg PO DAILY 12/05/24 12/19/24 12/19/24 History mcg (2,000 unit) capsule (Vitamin D3) cyanocobalamin (vitamin B-12) 500 500 mcg PO DAILY 12/05/24 12/19/24 12/19/24 History mcg tablet (Vitamin B-12) empagliflozin 10 mg tablet 10 mg PO DAILY 12/05/24 12/19/24 12/19/24 History (Jardiance) gabapentin 100 mg capsule 100 mg PO BID 12/05/24 12/19/24 12/19/24 History lisinopril 5 mg tablet 5 mg PO BEDTIME 12/05/24 12/19/24 12/18/24 History trazodone 50 mg tablet 50 mg PO BEDTIME 12/05/24 12/19/24 12/18/24 History Exam Exam Date and Time: 12/25/24 1325 Airway Mallampati Class: II TM Dist: >3cm Neck ROM: Limited Loose/Missing/Broken Teeth: Yes (several chipped teeth) Heart: S1S2 Lungs: CTAB Assessment and Plan Assessment Anesthesia Assessment: Anesthesia Plan Discussed and Chart Reviewed Final Anesthetic Review Family History of Problems with Anesthesia: No History of Problems with Anesthesia: No NPO: Yes ASA Class: III Final Preanesthetic Review: No Changes in Pt Med Stat, Meds/Allgs Chart Reviewed, Consent Obtained/Reviewed and Anes Risks/Benef Reviewed Patient Risk: Intermediate Procedure Risk: Low Anesthetic Plan Anesthetic Plan: MAC: and Agree w/ Assess. and Plan Disposition: Standard PACU
--- NOTE | 2024-12-25 14:15 | MHC.CM.PN ---
PT eval recommendation is STR. A clinical update has been sent to facilities referred. DP STR via BLS.
--- NOTE | 2024-12-25 14:53 | PM.EVENT ---
Event Note Date of Service: 12/25/24 Event Note: GI colonoscopy showed 2 polyps, removed no tumor pandiverticulosis diet advanced hold ac for 48 hrs (10mm polypectomy) f/u bx results Time Spent With Patient Time: Total time managing care of this patient today ____ minutes.
[2024-12-25 15:59] LABS: Glucose, Whole Blood 163 mg/dL (60-115)
[2024-12-25 21:17] LABS: Glucose, Whole Blood 234 mg/dL (60-115)
[2024-12-25 23:03] LABS: Glucose, Whole Blood 249 mg/dL (60-115)
[2024-12-26] MEDS: 0.9 % Sodium Chloride Flush 3 ML SYRINGE IVFLUSH ×3 (00:40→21:08)
--- NOTE | 2024-12-26 01:53 | OP_ITS ---
DATE OF SERVICE: 12/25/2024 SURGEON: Arben Martinez MD INDICATIONS: Abnormal CT of colon Weight loss PROCEDURE PERFORMED: Colonoscopy to the cecum with snare polypectomy, biopsy, and placement of endoscopic hemostatic clip. ESTIMATED BLOOD LOSS: COMPLICATIONS: ANESTHESIA: Monitored anesthesia care. ASSISTANTS: SPECIMENS: DESCRIPTION OF PROCEDURE: A History and Physical were performed. The risks and benefits of the procedure were explained to the patient. Informed consent was obtained. The patient was placed in the left lateral decubitus position. A digital rectal exam was performed and was found to be normal. The Olympus pediatric video colonoscope was introduced into the rectum and advanced to the cecum. The cecum was identified by transillumination, palpation, and identification of ileocecal valve. Examination was performed. The scope was removed. He tolerated the procedure well and was returned to the recovery area in stable condition. FINDINGS: The terminal ileum was not examined. The visualized colonic mucosa was normal. The quality of the prep was good. At the hepatic flexure was a 3 mm sessile polyp, which was removed with biopsy forceps. In the lower colon at 20 cm was a 10 mm pedunculated polyp. This was removed with a snare and recovered via suction and a single hemostatic endoscopic clip was placed at the base because of the patient's need to return to anticoagulation. There was stein diverticulosis. Retroflexed examination showed small internal hemorrhoids. IMPRESSION: Colon polyps. RECOMMENDATION: 1. Follow up the biopsy results. 2. Advance diet. 3. Hold anticoagulation x48 hours because of 10 mm polypectomy. MD MARCO Miller/MODL / [id number] MTDD
[2024-12-26 03:33] VITALS: BP 157/67; PULSE 63; RESP 16; TEMP 36.3; O2SAT 95
[2024-12-26 07:24] VITALS: BP 139/79; PULSE 61; RESP 16; TEMP 36.7; O2SAT 97
[2024-12-26 07:26] LABS: Glucose, Whole Blood 207 mg/dL (60-115)
[2024-12-26 08:06] LABS: Hematocrit 33.9 % (42.0-52.0); Hemoglobin 11.0 g/dl (14.0-18.0); Mean Corpuscular HGB Conc 32.4 g/dl (31.0-36.0); Mean Corpuscular Hemoglobin 30.1 pg (27.0-33.0); Mean Corpuscular Volume 92.9 fL (80.0-98.0); NRBC Abs Auto 0.000 X10*3/uL (0.0-0.012); NRBC Pct Auto 0.0 /100WBC (0.0-0.2); Platelet Count 242 X10*3/uL (160-400); Red Blood Count 3.65 X10*6/uL (4.60-5.80); White Blood Count 7.9 X10*3/uL (4.8-10.8)
[2024-12-26 08:20] LABS: Anion Gap 10 (12-20); Blood Urea Nitrogen 14 mg/dL (9-16); Calcium 8.2 mg/dL (8.4-10.2); Carbon Dioxide 25 mmol/L (22-29); Chloride 109 mmol/L (96-108); Creatinine Clr Calc Pharmacy 75.4; Estimated Glomerular Filt Rate > 60; Potassium 4.0 mmol/L (3.3-5.1); Sodium 140 mmol/L (135-145)
--- NOTE | 2024-12-26 09:20 | PC.NURSE ---
Dr. Ortiz made aware via tiger text pt received PRN IV dilaudid, 30 minutes after administration pt ambulated in hallway. Pt ambulated about 15 to 20 feet before feeling dizzy. At this time pt sat down in chair and wheeled back to room. Pt was able to sit up in chair for about 30 mins before requesting to get back to bed. Per attempt to ambulate again.
--- NOTE | 2024-12-26 09:20 | HO.POSTANES ---
Post Anesthesia Evaluation Post Anesthesia Evaluation Date of Service: 12/26/24 Vital Signs: Vital Signs Temp Pulse Resp BP Pulse Ox O2 Del Method 12/26/24 07:24 98.1 F 61 16 139/79 97 Room Air 12/26/24 03:33 97.3 F 63 16 157/67 H 95 Room Air 12/25/24 23:55 97.9 F 172/68 H 12/25/24 22:38 63 196/84 H 12/25/24 22:38 196/84 H Anesthesia: Monitored Mental Status: Awake Pain Control: Satisfactory Nausea/Vomiting: None Hydration: Adequate Anesthesia-Related Issues: No Anes. Related Issues
--- NOTE | 2024-12-26 10:17 | PC.NURSE ---
Pt bladder scanned at 0819 for 432ml, pt voided 25ml at this time, MD Raman made aware. Pt declining straight cath at this time. also made aware pt appears more confused than yesterday, alert to self and place, but confused on situation. No new orders at this time.
[2024-12-26 11:35] LABS: Glucose, Whole Blood 190 mg/dL (60-115)
--- NOTE | 2024-12-26 11:54 | PC.NURSE ---
Per PT pt was inc of urine, bladder scanned post void residual was 350. No new orders at this time, pt denies any pain.
[2024-12-26 16:00] VITALS: BP 150/67; PULSE 65; RESP 18; TEMP 36.6; O2SAT 99
[2024-12-26 16:32] LABS: Glucose, Whole Blood 184 mg/dL (60-115)
--- NOTE | 2024-12-26 16:45 | HO.PM.IMPN ---
Subjective Subjective Date of Service: 12/26/24 Interval History: no new complaints Review of Systems Review of Systems: Yes all other systems are reviewed and are negative Physical Exam Exam: Exam: Appearance: Alert.? Oriented X2-3 ,easily directable.? cvs: [id number], [id number]. res: clear to auscultation ,no rhonchii or wheezing abd: no rebound or guarding ,nt, bs present. ext pulses present , no cyanosis . neuro: axo3 , nonfocal. Vital Signs: Vital Signs: Last Vital Signs Temp 97.8 F 12/26/24 16:00 Pulse 65 12/26/24 16:00 Resp 18 12/26/24 16:00 BP 150/67 H 12/26/24 16:00 Pulse Ox 99 12/26/24 16:00 O2 Del Method Room Air 12/26/24 16:00 BMI result Body Mass Index 23.3 Objective Data Active Medications Acetaminophen (Acetaminophen 325 Mg Tablet) 650 mg PO Q6H PRN PRN Reason: Pain, Mild 1-3,fever,headache Last Admin: 12/20/24 12:58 Dose: 650 mg Documented By: MADIHA Comments: OK to give per Dr. Escalera Atorvastatin Calcium (Atorvastatin Calcium 80 Mg Tablet) 80 mg PO BEDTIME [facility] Last Admin: 12/25/24 22:38 Dose: 80 mg Documented By: SINA Calcium Carbonate (Calcium Carbonate 750 Mg Tab.Chew) 750 mg PO Q4H PRN PRN Reason: Heartburn Cyanocobalamin (Cyanocobalamin (Vitamin B-12) 500 Mcg Tablet) 500 mcg PO DAILY [facility] Last Admin: 12/26/24 08:37 Dose: 500 mcg Documented By: LINDSEY Dextrose (Dextrose 50 % 25 Gm/50 Ml Syringe) 25 gm IVPUSH Q15M PRN; Protocol PRN Reason: per Hypoglycemia Standing Ord. Gabapentin (Gabapentin 100 Mg Capsule) 100 mg PO BID [facility] Last Admin: 12/26/24 08:37 Dose: 100 mg Documented By: LINDSEY Glucose (Glucose Gel 15 Gm Gel..Gram.) 15 gm PO Q15M PRN; Protocol PRN Reason: per Hypoglycemia Standing Ord. Insulin Human Lispro (Insulin Lispro 100 Unit/Ml 3 Ml Vial) 0 unit SUBCUT QIDACHS [facility]; Protocol Last Admin: 12/26/24 16:40 Dose: 2 unit Documented By: LINDSEY Lisinopril (Lisinopril 5 Mg Tablet) 5 mg PO BEDTIME [facility]; Protocol Last Admin: 12/25/24 22:38 Dose: 5 mg Documented By: SINA Magnesium Hydroxide (Milk Of Magnesia 30 Ml Oral.Susp) 30 ml PO DAILY PRN PRN Reason: Constipation Melatonin (Melatonin 3 Mg Tablet) 6 mg PO BEDTIME PRN PRN Reason: Insomnia Metoprolol Tartrate (Metoprolol Tartrate 25 Mg Tablet) 25 mg PO BID [facility]; Protocol Last Admin: 12/26/24 08:36 Dose: 25 mg Documented By: LINDSEY Sodium Biphosphate/Sodium Phosphate (Sodium Phosphate,[place]-Dibasic 133 Ml Enema) 133 ml ME ONCE PRN PRN Reason: Poor Colonoscopy Prep Results Last Admin: 12/25/24 12:11 Dose: 133 ml Documented By: KASANDRA Sodium Chloride (0.9 % Sodium Chloride Flush 3 Ml Syringe) 3 ml IVFLUSH QSHIFT [facility] Last Admin: 12/26/24 08:47 Dose: Not Given Documented By: LINDSEY Non-Admin Reason: No Access Tamsulosin HCl (Tamsulosin Hcl 0.4 Mg Capsule) 0.8 mg PO DAILY [facility] Last Admin: 12/26/24 08:36 Dose: 0.8 mg Documented By: LINDSEY Trazodone HCl (Trazodone Hcl 50 Mg Tablet) 50 mg PO BEDTIME [facility] Last Admin: 12/25/24 22:39 Dose: 50 mg Documented By: SINA Vitamin D (Cholecalciferol (Vitamin D3) 25 Mcg Tablet) 50 mcg PO DAILY [facility] Last Admin: 12/26/24 08:37 Dose: 50 mcg Documented By: LINDSEY Labs 12/26/24 07:54 12/26/24 07:54 Labs: Laboratory Results - last 24 hr 12/25/24 12/25/24 12/26/24 21:12 22:57 07:22 MCV MCH MCHC RDW Plt Count MPV Absolute Nucleated RBC Nucleated RBC % (auto) Anion Gap Estim Creat Clear Calc Estimated GFR POC Glucose 234 H 249 H 207 H Random Glucose Calcium 12/26/24 12/26/24 12/26/24 07:54 11:30 16:28 MCV 92.9 MCH 30.1 MCHC 32.4 RDW 13.5 Plt Count 242 D MPV 10.9 Absolute Nucleated RBC 0.000 Nucleated RBC % (auto) 0.0 Anion Gap 10 L Estim Creat Clear Calc 75.4 Estimated GFR > 60 POC Glucose 190 H 184 H Random Glucose 215 H Calcium 8.2 L Assessment and Plan (1) Type 2 diabetes mellitus with unspecified complications: Status: Acute Plan 84M PMH recurrent UTI, dementia, paroxysmal AFib on Eliquis, hypertension, GERD, depression, diabetes presented with altered mental status and weakness found to have urinary tract infection and suspicious colonic mass Acute metabolic encephalopathy due to urinary tract infection urine culture grew serratia complete rocephin course Possible colonic mass GI appreciated, holding eliquis, plan for scope today tuesdaydec 25 Diarrhea negative stool studies Paroxysmal AFib with RVR Holding Eliquis for scope Lopressor 25mg Bid added - hr improved DVT prophylaxis-heparin subQ Full code reason for continued hospitalization:plan for scope Quality Stroke Does the patient have a stroke diagnosis?: No VTE Prior VTE?: No VTE Risk Level:: Medical - moderate - high VTE Device Contraindication: Treatment Not Indicated VTE Drug Contraindication: N/A - Med Ordered
[2024-12-26 19:53] LABS: Glucose, Whole Blood 226 mg/dL (60-115)
[2024-12-26 20:00] VITALS: BP 140/63; PULSE 72; RESP 16; TEMP 36.4; O2SAT 97
[2024-12-27 04:00] VITALS: BP 152/68; PULSE 51; RESP 18; TEMP 36.1; O2SAT 98
[2024-12-27 07:32] VITALS: BP 166/90; PULSE 68; RESP 18; TEMP 36.2; O2SAT 99
[2024-12-27 07:49] LABS: Glucose, Whole Blood 168 mg/dL (60-115)
[2024-12-27] MEDS: 0.9 % Sodium Chloride Flush 3 ML SYRINGE IVFLUSH ×2 (08:17→15:11)
[2024-12-27 11:45] LABS: CDiff Gene PCR NEGATIVE (Negative)
[2024-12-27 11:45] LABS: Glucose, Whole Blood 216 mg/dL (60-115)
--- NOTE | 2024-12-27 13:43 | P.DS_ITS ---
DS: Providers Provider Date of Service: 12/27/24 Date of admission: 12/19/24 19:49 Date of discharge: 12/27/24 Primary care physician: Unknown Physician Consults: 12/19/24 20:58 Consult to Gastroenterology Routine Consulting Provider: Edward Damian Reason for consultation: ?colonic mass on CT 12/19/24 21:57 Consult to Infectious Diseases Routine Consulting Provider: [facility] Reason for consultation: recurrent UTIs Attending physician on discharge: Phani Raman Discharging clinician: Phani Raman DS: Diagnosis Discharge Diagnosis (1) Type 2 diabetes mellitus with unspecified complications: Status: Acute DS: Summary Hospital Course Hospital Course: hpi: 84-year-old male with a past medical history significant for recurrent UTIs, dementia, AFib on Eliquis, hypertension, GERD, depression and type 2 diabetes, who presented to the ED due to altered mental status, hypotension, weakness, diarrhea, nausea, vomiting lethargy and abdominal pain. The patient's daughter provided the history via phone to the ED provider as the patient was unable to provide a history. She reported that he has been declining mentally over the past 3 weeks adn has had significant diarrhea since taking abx for frequent UTIs. Hospital course: 84M PMH recurrent UTI, dementia, paroxysmal AFib on Eliquis, hypertension, GERD, depression, diabetes presented with altered mental status(acute metabolic encephalopathy) and weakness found to have urinary tract infection and suspicious colonic mass: Patient was started on IV antibiotics, mental status seems to be improved to baseline. Completed antibiotics. Going to the rehab. Possible colonic mass: GI Evaluated with the patient-Eliquis was placed on hold and had colonoscopy and impression is: Colonoscopy showed 2 polyps, removed,no tumor,pandiverticulosis. Diet advanced, patient tolerating well, recommended to start Eliquis today, follow up biopsy results outpatient. Patient has chronic diarrhea: as per daughter -seems ch diarrahe, Stool studies negative including C diff. :added loperamide. 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 Nonemergent MRI is recommended. above is d/w with oncology dr sarabia recomended to follow up Gi outpatient with above ct findings and above wokrup. plan: complete ceftin 500 mg po bid x1 more days Follow up with GI for colonoscopy biopsy results. consider outpatient mri for abd pancreatic lesion as above. Added loperamide p.r.n. for diarrhea. Assessment and plan coordination time spent 45 minute-above management discussed with the patient and his daughter in detail length-they both understand and in agreement with the above plan. All questions answered. Time Attestation Total time managing care of this patient today: 45 mintues. Discharge Coordination Time (in mins): 45min Quality: Safe Use of Opioids Does Pt have an Active Cancer Diagnosis on the Problem List?: No Quality: Stroke Does the patient have a stroke diagnosis?: No Physical Exam Exam: Exam: Appearance: Alert.? Oriented X3 ,easily directable.? cvs: [id number], [id number]. res: clear to auscultation ,no rhonchii or wheezing abd: no rebound or guarding ,nt, bs present. ext pulses present , no cyanosis . neuro: axo3 , nonfocal. Vital Signs: Vital Signs: Last Vital Signs Temp 97.2 F 12/27/24 07:32 Pulse 68 12/27/24 07:32 Resp 18 12/27/24 07:32 BP 166/90 H 12/27/24 07:32 Pulse Ox 99 12/27/24 07:32 O2 Del Method Room Air 12/27/24 07:32 BMI result Body Mass Index 23.3 DS: Data Data Completed and Pending Completed studies during hospitalization [Text1]: Pending at discharge 12/25/24 14:42 Surgical [PTH] Routine Labs on day of discharge: Laboratory Results - last 24 hr 12/26/24 12/26/24 12/27/24 16:28 19:44 07:34 POC Glucose 184 H 226 H 168 H C. difficile Tox B Gene 12/27/24 12/27/24 10:15 11:40 POC Glucose 216 H C. difficile Tox B Gene NEGATIVE Imaging Chest x-ray: Radiologist's impression: ITS Impressions Abdomen/Pelvis CT 12/19/24 15:22 IMPRESSION: 1. Focal wall thickening of the hepatic flexure of the colon. Findings are suspicious for a mass lesion. Colonoscopy is suggested. 2. Colonic diverticulosis without evidence of diverticulitis. 3. 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 Nonemergent MRI is recommended. Head CT 12/19/24 15:22 IMPRESSION: No acute intracranial abnormality. Stable chronic findings as discussed. Discharge Plan Discharge Anticipated Discharge Date/Time: 12/27/24 13:31 Patient Disposition: [facility] Discharge Diagnosis: uti, colonic polyp Referrals: [facility] [Outside] - 1 Week Shellie Moser MD [Physician, Internal Medicine] - 1 Week Edward Damian MD [Physician, Gastroenterology] - 1 Week Discharge Medications: New metoprolol tartrate 25 mg Tablet 25 mg PO BID Qty: 1 0RF Protocol: Hold for SBP/HR < HOLD for SBP < : 90 HOLD for HR < : 60 cefuroxime axetil 500 mg tablet 500 mg PO BID Qty: 2 0RF Continued trazodone 50 mg Tablet 50 mg PO BEDTIME cyanocobalamin (vitamin B-12) [Vitamin B-12] 500 mcg Tablet 500 mcg PO DAILY cholecalciferol (vitamin D3) [Vitamin D3] 50 mcg (2,000 unit) Capsule 50 mcg PO DAILY gabapentin 100 mg Capsule 100 mg PO BID Eliquis 5 mg Tablet 5 mg PO BID Jardiance 10 mg Tablet 10 mg PO DAILY acetaminophen 325 mg Tablet 650 mg PO BID PRN (Reason: Fever Or Pain) lisinopril 5 mg Tablet 5 mg PO BEDTIME Protocol: Hold for SBP< HOLD for SBP < : 110 atorvastatin 80 mg tablet 80 mg PO BEDTIME (DME) FreeStyle Test Strip See Rx Instructions .ROUTE .MEDSUPPLY Qty: 50 11RF Rx Instructions: As directed (DME) blood-glucose meter [FreeStyle Lite Meter] Kit See Rx Instructions .ROUTE .MEDSUPPLY Qty: 1 0RF Rx Instructions: As directed (DME) lancets [FreeStyle Lancets] 28 gauge misc See Rx Instructions .ROUTE .MEDSUPPLY Qty: 100 11RF Rx Instructions: As directed tamsulosin 0.4 mg capsule 0.8 mg PO DAILY Discharge Orders: Discharge Order (Routine); Ordered 12/27/24 Ordered By: Phani Raman Diet: Advance to usual diet Activity on Discharge: As tolerated Stand Alone Forms: Patient Portal Discharge page Print Language: [place]an Care Plan Goals: as below. Health Concerns: complete ceftin 500 mg po bid x1 more days Follow up with GI for colonoscopy biopsy results. 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 Nonemergent MRI is recommended. Added loperamide p.r.n. for diarrhea. Plan of Treatment: As above. Assessment: As above.
[2024-12-27 14:05] LABS: E. coli EAEC Not Detected (Not Detect.); E. coli EPEC Not Detected (Not Detect.); E. coli ETEC Not Detected (Not Detect.); E. coli STEC Not Detected (Not Detect.); Shigella sp./EIEC Not Detected (Not Detect.)
--- NOTE | 2024-12-27 14:39 | P.PNIM_ITS ---
Subjective Subjective Date of Service: 12/27/24 Interval History: uti Review of Systems no new c/o diarrahe seems ch Review of Systems: Yes all other systems are reviewed and are negative Physical Exam 2 Exam: Exam: Appearance: Alert.? Oriented X3 ,easily directable.? cvs: rrr, [id number]. res: clear to auscultation ,no rhonchii or wheezing abd: no rebound or guarding ,nt, bs present. ext pulses present , no cyanosis . neuro: axo3 , nonfocal. Vital Signs: Vital Signs: Last Vital Signs Temp 97.2 F 12/27/24 07:32 Pulse 68 12/27/24 07:32 Resp 18 12/27/24 07:32 BP 166/90 H 12/27/24 07:32 Pulse Ox 99 12/27/24 07:32 O2 Del Method Room Air 12/27/24 07:32 BMI result Body Mass Index 23.3 Objective Data Active Medications Acetaminophen (Acetaminophen 325 Mg Tablet) 650 mg PO Q6H PRN PRN Reason: Pain, Mild 1-3,fever,headache Last Admin: 12/20/24 12:58 Dose: 650 mg Documented By: MADIHA Comments: OK to give per Dr. Escalera Atorvastatin Calcium (Atorvastatin Calcium 80 Mg Tablet) 80 mg PO BEDTIME [facility] Last Admin: 12/26/24 21:10 Dose: 80 mg Documented By: LEFEBAASHISH Calcium Carbonate (Calcium Carbonate 750 Mg Tab.Chew) 750 mg PO Q4H PRN PRN Reason: Heartburn Cyanocobalamin (Cyanocobalamin (Vitamin B-12) 500 Mcg Tablet) 500 mcg PO DAILY [facility] Last Admin: 12/27/24 08:16 Dose: 500 mcg Documented By: DAKOTA Dextrose (Dextrose 50 % 25 Gm/50 Ml Syringe) 25 gm IVPUSH Q15M PRN; Protocol PRN Reason: per Hypoglycemia Standing Ord. Enoxaparin Sodium (Enoxaparin Sodium 80 Mg/0.8 Ml Syringe) 80 mg SUBCUT Q12H [facility] Last Admin: 12/27/24 09:08 Dose: 80 mg Documented By: DAKOTA Gabapentin (Gabapentin 100 Mg Capsule) 100 mg PO BID [facility] Last Admin: 12/27/24 08:16 Dose: 100 mg Documented By: DAKOTA Glucose (Glucose Gel 15 Gm Gel..Gram.) 15 gm PO Q15M PRN; Protocol PRN Reason: per Hypoglycemia Standing Ord. Insulin Human Lispro (Insulin Lispro 100 Unit/Ml 3 Ml Vial) 0 unit SUBCUT QIDACHS [facility]; Protocol Last Admin: 12/27/24 12:10 Dose: 4 unit Documented By: DAKOTA Lisinopril (Lisinopril 5 Mg Tablet) 5 mg PO BEDTIME [facility]; Protocol Last Admin: 12/26/24 21:09 Dose: 5 mg Documented By: NEYDA Loperamide HCl (Loperamide Hcl 2 Mg Capsule) 2 mg PO Q4H PRN PRN Reason: Diarrhea Magnesium Hydroxide (Milk Of Magnesia 30 Ml Oral.Susp) 30 ml PO DAILY PRN PRN Reason: Constipation Melatonin (Melatonin 3 Mg Tablet) 6 mg PO BEDTIME PRN PRN Reason: Insomnia Metoprolol Tartrate (Metoprolol Tartrate 25 Mg Tablet) 25 mg PO BID [facility]; Protocol Last Admin: 12/27/24 08:16 Dose: 25 mg Documented By: DAKOTA Sodium Biphosphate/Sodium Phosphate (Sodium Phosphate,[place]-Dibasic 133 Ml Enema) 133 ml [place] ONCE PRN PRN Reason: Poor Colonoscopy Prep Results Last Admin: 12/25/24 12:11 Dose: 133 ml Documented By: KASANDRA Sodium Chloride (0.9 % Sodium Chloride Flush 3 Ml Syringe) 3 ml IVFLUSH QSHIFT [facility] Last Admin: 12/27/24 08:17 Dose: 3 ml Documented By: DAKOTA Tamsulosin HCl (Tamsulosin Hcl 0.4 Mg Capsule) 0.8 mg PO DAILY [facility] Last Admin: 12/27/24 08:16 Dose: 0.8 mg Documented By: DAKOTA Trazodone HCl (Trazodone Hcl 50 Mg Tablet) 50 mg PO BEDTIME [facility] Last Admin: 12/26/24 21:10 Dose: 50 mg Documented By: NEYDA Vitamin D (Cholecalciferol (Vitamin D3) 25 Mcg Tablet) 50 mcg PO DAILY [facility] Last Admin: 12/27/24 08:16 Dose: 50 mcg Documented By: DAKOTA Labs 12/26/24 07:54 12/26/24 07:54 Labs: Laboratory Results - last 24 hr 12/26/24 12/26/24 12/27/24 16:28 19:44 07:34 POC Glucose 184 H 226 H 168 H C. difficile Tox B Gene 12/27/24 12/27/24 10:15 11:40 POC Glucose 216 H C. difficile Tox B Gene NEGATIVE Assessment and Plan (1) Type 2 diabetes mellitus with unspecified complications: Status: Acute Plan 84M PMH recurrent UTI, dementia, paroxysmal AFib on Eliquis, hypertension, GERD, depression, diabetes presented with altered mental status and weakness found to have urinary tract infection and suspicious colonic mass Acute metabolic encephalopathy due to urinary tract infection urine culture grew serratia complete rocephin course Possible colonic mass GI appreciated, holding eliquis, plan for scope today tuesdaydec 25 Diarrhea negative stool studies Paroxysmal AFib with RVR Holding Eliquis for scope Lopressor 25mg Bid added - hr improved DVT prophylaxis-heparin subQ Full code reason for continued hospitalization:plan for scope Quality Stroke Does the patient have a stroke diagnosis?: No VTE Prior VTE?: No VTE Risk Level:: Medical - moderate - high VTE Device Contraindication: Treatment Not Indicated VTE Drug Contraindication: N/A - Med Ordered
[2024-12-27 15:22] VITALS: BP 167/74; PULSE 61; RESP 18; TEMP 36.7; O2SAT 98
--- NOTE | 2024-12-27 15:31 | MHC.CM.PN ---
Per MD rounds patient is medically cleared to discharge today. CM spoke with patient's dtr/HCP Melina today re DC plan. Her [facility] for STR is [facility]. A bed offer received from [facility] has been accepted. Authorization has been received. Transportation is booked for 5pm peanut picker via BLS. Patients dtr Melina was notified of the transport time via . CM contact info provided for any questions/concerns.
[2024-12-27 16:10] LABS: Glucose, Whole Blood 178 mg/dL (60-115)
== END 2024-12-27 17:10 | disposition skilled nursing facility (03) | DRG 689 ==
LOC: HO.ED 19:39 → HO.EDOVER 19:52 → HO.S3 12-20 13:57
PROVIDERS: Internal Medicine; Internal Medicine Gastroenterology; Physician Assistant; Admitting Provider Hospitalist; Emergency Provider Emergency Medicine; Visit Provider Internal Medicine
PROC: 0DJD8ZZ Inspection of Lower Intestinal Tract, Via Natural or Artificial Opening Endoscopic (ICD-10-PCS; CPT 45378; principal; 2024-12-25 14:40)
DX: N39.0 Urinary tract infection, site not specified (principal); G93.41 Metabolic encephalopathy; E11.51 Type 2 diabetes mellitus with diabetic peripheral angiopathy without gangrene; K63.5 Polyp of colon; R19.7 Diarrhea, unspecified; R93.5 Abnormal findings on diagnostic imaging of other abdominal regions, including retroperitoneum; I48.0 Paroxysmal atrial fibrillation; F03.90 Unspecified dementia, unspecified severity, without behavioral disturbance, psychotic disturbance, mood disturbance, and anxiety; K57.30 Diverticulosis of large intestine without perforation or abscess without bleeding; I10 Essential (primary) hypertension; Z87.440 Personal history of urinary (tract) infections; Z79.01 Long term (current) use of anticoagulants; Z79.899 Other long term (current) drug therapy
CPT/HCPCS: 36415; 70450; 74177; 80048; 80053; 80076; 81001; 82140; 82947; 83605; 83690; 83735; 84484; 85025; 85027; 85610; 87040; 87086; 87088; 87186; 87493; 87507; 88305; 93005; 97162; 97530; 99285; J0696; J1644; J1650; J1805; J2371; J2405; Q9967

== ENCOUNTER → 2024-12-19 14:03 | Outpatient (BNV) | payer OTHER, SELFPAY | PROVIDERS: Emergency Provider Emergency Medicine; Visit Provider Internal Medicine Cardiovascular Disease | DX: I49.3 Ventricular premature depolarization (principal) | CPT/HCPCS: 93010 ==

== ENCOUNTER → 2024-12-19 14:03 | Outpatient (BNV) | payer OTHER, SELFPAY | PROVIDERS: Emergency Provider Emergency Medicine; Visit Provider Radiology Diagnostic Radiology | DX: K63.89 Other specified diseases of intestine (principal); K57.30 Diverticulosis of large intestine without perforation or abscess without bleeding; K86.2 Cyst of pancreas; R41.82 Altered mental status, unspecified | CPT/HCPCS: 70450; 74177 ==

== ENCOUNTER 2024-12-19 19:49 | Outpatient (BNV) | payer OTHER, SELFPAY | END 2024-12-25 12:59 | PROVIDERS: Admitting Provider Hospitalist; Emergency Provider Emergency Medicine; Visit Provider Internal Medicine Cardiovascular Disease | DX: I49.1 Atrial premature depolarization (principal) | CPT/HCPCS: 93010 ==

== ENCOUNTER → 2024-12-19 19:49 | Outpatient (BNV) | payer OTHER, SELFPAY | PROVIDERS: Admitting Provider Hospitalist; Emergency Provider Emergency Medicine; Visit Provider Internal Medicine | DX: E11.8 Type 2 diabetes mellitus with unspecified complications (principal) | CPT/HCPCS: 99223; 99231; 99232 ==

== ENCOUNTER → 2024-12-19 19:49 | Outpatient (BNV) | payer OTHER, SELFPAY | PROVIDERS: Admitting Provider Hospitalist; Emergency Provider Emergency Medicine; Visit Provider Internal Medicine | DX: N39.0 Urinary tract infection, site not specified (principal); D72.829 Elevated white blood cell count, unspecified | CPT/HCPCS: 99222 ==

== ENCOUNTER 2025-02-01 09:21 | Inpatient (IN) | payer OTHER, SELFPAY ==
--- OUTSIDE RECORDS SUMMARY | 2024-03-08 06:00 | XMS_ITS ---
Author Organization [facility] Address [address] [facility] [place] [address] Care Team Providers Care Casino Attendant Name Role Phone Purvi STEVENS, Ulisses Primary Care Provider U Hipolito Liu Unavailable [phone] Reeves Encounters Encounter Location Date Provider Diagnosis [address] [address] 03/08/2024 Hipolito Mathis Plan Of Treatment No Information Progress Notes * Cathi GILisDOB:1940 (84 yo M)Acc No.[id number]:03/08/2024 Progress Note Patient: Rey CAMARA Provider: Berenice Mathis DPM :1940 A ge:83 Y S ex:Male Date:03/08/2024 Address:[address] [id number] Pcp:Ulisses Loja MD Subjective: * Chief Complaints: * [address] Reeves. * Medical History: Objective: * Vitals: Assessment: Plan: * Treatment: * Images: * The named appointment provid er may or may not be the originator of this progress note, and it is not deemed complete until electronically signed by the appointment provider. Sign off status: Pending * Provider: Berenice Mathis DPM Date: 05/09/2023 Generated for Laurence rankin/Dinesh/eTransmitting on: 04/03/2024 10:20 AM EST
--- OUTSIDE RECORDS SUMMARY | 2024-10-18 06:15 | XMS_ITS ---
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 . .; Duration: . Active oxyBUTYnin Not-Takin g Ammonium Lactate 12 % 1 application to affected area Externally to feet Twice a day; Duration: 30 days Active Omeprazole Active glipiZIDE Active Haloperidol Active Atorvastatin Calcium 80 MG 1 tablet Orally Once a day; Duration: 30 day(s) Active Gabapentin 100 MG 1 capsule Orally Onc e a day; Duration: 30 day(s) Active Lisinopril Active amLODIPine Besylate 5 MG 1 tablet Orally Once a day; Duration: 30 day(s) Active Encounters En[facility] Date [facility] [address] [place] [id number] 10/18/2024 Hipolito Mathis Plan Of Treatment No Information Progress Notes * Cathi GILisDOB:1940 (84 yo M)Acc No.[id number]:10/18/2024 Progress Note Patient: N JANETTE, Rey Provider: Berenice Mathis DPM :1940 A ge:84 Y S ex:Male Date:10/18/2024 Address:[address] [id number] Pcp:Ulisses Loja MD Subjective: * Chief Complaints: * * Medical History: * Medications: T aking amLODIPine Besylate 5 MG Tablet 1 tablet Orally Once a day , Taking Atorvastatin Calcium 80 MG Tablet 1 tablet Orally Once a day , Taking Gabapentin 100 MG Capsule 1 capsule Orally Once a day , Taking glipiZIDE , Taking Haloperidol , Taking Lisinopril , Taking Omeprazole , Taking Ammonium Lactate 12 % Cream 1 application to affected area Externally to feet Twice a day , Taking zzzCompression Stockings 20-30mm Hg 1 pair closed toe- knee high . . . 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 Sign off status: Pending * Provider: Berenice Mathis DPM Date: 0 10/18/2024 Generated for Laurence rankin/Dinesh/Manolo on: 04/03/2024 10:20 AM EST
--- OUTSIDE RECORDS SUMMARY | 2024-12-25 10:00 | XMS_ITS ---
Author Organization [facility] Address [address] [place] [id number] Care Team Providers Care Pastoral Assistant Name Role Phone Shellie Moser Primary Care Provider Edward Rivera [phone] REASON FOR VISIT abn ct scan, colon Encounters Encounter Location Date Provider [place] [facility] [place] [address] [id number] 12/25/2024 Edward Damian Plan Of Treatment Next Appt Details Provider Name:Arben montiel , 06/13/2025 03:35:00 PM, [address], [address], [place], [address], Progress Notes * PENELOPE SCHMIDARMIDAOB:1940 (84 yo M)Acc No.[id number]:12/25/2024 COLON WITH MAC Patient: JASSI CAMARA Provider: Yessica Damian MD :1940 A ge:84 Y S ex:Male Date:12/25/2024 Address:[address] [place], [place] [id number] Pcp:Shellie Moser Subjective: * Chief Complaints: * A bn ct scan, colon Billing Information: * Procedure Codes: * The named appointment provid er may or may not be the originator of this progress note, and it is not deemed complete until electronically signed by the appointment provider. Sign off status: Pending * Provider: Yessica Damian MD Date: Generated for Laurence rankin/Dinesh/eTransmitting on: 04/03/2024 10:21 AM EST
[2025-02-01] VITALS (11 sets, daily range): BP systolic 144–219; BP diastolic 34–98; PULSE 49–108; RESP 13–18; TEMP 36.8–36.9; O2SAT 96–98; BMI 26.1
--- NOTE | ~2025-02-01 | XR_ITS ---
EXAMINATION: XR CHEST CLINICAL INFORMATION: Fall, weakness COMPARISON: None available. TECHNIQUE: Frontal view of the chest was obtained. FINDINGS: [Slightly rotated positioning. Slightly lesser prominence, related to positioning/technique. Heart size within normal limits. There is interstitial prominence in the right greater than left lung. No confluent consolidation. No effusion. No pneumothorax. No acute osseous findings seen. XR/XR chest 1V IMPRESSION: Interstitial prominence in bilateral lungs, nonspecific. This could reflect inflammatory/infectious process in the appropriate clinical circumstance. Electronically signed by: Aric Wade MD 02/01/2025 12:54 PM [facility]
--- NOTE | ~2025-02-01 | CT_ITS ---
EXAMINATION: CT ABDOMEN AND PELVIS WITH CONTRAST CLINICAL INFORMATION: Weakness, diarrhea. 84-year-old male. COMPARISON: 12/19/2024, 07/15/2019. TECHNIQUE: Multidetector volumetric images were obtained from the superior aspect of the liver through the pubic symphysis following administration 85 mL of Omnipaque 350 intravenous contrast. Sagittal and coronal reformatted images were obtained on the technologist's workstation. Oral contrast: No This CT examination was performed using dose optimization techniques as appropriate, variously including the following: *Automated exposure control *Adjustment of mA and/or kV according to patient size (this includes techniques or standardized protocols for targeted exams where dose is matched to indication/reason for exam; i.e. extremities or head) *Use of iterative reconstruction technique FINDINGS: LUNG BASES: There is mild dependent atelectasis present. The lung bases are otherwise clear. There is mild cardiac enlargement. There is a small type I hiatus hernia. There is no pericardial effusion. LIVER, GALLBLADDER, AND BILIARY TREE: The liver is normal in size, shape, and attenuation. No focal hepatic lesion or biliary ductal dilatation is present. The gallbladder is not seen and likely surgically absent. PANCREAS: There is 1.9 x 2.0 cm cystic lesion in the head of the pancreas medially, unchanged from 12/19/2024. There is mild prominence of the main pancreatic duct. Remainder of the pancreas is normal. SPLEEN: Unremarkable. ADRENAL GLANDS: Unremarkable. KIDNEYS AND URETERS: The kidneys are normal in size, shape, and attenuation. No hydronephrosis, hydroureter, or calculi seen. No perinephric stranding. There are bilateral renal cysts. There is mild fullness of both collecting systems, and both ureters, similar to the recent prior. Retroaortic left renal vein. BLADDER: Mildly thickened urinary bladder wall with several small bladder diverticula. GASTROINTESTINAL TRACT: There is diffuse colonic diverticulosis. There is no focal wall thickening or inflammation. A previously questioned mass in the ascending colon is not definitively identified on the current examination. There is no rectal abnormality. The small bowel is normal in caliber and course. No wall thickening, inflammation, or dilatation. Small type I hiatus hernia. The stomach is otherwise grossly normal. Normal duodenal sweep. No CT evidence of acute appendicitis. ABDOMINAL WALL: No mass or hernia is present. LYMPH NODES: No abnormal lymphadenopathy is present. VASCULAR: Moderate diffuse calcification of the aorta and iliac arteries. There is no aneurysm. PELVIC VISCERA: Possible TURP defect present. Prostate mildly enlarged. OSSEOUS STRUCTURES: No suspicious lytic or blastic bone lesion. 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 Degenerative changes throughout the spine.. CT/CT abdomen pelvis w IV con IMPRESSION: 1. No acute findings in the abdomen or pelvis identified. 2. Severe colonic diverticulosis without CT evidence of acute diverticulitis. Previously questioned focal wall thickening of the hepatic flexure of the colon is not well appreciated on today's exam. This may have represented transient peristalsis. 3. No change in the 2.2 cm cystic lesion in the head of the pancreas. Nonemergent MRI again recommended for definitive characterization. 4. Mild diffuse wall thickening of the urinary bladder with numerous diverticula, suggesting chronic outlet obstruction. 5. Additional ancillary findings as discussed in the body of the report. Electronically signed by: Rigoberto Marquez MD 02/01/2025 12:18 PM [facility]
--- NOTE | ~2025-02-01 | CT_ITS ---
EXAMINATION: CT CERVICAL SPINE WITHOUT CONTRAST CLINICAL INFORMATION: Fall COMPARISON: CT 12/05/2024 TECHNIQUE: Axial imaging. Sagittal and coronal reconstructions. This CT examination was performed using dose optimization techniques as appropriate, variously including the following: *Automated exposure control *Adjustment of mA and/or kV according to patient size (this includes techniques or standardized protocols for targeted exams where dose is matched to indication/reason for exam; i.e. extremities or head) *Use of iterative reconstruction technique FINDINGS: Craniocervical and atlantoaxial articulation is maintained. Predens space is maintained. No evidence of acute fracture or traumatic subluxation. No vertebral compression deformity seen. Multilevel disc degeneration, more prominent findings of moderate-severe disc degeneration at C3-4, C4-5, C5-6 multilevel facet degeneration. No high-grade central bony canal narrowing. No suspicious bony lesion. No prevertebral soft tissue swelling. No suspicious thyroid findings. Biapical pleural parenchymal scarring. CT/CT cervical spine wo IV con IMPRESSION: No CT evidence of acute fracture or traumatic subluxation. Moderate-severe cervical spondylosis. Fleischner guidelines were followed. Electronically signed by: Aric Wade MD 02/01/2025 12:17 PM [facility]
--- NOTE | ~2025-02-01 | CT_ITS ---
EXAMINATION: CT HEAD WITHOUT CONTRAST CLINICAL INFORMATION: Fall COMPARISON: 12/31/2024 TECHNIQUE: Contiguous axial imaging was performed from the skull base to vertex without intravenous administration of contrast. This CT examination was performed using dose optimization techniques as appropriate, variously including the following: *Automated exposure control *Adjustment of mA and/or kV according to patient size (this includes techniques or standardized protocols for targeted exams where dose is matched to indication/reason for exam; i.e. extremities or head) *Use of iterative reconstruction technique FINDINGS: There is no acute ischemic change. Again seen is chronic small infarct in the region of the basal ganglia, bilaterally. There are periventricular hypodensities that are mild to moderate. There is mild generalized atrophy. There is no intracranial hemorrhage. There is no mass-effect or midline shift. Basal cisterns and ventricles are within normal limits for age/cerebral volume. Orbits are symmetrical and unremarkable. Paranasal sinuses and mastoid air cells are pneumatized. There are no bony abnormalities. CT/CT head/brain wo IV con IMPRESSION: No acute intracranial abnormality. Stable chronic changes. Electronically signed by: Kaleb Johns MD 02/01/2025 12:13 PM [facility]
--- NOTE | 2025-02-01 09:40 | ECG_ITS ---
Test Reason : FALL Blood Pressure : */* mmHG Vent. Rate : 71 BPM Atrial Rate : * BPM P-R Int : * ms QRS Dur : 88 ms QT Int : 396 ms P-R-T Axes : * -2 1 degrees QTcB Int : 430 ms Normal sinus rhythm Premature atrial complexes Possible Anterior infarct , age undetermined Abnormal ECG When compared with ECG of 25-Dec-2024 13:14, No significant changes seen Referred By: Arin Johnson Electronically Signed By: KATIA SIMON
--- NOTE | 2025-02-01 09:54 | ED.FALL ---
HPI - Fall General Chief Complaint: Fall Stated Complaint: FALL LAST NOC/UNK TIME,FOUND NEXT TO BED,LLE PAIN Time Seen by Provider: 02/01/25 09:39 Source: patient, EMS and old records reviewed Mode of arrival: ambulatory Limitations: altered mental status History of Present Illness ED Provider: BAKARI HAWKINS Narrative: 84-year-old male with past medical history of hyperlipidemia, dementia, AFib on Eliquis, UTI, chest pain, hypertension, diabetes, peripheral vascular disease who presents with complaint of recurrent falls over the last week. He has been staying with his daughter for 1 week, no GI bleeding reported. The same they found him on the floor of his bedroom around 08:00 he tells me he had a really bad night and people kept telling him what to do and he did not feel like doing. He states he was not injured. The family told the EMS that his bedroom was in fact pulled apart and destroyed. He has no obvious trauma on exam. He is confused. He was admitted here back in December of 2024 for chronic diarrhea, cystic lesion pancreatic head family given his dementia wants conservative management only, found to have UTI at that time was prescribed Ceftin he was discharged to rehab. It looks like he just returned home a week ago. complaint: other (It is unclear if he fell but he was found on the floor) Onset (ago): hour(s) (It is unclear when this occurred but) Fall from: other Fall witnessed: no Place fall occurred: home Loss of consciousness: unsure Prolonged down time: unclear Symptoms prior to fall: none Context: other (He adamantly denies injury) Associated symptoms (after fall): denies Related Data Home Medications ?Medication ?Instructions ?Recorded ?Confirmed tamsulosin 0.4 mg capsule 0.8 mg PO DAILY 12/10/19 12/19/24 acetaminophen 325 mg tablet 650 mg PO BID PRN Fever Or Pain 12/05/24 12/19/24 apixaban 5 mg tablet (Eliquis) 5 mg PO BID 12/05/24 12/19/24 atorvastatin 80 mg tablet 80 mg PO BEDTIME 12/05/24 12/19/24 cholecalciferol (vitamin D3) 50 50 mcg PO DAILY 12/05/24 12/19/24 mcg (2,000 unit) capsule (Vitamin D3) cyanocobalamin (vitamin B-12) 500 500 mcg PO DAILY 12/05/24 12/19/24 mcg tablet (Vitamin B-12) empagliflozin 10 mg tablet 10 mg PO DAILY 12/05/24 12/19/24 (Jardiance) gabapentin 100 mg capsule 100 mg PO BID 12/05/24 12/19/24 lisinopril 5 mg tablet 5 mg PO BEDTIME 12/05/24 12/19/24 trazodone 50 mg tablet 50 mg PO BEDTIME 12/05/24 12/19/24 Previous Rx's ?Medication ?Instructions ?Recorded blood sugar diagnostic (FreeStyle #50 ea 01/03/20 Test strips) blood-glucose meter (FreeStyle #1 ea 01/03/20 Lite Meter kit) lancets 28 gauge (FreeStyle #100 ea 01/03/20 Lancets) cefuroxime axetil 500 mg tablet 500 mg PO BID #2 tabs 12/27/24 metoprolol tartrate 25 mg tablet 25 mg PO BID #1 tab 12/27/24 Allergies Allergy/AdvReac Type Severity Reaction Status Date / Time penicillin V Allergy Unknown Rash & Verified 02/01/25 09:34 Dizziness, rash and dizziness Review of Systems Review of Systems: ROS unable to be obtained due to altered mental status [facility] Past Medical History Attestation statement: The following information was validated with the patient. Source: old records reviewed Medical History Dyslipidemia Thoracic aneurysm without mention of rupture Confusion Leukocytosis Infarction of right basal ganglia Peripheral vascular disease Hyperlipidemia Essential hypertension Type 2 diabetes mellitus with unspecified complications Hx of cataract Surgical History S/P cardiac cath (~12/2019) History of cataract surgery Hx of appendectomy Hx of cholecystectomy Hx of pyloroplasty Hx of vagotomy Family History Family History Father Throat cancer Mother Medical history unknown Brother No problems noted. Social History Social History Household Members: Foster Family Housing: House Are you a primary home health care case manager to a significant other at home: No Do you presently have visiting nurse or other home services: No Alcohol intake: never Patient Tobacco Use Status: Former Tobacco user Smoked in Last 30 Days: No Second Hand Smoke Exposure: No Use of substances other than those prescribed or required for medical reasons: No Advance Directives: Yes Advance Directives on File: Yes Advance Directives Date on File: 12/05/24 Do you have a plan to hurt others: No Plan service: No Physical Exam Vital Signs: Vital Signs: Last Vital Signs Temp 98.2 F 02/01/25 09:30 Pulse 99 02/01/25 12:33 Resp 18 02/01/25 12:33 BP 206/84 H 02/01/25 12:33 Pulse Ox 97 02/01/25 12:07 O2 Del Method Room Air 02/01/25 12:07 BMI result Body Mass Index 26.1 Appearance: Alert. Oriented X 2 he believes it is December of 2025. No acute distress. Eyes: Pupils equal, round and reactive to light. ENT: Pharynx normal. Atraumatic Neck: Normal inspection. Neck supple. CVS: Normal heart rate and rhythm. Pulses normal. Respiratory: No respiratory distress. Breath sounds normal. Abdomen: Soft and nontender. He does not grimace to palpation Skin: Skin warm and dry. Normal skin color. Normal skin turgor. Extremities: No lower extremity edema. He has no pain with range of motion testing of both upper and lower extremity Neuro: Oriented X 2. No motor deficit. No sensory deficit. He has a hard time following exams but he did not see any obvious deficits Course Course Course Narrative: 10:44 AM 02/01/2025 (BAKARI ): Lactic acid is elevated we will gently hydrate and start on empiric ceftriaxone, infection suspected at this time Medications Administered Discontinued Medications Generic Name Dose Route Start Last Admin Trade Name Freq PRN Reason Stop Dose Admin Lactated Ringer's 1,000 mls @ 999 mls/hr 02/01/25 09:39 02/01/25 11:32 Lr IV 02/01/25 10:39 Infused .Q1H1M ONE Infusion Ceftriaxone Sodium 1 gm/ 50 mls @ 100 mls/hr 02/01/25 10:45 02/01/25 12:21 Sodium Chloride IV 02/01/25 11:14 Infused ONCE ONE Infusion Iohexol 100 ml 02/01/25 11:33 02/01/25 11:33 Iohexol 350 Mg/Ml 100 Ml Infus..Btl IV 02/01/25 11:34 85 ml ONCE ONE Administration Metoprolol Tartrate 25 mg 02/01/25 12:34 02/01/25 12:39 Metoprolol Tartrate 25 Mg Tablet PO 02/01/25 12:35 25 mg ONCE ONE Administration Protocol Medical Decision Making Medical Decision Making MDM Narrative: 84-year-old male with past medical history of hyperlipidemia, dementia, AFib on Eliquis, UTI, chest pain, hypertension, diabetes, peripheral vascular disease here again after being placed at rehab. It is unclear how long he has been home. But it looks like it has been a week family again complains of chronic diarrhea, did not sleep last night, his room was pulled apart. At this time I see no trauma on exam. I am going to obtain basic labs, given falls age and Eliquis use as well as dementia he will be getting CT head/C-spine, will obtain labs, EKG, UA. If workup is reassuring I am going to refer him to PT case management given the recurrent falls as well as DOAC use Differential Diagnosis Differential Diagnoses: The differential diagnosis associated with the presentation includes Dementia, rhabdo, urinary pathology, dehydration, BRAVO, anemia, head injury Admission/Observation Consideration of admission/observation: Escalation of care including admission/observation considered Will admit given criteria for sepsis as well as acute UTI, as well as fall risk, I do not believe he is suitable for short-term rehab at this time from the ED We will dose with his home metoprolol Consult Healthcare Provider Management of the patient was discussed with: Hospitalist (Will admit) Lab Data [facility] Lab Attestation statement: I reviewed the patient's lab results. 02/01/25 10:06 02/01/25 10:07 Labs: Lab Results 02/01/25 02/01/25 02/01/25 Range/Units 10:06 10:07 10:14 WBC 10.0 (4.8-10.8) X10*3/uL RBC 4.03 L (4.60-5.80) X10*6/uL Hgb 11.9 L (14.0-18.0) g/dl Hct 37.8 L (42.0-52.0) % MCV 93.8 (80.0-98.0) fL MCH 29.5 (27.0-33.0) pg MCHC 31.5 (31.0-36.0) g/dl RDW 14.0 (11.0-16.0) % Plt Count 195 (160-400) X10*3/uL MPV 11.8 (9.4-12.4) fL Immature Gran % (Auto) 0.3 (0.0-0.4) % Neut % (Auto) 70.4 (45-73) % Lymph % (Auto) 21.4 (20-40) % [place] % (Auto) 6.5 (2-11) % Eos % (Auto) 0.9 (0-4) % Baso % (Auto) 0.5 (0-2) % Lymph # (Auto) 2.1 (1.2-4.9) X10*3/uL [place] # (Auto) 0.7 (0.1-1.2) X10*3/uL Eos # (Auto) 0.1 (0.0-0.4) X10*3/uL Baso # (Auto) 0.1 (0.0-0.2) X10*3/uL Abs Immat Gran (auto) 0.03 (0.00-0.03) X10*3/uL Absolute Neuts (auto) 7.0 (2.0-8.3) x10*3/uL Absolute Nucleated RBC 0.000 (0.0-0.012) X10*3/uL Nucleated RBC % (auto) 0.0 (0.0-0.2) /100WBC PT 16.4 H (11.2-13.5) SEC INR 1.3 H (0.9-1.1) VBG pH 7.44 H (7.32-7.43) VBG pCO2 39 mmHg VBG pO2 58 mmHg VBG HCO3 27 H (22-26) mmol/L VBG O2 Saturation 89.0 % VBG Base Excess 3.3 mmol/L Sodium 142 (135-145) mmol/L Potassium 4.1 (3.3-5.1) mmol/L Chloride 109 H (96-108) mmol/L Carbon Dioxide 26 (22-29) mmol/L Anion Gap 11 L (12-20) BUN 13 (9-16) mg/dL Creatinine 1.02 (0.5-1.4) mg/dL Estim Creat Clear Calc 53.0 Estimated GFR > 60 Random Glucose 206 H (60-115) mg/dL Lactic Acid 2.9 H* (0.5-2.0) mmol/L Calcium 8.8 D (8.4-10.2) mg/dL Magnesium 1.9 (1.6-2.6) mg/dL Total Bilirubin 0.7 (0.0-1.0) mg/dL Direct Bilirubin 0.2 (0.0-0.5) mg/dL AST 40 H (5-37) U/L ALT 45 H (0-40) U/L Alkaline Phosphatase 139 H (39-117) U/L Total Creatine Kinase 225 H (38-174) U/L Troponin I High Sens 13.8 (<3.5-35.0) ng/L C-Reactive Protein < 0.04 (< or = 0.50) mg/dL Total Protein 6.6 (6.5-8.0) g/dL Albumin 4.1 (3.5-5.0) g/dL Lipase 26 (8-78) U/L Procalcitonin 0.03 ng/mL TSH 1.57 (0.32-4.0) uIU/mL Urine Color Urine Appearance Urine pH (5.0-9.0) Ur Specific [place] (1.005-1.025) Urine Protein (Neg-Trace) mg/dL Urine Glucose (UA) (Negative) mg/dL Urine Ketones (Negative) mg/dL Urine Blood (Negative) Urine Nitrite (Negative) Ur Leukocyte Esterase (Negative) Influenza Type A (PCR) NEGATIVE (Negative) Influenza Type B (PCR) NEGATIVE (Negative) RSV RNA Qual (PCR) NEGATIVE (Negative) SARS-CoV-2 RNA (RT-PCR) NEGATIVE (Negative) 02/01/25 Range/Units 12:07 WBC (4.8-10.8) X10*3/uL RBC (4.60-5.80) X10*6/uL Hgb (14.0-18.0) g/dl Hct (42.0-52.0) % MCV (80.0-98.0) fL MCH (27.0-33.0) pg MCHC (31.0-36.0) g/dl RDW (11.0-16.0) % Plt Count (160-400) X10*3/uL MPV (9.4-12.4) fL Immature Gran % (Auto) (0.0-0.4) % Neut % (Auto) (45-73) % Lymph % (Auto) (20-40) % [place] % (Auto) (2-11) % Eos % (Auto) (0-4) % Baso % (Auto) (0-2) % Lymph # (Auto) (1.2-4.9) X10*3/uL [place] # (Auto) (0.1-1.2) X10*3/uL Eos # (Auto) (0.0-0.4) X10*3/uL Baso # (Auto) (0.0-0.2) X10*3/uL Abs Immat Gran (auto) (0.00-0.03) X10*3/uL Absolute Neuts (auto) (2.0-8.3) x10*3/uL Absolute Nucleated RBC (0.0-0.012) X10*3/uL Nucleated RBC % (auto) (0.0-0.2) /100WBC PT (11.2-13.5) SEC INR (0.9-1.1) VBG pH (7.32-7.43) VBG pCO2 mmHg VBG pO2 mmHg VBG HCO3 (22-26) mmol/L VBG O2 Saturation % VBG Base Excess mmol/L Sodium (135-145) mmol/L Potassium (3.3-5.1) mmol/L Chloride (96-108) mmol/L Carbon Dioxide (22-29) mmol/L Anion Gap (12-20) BUN (9-16) mg/dL Creatinine (0.5-1.4) mg/dL Estim Creat Clear Calc Estimated GFR Random Glucose (60-115) mg/dL Lactic Acid (0.5-2.0) mmol/L Calcium (8.4-10.2) mg/dL Magnesium (1.6-2.6) mg/dL Total Bilirubin (0.0-1.0) mg/dL Direct Bilirubin (0.0-0.5) mg/dL AST (5-37) U/L ALT (0-40) U/L Alkaline Phosphatase (39-117) U/L Total Creatine Kinase (38-174) U/L Troponin I High Sens (<3.5-35.0) ng/L C-Reactive Protein (< or = 0.50) mg/dL Total Protein (6.5-8.0) g/dL Albumin (3.5-5.0) g/dL Lipase (8-78) U/L Procalcitonin ng/mL TSH (0.32-4.0) uIU/mL Urine Color Yellow Urine Appearance Cloudy Urine pH 6.0 (5.0-9.0) Ur Specific [place] 1.010 (1.005-1.025) Urine Protein 30 (1+) H (Neg-Trace) mg/dL Urine Glucose (UA) 100 H (Negative) mg/dL Urine Ketones Negative (Negative) mg/dL Urine Blood Large (3+) H (Negative) Urine Nitrite Positive H (Negative) Ur Leukocyte Esterase Large (3+) H (Negative) Influenza Type A (PCR) (Negative) Influenza Type B (PCR) (Negative) RSV RNA Qual (PCR) (Negative) SARS-CoV-2 RNA (RT-PCR) (Negative) Independent Interpretation I performed an independent interpretation of an: EKG, Plain X-Ray and CT Scan (No trauma bladder wall thickening) Interpretation: Rate: 71 Rhythm: Normal sinus rhythm with frequent PAC [place]: Normal Normal P waves. Normal RACHEL. Normal QRS complex. ST T wave : No ST-elevation, inverted T-wave in lead III qTC: 430 prior studies: The computer states the patient is in AFib but there are P waves predominantly before QRS other than PACs noted The study has been interpreted contemporaneously by me. . Radiology Impression Discussion of test interpretation with radiology: I have reviewed the radiologist's reading. Independent Historian Clinical information obtained from an independent historian. History obtained from or confirmed by: EMS External Record Review External record reviewed: Inpatient record and Outpatient record Social Determinants Patient?s care significantly limited by Social Determinants of Health including: Problems related to primary support group Discharge Plan Discharge Clinical Impression: Acidosis, lactic, Encephalopathy, Acute UTI Patient Disposition: Admitted As Inpatient Print Language: Korean
[2025-02-01] MEDS: Lactated Ringers 1,000 ML 999 ML IV (10:12)
[2025-02-01 10:16] LABS: MANUAL DIFF FLAG NO
[2025-02-01 10:17] LABS: Venous Blood Gas Refer to POC result
[2025-02-01 10:18] LABS: VBG HCO3 27 mmol/L (22-26); VBG O2 % Saturation 89.0 %
[2025-02-01 10:19] LABS: Hematocrit 37.8 % (42.0-52.0); Hemoglobin 11.9 g/dl (14.0-18.0); Imm Gran Abs Auto 0.03 X10*3/uL (0.00-0.03); Imm Gran Pct Auto 0.3 % (0.0-0.4); Lymphocytes Absolute Auto 2.1 X10*3/uL (1.2-4.9); Mean Corpuscular HGB Conc 31.5 g/dl (31.0-36.0); Mean Corpuscular Hemoglobin 29.5 pg (27.0-33.0); Mean Corpuscular Volume 93.8 fL (80.0-98.0); NRBC Abs Auto 0.000 X10*3/uL (0.0-0.012); NRBC Pct Auto 0.0 /100WBC (0.0-0.2); Platelet Count 195 X10*3/uL (160-400); Red Blood Count 4.03 X10*6/uL (4.60-5.80); White Blood Count 10.0 X10*3/uL (4.8-10.8)
[2025-02-01 10:23] LABS: INTERNATIONAL NORM RATIO 1.3 (0.9-1.1); Prothrombin Time 16.4 SEC (11.2-13.5)
--- OUTSIDE RECORDS SUMMARY | 2025-02-01 10:23 | XMS_ITS | Patient Health Record ---
Author [facility] Address [address] [place] [address] Care Team Providers Care Occ Therapy Asst Name Role Phone Purvi STEVENS, [facility] Primary Care Provider U biankaradha Hipolito Mathis Unavailable [phone] Allergies Allergen (clinical drug ingredient) Drug/Non Drug Allergy documented on EMR Reaction Allergy Type Onset Date Status Penicillin Unknown Drug Allergy Active Results Component Value Reference Range Notes HEMOGLOBIN A1C (GLYCOHEMOGLO BIN) Reviewed date:07/16/2024 02:37:52 [...] Problem Acquired hammer toe of right foot (5485945781117451 ) Other hammer toe(s) (acquired), right foot (M20.41) Active confirmed Response to treatment, Improvemen t Problem Acquired hammer toe of left foot (5363190528263744 ) Other hammer toe(s) (acquired), left foot (M20.42) Active confirmed Response to treatment, Improvemen t Problem Polyneuropathy due to type 2 diabetes mellitus (641434864) Type 2 diabetes mellitus with diabetic polyneuropathy (E11.42) Active confirmed Vital Signs Height 5 ft 10 in in 07/16/2024 Weight 174 lbs 07/16/2024 BMI 24.96 kg/m2 07/16/2024 Procedures Procedure Date Ordered Date Performed Result Body Sit e 86851-TORIYRL NAIL, 6 OR MORE 04/16/2024 N/A 16425-Ccarjmya Plate 04/16/2024 N/A 05819-Femuevpc Plate Each Additional 04/16/2024 N/A 10234-TKVM SKIN LESIONS, OVER 4 04/16/2024 N/A 78976-CXJQHPU NAIL, 6 OR MORE 07/16/2024 N/A 88806-Vsvpxtac Plate 07/16/2024 N/A 23965-Gbuzksci Plate Each Additional 07/16/2024 N/A 76849-WTSH SKIN LESIONS, OVER 4 07/16/2024 N/A Encounters Encounter [facility] Date [facility] [address] [facility]/16/2024 Hipolito Mathis Type 2 diabetes mellitus with diabetic polyneuropathy E11.42 ; Tinea unguium B35.1 and Ingrown nail L60.0 [facility] [address] [address] 07/16/2024 Hipolito Delfina Type 2 diabetes mellitus with diabetic polyneuropathy E11.42 ; Onychomycosis B35.1 ; Ingrown nail L60.0 ; Other hammer toe(s) (acquired), right foot M20.41 and Other hammer toe(s) (acquired), left foot M20.[address] [address] 10/18/2024 Hipolito Mathis Assessments Encounter Date Diagnosis [...] Treatment Pending Test Test Name Order Date 24881-KKBBEYA NAIL, 6 OR MORE 09/10/2020 38140-NRFLWLS NAIL, 6 OR MORE 12/10/2020 12798-OUWVUDF NAIL, 6 OR MORE 03/19/2021 82980-WNAPVJQ NAIL, 6 OR MORE 09/17/2021 27448-CUPQESJ NAIL, 6 OR MORE 12/17/2021 94188-WNJPFPW NAIL, 6 OR MORE 05/13/2022 93456-BWVPKUP NAIL, 6 OR MORE 08/12/2022 91021-PXKLKWF NAIL, 6 OR MORE 11/18/2022 69470-OVDHIZT NAIL, 6 OR MORE 02/24/2023 90186-KDPDWAJ NAIL, 6 OR MORE 06/02/2023 13581-PKVXVMQ NAIL, 6 OR MORE 09/01/2023 62012-DPUEEGV NAIL, 6 OR MORE 12/01/2023 23807-NXOSOYK NAIL, 6 OR MORE 04/16/2024 37503-NZPSMSP NAIL, 6 OR MORE 07/16/2024 25845-MQGVWIQ NAIL, 6 OR MORE 06/18/2021 17243-Bjlileqa Plate 07/16/2024 91672-Oxdajfxe Plate 04/16/2024 85277-Zdxmixjd Plate 12/01/2023 02305-Yxwojqri Plate 09/01/2023 11597-Bqnyldtd Plate 06/02/2023 85779-Jamlumoq Plate 02/24/2023 91132-Gbmtpeid Plate 11/18/2022 28016-Efexbtmn Plate 08/12/2022 68074-Evqwldhv Plate 05/13/2022 92631-Naahmrdz Plate 12/17/2021 20810-Iecvjppy Plate 09/17/2021 22067-Ltnuxarg Plate 09/10/2020 12143-Rmofcdyn Plate Each Additional 21973-Dezkvels Plate Each Additional 09/2021 31362-Maziynkk Plate Each Additional 08/2021 47727-Walnrodj Plate Each Additional 04/2022 70423-Wfhommgj Plate Each Additional 03/2022 02253-Fpxbfpor Plate Each Additional 09/2022 47409-Cczpataj Plate Each Additional 46726-Podhbqgp Plate Each Additional 73490-Ufyaejbw Plate Each Additional 01024-Dtmswilf Plate Each Additional 44717-Qdtwaghj Plate Each Additional 05/2024 84571-Olvkvgdp Plate Each Additional 07/2024 94171 I&D ABSCESS- SIMPLE,SINGLE 023 64227-HMKW SKIN LESIONS, OVER 4 06/19/19 22 28101-JNIU SKIN LESIONS, OVER 4 07/17/19 25 34385-UHRN SKIN LESIONS, OVER 4 04/16/19 25 84503-VZTD SKIN LESIONS, OVER 4 12/01/19 24 98620-XHUB SKIN LESIONS, OVER 4 09/01/19 24 29736-QXYU SKIN LESIONS, OVER 4 06/02/19 24 56995-ZGKO SKIN LESIONS, OVER 4 02/25/20 23 25583-USLJ SKIN LESIONS, OVER 4 11/19/19 23 66952-HRKI SKIN LESIONS, OVER 4 08/13/19 23 72486-QUCI SKIN LESIONS, OVER 4 05/14/19 23 91456-SAHF SKIN LESIONS, OVER 4 12/18/19 22 49575-GXQX SKIN LESIONS, OVER 4 09/18/19 22 56711-VULN SKIN LESIONS, OVER 4 09/11/19 21 58959-YCWZ SKIN LESIONS, OVER 4 03/19/19 22 82839-PYKK SKIN LESIONS, OVER 4 12/11/19 21 Insurance Providers Payer Name Payer Address Payer Phone Subscriber Number Group Number Insured Name Patient Relationship to Insured Coverage Start Date Coverage End Date [employer] [address] [address] [place] [address] [id number] Rey Gil Self - patient is the [...]
--- OUTSIDE RECORDS SUMMARY | 2025-02-01 10:23 | XMS_ITS | Patient Health Record ---
Author Organization [facility] Address [address] [place] [address] Care Team Providers Care Talend Etl Developer Name Role Phone Shashaday Shellie Primary Care Provider Edward Rivera Unavailable [phone] Results Component Value Reference Range Flag Notes Prothrombin Time INR Reviewed date:12/21/2024 06:41:39 PM Interpretation: Performing Lab:[facility], [address] [place] [phone] Notes/Report: Prothrombin Time 15.5 10.9-12.4 SEC H INTERNATIONAL NORM RATIO 1.4 0.9-1.1 H INTERNATIONAL NORMALIZED RATIO (INR) REFERENCE RANGES Reference Range For patients not on anticoagulant therapy: 0.9 - 1.1 INR ranges for oral anticoagulant therapy: For prevention and treatment of venous thrombosis and pulmonary embolism: 2.0 - 3.0 For acute myocardial infarction with aspirin therapy: 2.0 - 3.0 For acute myocardial infarction without aspirin therapy: 3.0 - 4.0 For patients with mechanical prosthetic heart valves: 2.5 - 3.5 Complete Blood Count Auto Di ff Reviewed date:12/25/2024 09:19:04 AM Interpretation: Performing Lab:[facility], [address] [place] [phone] Notes/Report: White Blood Count 7.1 4.8-10.8 X10*3/uL N Red Blood Count 3.76 4.60-5.80 X10*6/uL L Hemoglobin 11.2 14.0-18.0 g/dl L Hematocrit 34.8 42.0-52.0 % L Mean Corpuscular Volume 92.6 80.0-98.0 fL N Mean Corpuscular Hemoglobin 29.8 27.0-33.0 pg N Mean Corpuscular HGB Conc 32.2 31.0-36.0 g/dl N Red Cell Distribution Width 13.5 11.0-16.0 % N Platelet Count 183 160-400 X10*3/uL N Mean Platelet Volume 12.2 9.4-12.4 fL N Neutrophils Percent Auto 57.0 45-73 % N Imm Gran Pct Auto 0.4 0.0-0.4 % N Lymphocytes Percent Auto 29.8 20-40 % N Monocytes Percent Auto 8.9 2-11 % N Eosinophils Percent Auto 3.5 0-4 % N Basophils Percent Auto 0.4 0-2 % N NRBC Pct Auto 0.0 0.0-0.2 /100WBC N Neutrophils Absolute Auto 4.0 2.0-8.3 x10*3/uL N Imm Gran Abs Auto 0.03 0.00-0.03 X10*3/uL N Lymphocytes Absolute Auto 2.1 1.2-4.9 X10*3/uL N Monocytes Absolute Auto 0.6 0.1-1.2 X10*3/uL N Eosinophils Absolute Auto 0.3 0.0-0.4 X10*3/uL N Basophils Absolute Auto 0.0 0.0-0.2 X10*3/uL N NRBC Abs Auto 0.000 0.0-0.012 X10*3/uL N Prothrombin Time INR Reviewed date:12/25/2024 09:18:49 AM Interpretation: Performing Lab:[address] [address] Notes/Report: Prothrombin Time 12.2 10.9-12.4 SEC INTERNATIONAL NORM RATIO 1.1 0.9-1.1 N INTERNATIONAL NORMALIZED RATIO (INR) REFERENCE RANGES Reference Range For patients not on anticoagulant therapy: 0.9 - 1.1 INR ranges for oral anticoagulant therapy: For prevention and treatment of venous thrombosis and pulmonary embolism: 2.0 - 3.0 For acute myocardial infarction with aspirin therapy: 2.0 - 3.0 For acute myocardial infarction without aspirin therapy: 3.0 - 4.0 For patients with mechanical prosthetic heart valves: 2.5 - 3.5 Basic Metabolic Panel Reviewed date:12/25/2024 01:31:29 PM Interpretation: Performing Lab:[address] [phone] Notes/Report: Sodium 142 135-145 mmol/L N Potassium 3.8 3.3-5.1 mmol/L N Chloride 109 96-108 mmol/L H Carbon Dioxide 26 22-29 mmol/L N Anion Gap 11 12-20 L Blood Urea Nitrogen 14 9-16 mg/dL N Creatinine 0.75 0.5-1.4 mg/dL N Creatinine Clr Calc Pharmacy 79.4 eGFR (calculated from the MDRD study equation) and eCrCl (calculated from the Cockcroft-Gault equation) are based on different parameters and may not yield comparable results. If eCrCl result is absurd, please check patient's height/weight. Estimated Glomerular Filt Rate > 60 Chronic Kidney Disease: Estimated GFR < 60 mL/min/1.73m2 Severe Kidney Disease: Estimated GFR < 15 mL/min/1.73m2 Glucose Random 185 60-115 mg/dL H Calcium 8.3 8.4-10.2 mg/dL L Basic Metabolic Panel Fastin g Reviewed date:12/25/2024 01:30:58 PM Interpretation: Performing Lab:[facility], [address] [place] [phone] Notes/Report: Glucose Fasting 185 60-99 mg/dL H A fasting glucose of 126 mg/dl or greater on more than one occasion is considered diagnostic of diabetes. Pathology Reviewed date:12/27/2024 08:03:31 AM Interpretation: Performing Lab:[facility], [address] [place] [phone] Notes/Report: Reason For Referral No Information Encounters Encounter Location Date Provider Diagnosis [facility] [address] [place] [id number] 12/25/2024 Edward Damian Plan Of Treatment Next Appt Details Provider Name:Arben montiel Jr, 06/13/2025 03:35:00 PM, [address] [place] [address], [address], [place], [address], Insurance Providers Payer Name Payer Address Payer Phone Subscriber Number Group Number Insured Name Patient Relationship to Insured Coverage Start Date Coverage End Date [facility] [employer] [address] [address] [place] [id number] JASSI SCHMID Self - patient is the insured MEDICA[employer] OF [employer] [address] [place] [id number] JASSI SCHMID Self - patient is the insured MEDICARE OF [place] [address] [place] [address] [id number] JASSI SCHMID Self - patient is the insured
[2025-02-01 10:40] LABS: Troponin-I High Sensitivity 13.8 ng/L (<3.5-35.0)
[2025-02-01 10:45] LABS: Alanine Aminotransferase 45 U/L (0-40); Albumin Level 4.1 g/dL (3.5-5.0); Alkaline Phosphatase 139 U/L (39-117); Anion Gap 11 (12-20); Aspartate Amino Transferase 40 U/L (5-37); Blood Urea Nitrogen 13 mg/dL (9-16); Calcium 8.8 mg/dL (8.4-10.2); Carbon Dioxide 26 mmol/L (22-29); Chloride 109 mmol/L (96-108); Creatinine Clr Calc Pharmacy 53.0; Estimated Glomerular Filt Rate > 60; Lipase 26 U/L (8-78); Magnesium 1.9 mg/dL (1.6-2.6); Potassium 4.1 mmol/L (3.3-5.1); Sodium 142 mmol/L (135-145); Total Protein 6.6 g/dL (6.5-8.0)
[2025-02-01 10:54] LABS: Procalcitonin 0.03 ng/mL; Resp Syncy Virus RNA Qual PCR NEGATIVE (Negative); SARS COV2 PCR INHOUSE NEGATIVE (Negative)
[2025-02-01] MEDS: iohexoL 350 MG/ML 100 ML INFUS..BTL IV (11:33)
[2025-02-01 12:13] LABS: Reflex Lactate? Lactic Acid Added
[2025-02-01 12:31] LABS: Appearance Urine Cloudy; Glucose Urine UA 100 mg/dL (Negative); PH 6.0 (5.0-9.0); Specific Gravity - Urine 1.010 (1.005-1.025); UMIC TRIGGER UACC YES
[2025-02-01 12:45] LABS: Other Crystals Urine Present; UACC Culture Trigger YES
--- NOTE | 2025-02-01 13:56 | PM.IMHP ---
History of Present Illness Date of Service: 02/01/25 Attending physician on admission: Ray Escalera Chief Complaint: fall, confusion This is an 84-year-old male with multiple medical issues who was brought to the emergency department after being found in the floor. He reportedly fell and hit his head although he is unable to recall the event. Patient has a history of underlying dementia and is overall a poor historian. He is reporting some right-sided back pain otherwise feels well. He denies any current dizziness. In the emergency department he was noted to have elevated lactic acid at 2.9, mild elevation in his LFTs. Urinalysis was consistent with UTI and he was treated with IV ceftriaxone. CT scan of the abdomen and pelvis showed wall thickening of the bladder and likely chronic outlet obstruction. The patient reports pain with urination but the duration of his symptoms are unclear. Of note patient was admitted to the hospital in the middle of December for encephalopathy due to UTI and was discharged to snf facility on December 27. He was discharged from SNF 1-2 weeks ago and has been residing with his daughter. His daughter was unavailable to talk to at the time of admission, thus other details are limited. He is accompanied by his from who he is but remains involved in his care. She saw him over the weekend and reports that he is confused compared to the last time she saw him. Review of Systems Review of Systems: Yes all other systems are reviewed and are negative Constitutional: Constitutional: Denies chills and Denies fever(s) Cardiovascular: Cardiovascular: Denies chest pain Gastrointestinal: Gastrointestinal: Denies abdominal pain, Denies nausea and Denies vomiting [facility] Medical History Dyslipidemia Thoracic aneurysm without mention of rupture Confusion Leukocytosis Infarction of right basal ganglia Peripheral vascular disease Hyperlipidemia Essential hypertension Type 2 diabetes mellitus with unspecified complications Hx of cataract Family History Father Throat cancer Mother Medical history unknown Brother No problems noted. Surgical History S/P cardiac cath (~12/2019) History of cataract surgery Hx of appendectomy Hx of cholecystectomy Hx of pyloroplasty Hx of vagotomy Social History Household Members: Foster Family Housing: House Are you a primary home care nurse to a significant other at home: No Do you presently have visiting nurse or other home services: No Alcohol intake: never Patient Tobacco Use Status: Former Tobacco user Smoked in Last 30 Days: No Second Hand Smoke Exposure: No Use of substances other than those prescribed or required for medical reasons: No Advance Directives: Yes Advance Directives on File: Yes Advance Directives Date on File: 12/05/24 Do you have a plan to hurt others: No Plan service: No Meds Allergies Allergy/AdvReac Type Severity Reaction Status Date / Time penicillin V Allergy Unknown Rash & Verified 02/01/25 09:34 Dizziness, rash and dizziness Active Medications: Current Medications Acetaminophen (Acetaminophen 325 Mg Tablet) 650 mg PO Q6H PRN PRN Reason: Pain, Mild 1-3,fever,headache Calcium Carbonate (Calcium Carbonate 750 Mg Tab.Chew) 750 mg PO Q4H PRN PRN Reason: Heartburn Dextrose (Dextrose 50 % 25 Gm/50 Ml Syringe) 25 gm IVPUSH Q15M PRN; Protocol PRN Reason: per Hypoglycemia Standing Ord. Glucose (Glucose Gel 15 Gm Gel..Gram.) 15 gm PO Q15M PRN; Protocol PRN Reason: per Hypoglycemia Standing Ord. Insulin Human Lispro (Insulin Lispro 100 Unit/Ml 3 Ml Vial) 0 unit SUBCUT [facility]; Protocol Magnesium Hydroxide (Milk Of Magnesia 30 Ml Oral.Susp) 30 ml PO DAILY PRN PRN Reason: Constipation Melatonin (Melatonin 3 Mg Tablet) 6 mg PO BEDTIME PRN PRN Reason: Insomnia Sodium Chloride (0.9 % Sodium Chloride Flush 3 Ml Syringe) 3 ml IVFLUSH [facility] Home Medications ?Medication ?Instructions ?Recorded ?Confirmed ?Last Taken ?Type tamsulosin 0.4 mg capsule 0.8 mg PO DAILY 12/10/19 02/01/25 02/01/25 History acetaminophen 325 mg tablet 650 mg PO BID PRN Fever Or Pain 12/05/24 02/01/25 Unknown History apixaban 5 mg tablet (Eliquis) 5 mg PO BID 12/05/24 02/01/25 02/01/25 History atorvastatin 80 mg tablet 80 mg PO BEDTIME 12/05/24 02/01/25 01/31/25 History cholecalciferol (vitamin D3) 50 50 mcg PO DAILY 12/05/24 02/01/25 02/01/25 History mcg (2,000 unit) capsule (Vitamin D3) cyanocobalamin (vitamin B-12) 500 500 mcg PO DAILY 12/05/24 02/01/25 02/01/25 History mcg tablet (Vitamin B-12) empagliflozin 10 mg tablet 10 mg PO DAILY 12/05/24 02/01/25 12/19/24 History (Jardiance) gabapentin 100 mg capsule 100 mg PO BID 12/05/24 02/01/25 02/01/25 History lisinopril 5 mg tablet 5 mg PO BEDTIME 12/05/24 02/01/25 01/31/25 History trazodone 50 mg tablet 50 mg PO BEDTIME 12/05/24 02/01/25 01/31/25 History insulin glargine 100 unit/mL (3 10 unit subcut BEDTIME 02/01/25 02/01/25 Unknown History mL) subcutaneous pen (Lantus Solostar U-100 Insulin) loperamide 2 mg tablet 2 mg PO Q4H PRN Loose Stool 02/01/25 02/01/25 Unknown History loperamide 2 mg tablet 4 mg PO ONCE PRN First Loose Stool 02/01/25 02/01/25 Unknown History Physical Exam Vital Signs and Narrative: Vital Signs: Last Vital Signs Temp 98.2 F 02/01/25 09:30 Pulse 82 02/01/25 13:48 Resp 18 02/01/25 12:33 BP 177/83 H 02/01/25 13:48 Pulse Ox 97 02/01/25 12:07 O2 Del Method Room Air 02/01/25 12:07 BMI result Body Mass Index 26.1 Const: General: cooperative, alert and awake Nutritional Appearance: average body habitus Orientation/consciousness: oriented to person and oriented to place Resp: Effort & Inspection: normal respiratory effort, able to speak in complete sentences, no respiratory distress and no use of accessory muscles Cardio: Rate: regular rate GI: Inspection: No distended Palpation (GI): Soft to palpation and nontender Back/Spine/Pelvis: Other: reporting right paraspinal muscle tenderness; no midline tenderness; no bruising or wounds noted to back or right hip Neuro: General: oriented to person, oriented to place, moves all extremities and CN's II-XI intact bilaterally Extrem: Other: Able to move all 4 extremities spontaneously Results Labs 02/01/25 10:06 02/01/25 10:07 Labs: Laboratory Results - last 24 hr 02/01/25 02/01/25 02/01/25 10:06 10:07 10:14 MCV 93.8 MCH 29.5 MCHC 31.5 RDW 14.0 Plt Count 195 MPV 11.8 Immature Gran % (Auto) 0.3 Neut % (Auto) 70.4 Lymph % (Auto) 21.4 Scott % (Auto) 6.5 Eos % (Auto) 0.9 Baso % (Auto) 0.5 Lymph # (Auto) 2.1 Scott # (Auto) 0.7 Eos # (Auto) 0.1 Baso # (Auto) 0.1 Abs Immat Gran (auto) 0.03 Absolute Neuts (auto) 7.0 Absolute Nucleated RBC 0.000 Nucleated RBC % (auto) 0.0 PT 16.4 H INR 1.3 H VBG pH 7.44 H VBG pCO2 39 VBG pO2 58 VBG HCO3 27 H VBG O2 Saturation 89.0 VBG Base Excess 3.3 Anion Gap 11 L Estim Creat Clear Calc 53.0 Estimated GFR > 60 Random Glucose 206 H Lactic Acid 2.9 H* Calcium 8.8 D Magnesium 1.9 Total Bilirubin 0.7 Direct Bilirubin 0.2 AST 40 H ALT 45 H Alkaline Phosphatase 139 H Total Creatine Kinase 225 H Troponin I High Sens 13.8 C-Reactive Protein < 0.04 Total Protein 6.6 Albumin 4.1 Lipase 26 Procalcitonin 0.03 TSH 1.57 Urine Color Urine Appearance Urine pH Ur Specific Strang Urine Protein Urine Glucose (UA) Urine Ketones Urine Blood Urine Nitrite Ur Leukocyte Esterase Urine RBC Urine WBC Ur Squamous Epith Cells Other Crystals Urine Bacteria Hyaline Casts Influenza Type A (PCR) NEGATIVE Influenza Type B (PCR) NEGATIVE RSV RNA Qual (PCR) NEGATIVE SARS-CoV-2 RNA (RT-PCR) NEGATIVE 02/01/25 12:07 MCV MCH MCHC RDW Plt Count MPV Immature Gran % (Auto) Neut % (Auto) Lymph % (Auto) Scott % (Auto) Eos % (Auto) Baso % (Auto) Lymph # (Auto) Scott # (Auto) Eos # (Auto) Baso # (Auto) Abs Immat Gran (auto) Absolute Neuts (auto) Absolute Nucleated RBC Nucleated RBC % (auto) PT INR VBG pH VBG pCO2 VBG pO2 VBG HCO3 VBG O2 Saturation VBG Base Excess Anion Gap Estim Creat Clear Calc Estimated GFR Random Glucose Lactic Acid Calcium Magnesium Total Bilirubin Direct Bilirubin AST ALT Alkaline Phosphatase Total Creatine Kinase Troponin I High Sens C-Reactive Protein Total Protein Albumin Lipase Procalcitonin TSH Urine Color Yellow Urine Appearance Cloudy Urine pH 6.0 Ur Specific Strang 1.010 Urine Protein 30 (1+) H Urine Glucose (UA) 100 H Urine Ketones Negative Urine Blood Large (3+) H Urine Nitrite Positive H Ur Leukocyte Esterase Large (3+) H Urine RBC 3-5 H Urine WBC >50 H Ur Squamous Epith Cells 0-2 Other Crystals Present Urine Bacteria 4+ Hyaline Casts 0-2 Influenza Type A (PCR) Influenza Type B (PCR) RSV RNA Qual (PCR) SARS-CoV-2 RNA (RT-PCR) Imaging Radiologist's Impressions: Impressions Abdomen/Pelvis CT 02/01/25 11:33 IMPRESSION: 1. No acute findings in the abdomen or pelvis identified. 2. Severe colonic diverticulosis without CT evidence of acute diverticulitis. Previously questioned focal wall thickening of the hepatic flexure of the colon is not well appreciated on today's exam. This may have represented transient peristalsis. 3. No change in the 2.2 cm cystic lesion in the head of the pancreas. Nonemergent MRI again recommended for definitive characterization. 4. Mild diffuse wall thickening of the urinary bladder with numerous diverticula, suggesting chronic outlet obstruction. 5. Additional ancillary findings as discussed in the body of the report. Electronically signed by: Rigoberto Marquez MD 02/01/2025 12:18 PM EST RP Cervical Spine CT 02/01/25 11:33 IMPRESSION: No CT evidence of acute fracture or traumatic subluxation. Moderate-severe cervical spondylosis. Fleischner guidelines were followed. Electronically signed by: Aric Wade MD 02/01/2025 12:17 PM EST RP Head CT 02/01/25 11:33 IMPRESSION: No acute intracranial abnormality. Stable chronic changes. Electronically signed by: Kaleb Johns MD 02/01/2025 12:13 PM EST RP Chest X-Ray 02/01/25 12:46 IMPRESSION: Interstitial prominence in bilateral lungs, nonspecific. This could reflect inflammatory/infectious process in the appropriate clinical circumstance. Electronically signed by: Aric Wade MD 02/01/2025 12:54 PM EST RP Assessment and Plan (1) Acute UTI: Status: Acute (2) Acidosis, lactic: Status: Acute (3) Acute metabolic encephalopathy: Status: Acute Plan This is an 84-year-old male with past medical history of dementia, AFib on Eliquis, hypertension, GERD, depression, type 2 diabetes, history of recurrent UTIs, recent mentioned December for encephalopathy due to UTI recently discharged from rehab who returns to the emergency department for fall found to have UTI Acute toxic metabolic encephalopathy due to UTI Previous cultures growing Serratia sensitive to ceftriaxone CT with likely chronic bladder outlet obstruction IV ceftriaxone Follow results of urine cultures, blood cultures Unwitnessed fall Poor historian due to underlying dementia and acute encephalopathy, unable to recall what happened Can not rule out syncope Monitor on telemetry PT evaluation prior to discharge uncontrolled HTN did not take meds this am resume metoprolol, lisinopril follow bp Acute lactic acidosis Possibly due to dehydration not sepsis. Patient does not meet SIRS criteria gentle IVF trend Elevated LFTs trend if trend up may need to hold statin T2DM SSI, POCs, ADA diet per pharmacy pt is to stop taking jardiance today and start taking 10u lantus will continue dose adjusted Lantus 7U and monitor POCs, can tritrate as needed Paroxysmal atrial fibrillation Continue Eliquis, metoprolol HLD statin BPH continue flomax DVT prophylaxis-Eliquis Patient will likely require 2 midnight stay in the hospital for management of UTI, encephalopathy and PT evaluation for safe disposition Quality Stroke Does the patient have a stroke diagnosis?: No VTE Prior VTE?: No VTE Risk Level:: Medical - moderate - high VTE Device Contraindication: N/A - Device Ordered VTE Drug Contraindication: N/A - Med Ordered
[2025-02-01] MEDS: Lactated Ringers 1,000 ML 80 ML IVCONT (14:25)
[2025-02-01 14:30] LABS: ~Lactic Acid-LAB USE ONLY 1.8 mmol/L (0.5-2.0)
--- NOTE | 2025-02-01 15:39 | PHA.MEDREC ---
Addendum entered by Yudelka Moran [facility] 02/01/25 16:27: MED REC REVIEWED BY [facility] Provider Tara Earl was made aware that pt is supposed to stop jardiance today and start lantus. She wants jardiance to be removed from patient's home med list. Original Note: Pharmacy Consult ? Medication Reconciliation Pharmacy has completed the medication reconciliation. Spoke with pt and he was a poor historian with his meds and told us to call his daughter (Melina [phone]) and she confirmed the pt's meds; Atorvastatin, Eliquis, Gabapentin, Lisinopril, Tamsulosin and Trazodone are being filled through [facility] mail order per pt daughter. Pt suppose to start Lantus Soltorreyar demetria but unable to due to coming here; pt stopped Jardiance to start Lantus.
--- NOTE | 2025-02-01 15:55 | PC.NURSE ---
Alert with confusion, denies pain or discomfort. yellow socks on, bed in lowest position, bed alarm in place. at bedside.
[2025-02-01 17:52] LABS: Glucose, Whole Blood 138 mg/dL (60-115)
--- NOTE | 2025-02-01 19:27 | PC.NURSE ---
this RN assumed care of this pt @1900, pt noted to be laying supine, no apparent distress m/ respiratory distress noted, respirations even and unlabored, connected to quality assurance monitor final, LR hung and running @80mL/hr, IV wrapped for safety, fall measures in place, sitter at the bedside
[2025-02-01] MEDS: Insulin Glargine,Hum.rec.anlog 100 UNIT/ML 10 ML VIAL 7 UNIT SUBCUT (20:57)
[2025-02-01 21:17] LABS: Glucose, Whole Blood 129 mg/dL (60-115)
--- NOTE | 2025-02-01 23:11 | PC.NURSE ---
pt IVF consitently showing Downstream Occlusion since 1899, pt would continue to bend left arm, unable to follow bsic commands and in need of consistent redirection. New IV site location placed to the left forearm, IVF reconnected to site and running, approximately 300mL infused at this time
--- NOTE | 2025-02-01 23:48 | PC.NURSE ---
pt restless and unable to sleep, medicated per MAR
--- NOTE | 2025-02-01 23:53 | HO.NURTONUR ---
From home after being found on the floor in his bedroom this morning. Has been living with his daughter x 1 week, had had diarrhea x 1 week. He does not recall falling or what caused the fall. Patient has a history of underlying dementia and is overall a poor historian. Is mostly [place] speaking. CT scans without acute findings. He is reporting some right-sided back pain otherwise feels well. He denies any current dizziness. BP elevated received home dose of metoprolol with good effect. Has been incontinent of urine in ed, male purewick placed. 20 g in left ac with LR running. oob with 2 assist to chair. Being admitted for uti and acute metabolic encephalopathy.
[2025-02-02] VITALS (10 sets, daily range): BP systolic 128–184; BP diastolic 60–117; PULSE 53–91; RESP 15–20; TEMP 36.1–37.2; O2SAT 95–99; BMI 24.5
[2025-02-02 07:52] LABS: Glucose, Whole Blood 123 mg/dL (60-115)
[2025-02-02] MEDS: 0.9 % Sodium Chloride Flush 3 ML SYRINGE IVFLUSH ×3 (08:06→20:55)
--- NOTE | 2025-02-02 09:39 | HO.PM.IMPN ---
Subjective Subjective Date of Service: 02/02/25 Interval History: no new complaints Review of Systems Review of Systems: Yes all other systems are reviewed and are negative Physical Exam Exam: Exam: General: AO X 1, no acute distress Resp: CTA bilateral, no accessory muscles used CVS: S1,S2,RRR GI: soft, non tender, non distended Neuro: motor grossly intact, alert Psych: appropriate affect, impaired insight Vital Signs: Vital Signs: Last Vital Signs Temp 97.2 F 02/02/25 07:26 Pulse 85 02/02/25 07:26 Resp 18 02/02/25 07:26 BP 159/70 H 02/02/25 07:26 Pulse Ox 95 02/02/25 07:26 O2 Del Method Room Air 02/02/25 07:26 BMI result Body Mass Index 24.5 Objective Data Active Medications Acetaminophen (Acetaminophen 325 Mg Tablet) 650 mg PO Q6H PRN PRN Reason: Pain, Mild 1-3,fever,headache Apixaban (Apixaban 5 Mg Tablet) 5 mg PO BID [facility] Last Admin: 02/02/25 08:08 Dose: 5 mg Documented By: ASHLEIGH Atorvastatin Calcium (Atorvastatin Calcium 80 Mg Tablet) 80 mg PO BEDTIME [facility] Last Admin: 02/01/25 20:55 Dose: 80 mg Documented By: ROBSON Calcium Carbonate (Calcium Carbonate 750 Mg Tab.Chew) 750 mg PO Q4H PRN PRN Reason: Heartburn Cyanocobalamin (Cyanocobalamin (Vitamin B-12) 500 Mcg Tablet) 500 mcg PO DAILY [facility] Last Admin: 02/02/25 08:07 Dose: 500 mcg Documented By: ASHLEIGH Dextrose (Dextrose 50 % 25 Gm/50 Ml Syringe) 25 gm IVPUSH Q15M PRN; Protocol PRN Reason: per Hypoglycemia Standing Ord. Gabapentin (Gabapentin 100 Mg Capsule) 100 mg PO BID [facility] Last Admin: 02/02/25 08:07 Dose: 100 mg Documented By: ASHLEIGH Glucose (Glucose Gel 15 Gm Gel..Gram.) 15 gm PO Q15M PRN; Protocol PRN Reason: per Hypoglycemia Standing Ord. Ceftriaxone Sodium 1 gm/ (Sodium Chloride) 50 mls @ 100 mls/hr IV Q24H [facility] Insulin Glargine (Insulin Glargine,Hum.Rec.Anlog 100 Unit/Ml 10 Ml Vial) 7 unit SUBCUT BEDTIME [facility] Last Admin: 02/01/25 20:57 Dose: 7 unit Documented By: ROBSON Insulin Human Lispro (Insulin Lispro 100 Unit/Ml 3 Ml Vial) 0 unit SUBCUT QIDACHS [facility]; Protocol Last Admin: 02/02/25 08:05 Dose: Not Given Documented By: ASHLEIGH Non-Admin Reason: No Insulin Coverage Lisinopril (Lisinopril 5 Mg Tablet) 5 mg PO BEDTIME [facility]; Protocol Last Admin: 02/01/25 20:55 Dose: 5 mg Documented By: ROBSON Magnesium Hydroxide (Milk Of Magnesia 30 Ml Oral.Susp) 30 ml PO DAILY PRN PRN Reason: Constipation Melatonin (Melatonin 3 Mg Tablet) 6 mg PO BEDTIME PRN PRN Reason: Insomnia Last Admin: 02/01/25 23:48 Dose: 6 mg Documented By: ROBSON Metoprolol Tartrate (Metoprolol Tartrate 25 Mg Tablet) 25 mg PO BID [facility]; Protocol Last Admin: 02/02/25 08:07 Dose: 25 mg Documented By: ASHLEIGH Sodium Chloride (0.9 % Sodium Chloride Flush 3 Ml Syringe) [facility] Last Admin: 02/02/25 08:06 Dose: 3 ml Documented By: ASHLEIGH Tamsulosin HCl (Tamsulosin Hcl 0.4 Mg Capsule) 0.8 mg PO DAILY [facility] Last Admin: 02/02/25 08:06 Dose: 0.8 mg Documented By: ASHLEIGH Trazodone HCl (Trazodone Hcl 50 Mg Tablet) 50 mg PO BEDTIME [facility] Last Admin: 02/01/25 20:56 Dose: 50 mg Documented By: ROBSON Vitamin D (Cholecalciferol (Vitamin D3) 25 Mcg Tablet) 50 mcg PO DAILY [facility] Last Admin: 02/02/25 08:07 Dose: 50 mcg Documented By: ASHLEIGH Labs 02/01/25 10:06 02/01/25 10:07 Labs: Laboratory Results - last 24 hr 02/01/25 02/01/25 02/01/25 10:06 10:07 10:14 MCV 93.8 MCH 29.5 MCHC 31.5 RDW 14.0 Plt Count 195 MPV 11.8 Immature Gran % (Auto) 0.3 Neut % (Auto) 70.4 Lymph % (Auto) 21.4 [place] % (Auto) 6.5 Eos % (Auto) 0.9 Baso % (Auto) 0.5 Lymph # (Auto) 2.1 [place] # (Auto) 0.7 Eos # (Auto) 0.1 Baso # (Auto) 0.1 Abs Immat Gran (auto) 0.03 Absolute Neuts (auto) 7.0 Absolute Nucleated RBC 0.000 Nucleated RBC % (auto) 0.0 PT 16.4 H INR 1.3 H VBG pH 7.44 H VBG pCO2 39 VBG pO2 58 VBG HCO3 27 H VBG O2 Saturation 89.0 VBG Base Excess 3.3 Anion Gap 11 L Estim Creat Clear Calc 53.0 Estimated GFR > 60 POC Glucose Random Glucose 206 H Lactic Acid 2.9 H* Lactic Acid F/U @ 2Hr Calcium 8.8 D Magnesium 1.9 Total Bilirubin 0.7 Direct Bilirubin 0.2 AST 40 H ALT 45 H Alkaline Phosphatase 139 H Total Creatine Kinase 225 H Troponin I High Sens 13.8 C-Reactive Protein < 0.04 Total Protein 6.6 Albumin 4.1 Lipase 26 Procalcitonin 0.03 TSH 1.57 Urine Color Urine Appearance Urine pH Ur Specific [place] Urine Protein Urine Glucose (UA) Urine Ketones Urine Blood Urine Nitrite Ur Leukocyte Esterase Urine RBC Urine WBC Ur Squamous Epith Cells Other Crystals Urine Bacteria Hyaline Casts Influenza Type A (PCR) NEGATIVE Influenza Type B (PCR) NEGATIVE RSV RNA Qual (PCR) NEGATIVE SARS-CoV-2 RNA (RT-PCR) NEGATIVE 02/01/25 02/01/25 02/01/25 12:07 14:11 17:49 MCV MCH MCHC RDW Plt Count MPV Immature Gran % (Auto) Neut % (Auto) Lymph % (Auto) [place] % (Auto) Eos % (Auto) Baso % (Auto) Lymph # (Auto) [place] # (Auto) Eos # (Auto) Baso # (Auto) Abs Immat Gran (auto) Absolute Neuts (auto) Absolute Nucleated RBC Nucleated RBC % (auto) PT INR VBG pH VBG pCO2 VBG pO2 VBG HCO3 VBG O2 Saturation VBG Base Excess Anion Gap Estim Creat Clear Calc Estimated GFR POC Glucose 138 H Random Glucose Lactic Acid Lactic Acid F/U @ 2Hr 1.8 Calcium Magnesium Total Bilirubin Direct Bilirubin AST ALT Alkaline Phosphatase Total Creatine Kinase Troponin I High Sens C-Reactive Protein Total Protein Albumin Lipase Procalcitonin TSH Urine Color Yellow Urine Appearance Cloudy Urine pH 6.0 Ur Specific [place] 1.010 Urine Protein 30 (1+) H Urine Glucose (UA) 100 H Urine Ketones Negative Urine Blood Large (3+) H Urine Nitrite Positive H Ur Leukocyte Esterase Large (3+) H Urine RBC 3-5 H Urine WBC >50 H Ur Squamous Epith Cells 0-2 Other Crystals Present Urine Bacteria 4+ Hyaline Casts 0-2 Influenza Type A (PCR) Influenza Type B (PCR) RSV RNA Qual (PCR) SARS-CoV-2 RNA (RT-PCR) 02/01/25 02/02/25 20:43 07:46 MCV MCH MCHC RDW Plt Count MPV Immature Gran % (Auto) Neut % (Auto) Lymph % (Auto) [place] % (Auto) Eos % (Auto) Baso % (Auto) Lymph # (Auto) [place] # (Auto) Eos # (Auto) Baso # (Auto) Abs Immat Gran (auto) Absolute Neuts (auto) Absolute Nucleated RBC Nucleated RBC % (auto) PT INR VBG pH VBG pCO2 VBG pO2 VBG HCO3 VBG O2 Saturation VBG Base Excess Anion Gap Estim Creat Clear Calc Estimated GFR POC Glucose 129 H 123 H Random Glucose Lactic Acid Lactic Acid F/U @ 2Hr Calcium Magnesium Total Bilirubin Direct Bilirubin AST ALT Alkaline Phosphatase Total Creatine Kinase Troponin I High Sens C-Reactive Protein Total Protein Albumin Lipase Procalcitonin TSH Urine Color Urine Appearance Urine pH Ur Specific [place] Urine Protein Urine Glucose (UA) Urine Ketones Urine Blood Urine Nitrite Ur Leukocyte Esterase Urine RBC Urine WBC Ur Squamous Epith Cells Other Crystals Urine Bacteria Hyaline Casts Influenza Type A (PCR) Influenza Type B (PCR) RSV RNA Qual (PCR) SARS-CoV-2 RNA (RT-PCR) Assessment and Plan (1) Atherosclerotic cardiovascular disease: Status: Acute Plan 84M PMH unspecified dementia, paroxysmal AFib on Eliquis, hypertension, GERD, depression, diabetes, coronary artery disease presented with fall and altered mental status Acute toxic metabolic encephalopathy due to urinary tract infection Continue ceftriaxone, follow up cultures Unwitnessed fall Likely due to above, physical therapy eval Uncontrolled hypertension Continue metoprolol, lisinopril Diabetes Basal bolus insulin Paroxysmal AFib Metoprolol, Eliquis CAD Eliquis, statin BPH Flomax DVT prophylaxis with Eliquis Full code reason for continued hospitalization: Cultures pending Quality Stroke Does the patient have a stroke diagnosis?: No VTE Prior VTE?: No VTE Risk Level:: Medical - moderate - high VTE Device Contraindication: N/A - Device Ordered VTE Drug Contraindication: N/A - Med Ordered
[2025-02-02 11:21] LABS: Glucose, Whole Blood 156 mg/dL (60-115)
--- NOTE | 2025-02-02 16:09 | MHC.CM.PN ---
Addendum entered by Daiana Cedillo 02/03/25 09:06: PER [facility], THERE ARE ONLY 6 SNFS WITHIN [address] THAT ARE CONTRACTED WITH PTS INSURANCE, [facility]URAL[facility] SWAIN, 4 OF THOSE FACILITIES NO LONGER EXIST. [facility], [facility] HAS DECLINED INDICATING THEY ARE NOT CONTRACTED WITH [facility]. 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 SHE DID REQUEST [facility], HOWEVER CM EXPLAINED THE REFERRAL WOULD BE BROADCAST THROUGH THE STATE A LTC BED WILL BE DIFFICULT TO FIND. HE WILL NEED BLS TRANSPORT
[2025-02-02 16:12] LABS: Glucose, Whole Blood 164 mg/dL (60-115)
[2025-02-02 21:04] LABS: Glucose, Whole Blood 119 mg/dL (60-115)
[2025-02-02] MEDS: Insulin Glargine,Hum.rec.anlog 100 UNIT/ML 10 ML VIAL 7 UNIT SUBCUT (21:06)
[2025-02-03] VITALS: BP 141/65; PULSE 93; RESP 20; TEMP 37.1; O2SAT 97
[2025-02-03 03:41] VITALS: BP 133/85; PULSE 95; RESP 20; TEMP 37.4; O2SAT 95
[2025-02-03 06:58] VITALS: BP 142/73; PULSE 95; RESP 18; TEMP 37.3; O2SAT 96
[2025-02-03 07:21] LABS: Hematocrit 34.7 % (42.0-52.0); Hemoglobin 11.5 g/dl (14.0-18.0); Mean Corpuscular HGB Conc 33.1 g/dl (31.0-36.0); Mean Corpuscular Hemoglobin 30.4 pg (27.0-33.0); Mean Corpuscular Volume 91.8 fL (80.0-98.0); NRBC Abs Auto 0.000 X10*3/uL (0.0-0.012); NRBC Pct Auto 0.0 /100WBC (0.0-0.2); Platelet Count 198 X10*3/uL (160-400); Red Blood Count 3.78 X10*6/uL (4.60-5.80); White Blood Count 7.1 X10*3/uL (4.8-10.8)
[2025-02-03 07:32] LABS: Glucose, Whole Blood 98 mg/dL (60-115)
[2025-02-03 07:38] LABS: Anion Gap 10 (12-20); Blood Urea Nitrogen 20 mg/dL (9-16); Calcium 8.6 mg/dL (8.4-10.2); Carbon Dioxide 29 mmol/L (22-29); Chloride 109 mmol/L (96-108); Creatinine Clr Calc Pharmacy 57.0; Estimated Glomerular Filt Rate > 60; Potassium 3.9 mmol/L (3.3-5.1); Sodium 144 mmol/L (135-145)
[2025-02-03] MEDS: 0.9 % Sodium Chloride Flush 3 ML SYRINGE IVFLUSH ×3 (08:54→20:27)
--- NOTE | 2025-02-03 09:38 | HO.PM.IMPN ---
Subjective Subjective Date of Service: 02/03/25 Interval History: no complaints, needs constant reminders to not get up without assitance or pull at lines Physical Exam Exam: Exam: General: AO X 1, no acute distress Resp: CTA bilateral, no accessory muscles used CVS: S1,S2,RRR GI: soft, non tender, non distended Neuro: motor grossly intact, alert Psych: appropriate affect, impaired insight Vital Signs: Vital Signs: Last Vital Signs Temp 99.1 F 02/03/25 06:58 Pulse 95 02/03/25 06:58 Resp 18 02/03/25 06:58 BP 142/73 H 02/03/25 06:58 Pulse Ox 96 02/03/25 06:58 O2 Del Method Room Air 02/03/25 06:58 BMI result Body Mass Index 24.5 Objective Data Active Medications Acetaminophen (Acetaminophen 325 Mg Tablet) 650 mg PO Q6H PRN PRN Reason: Pain, Mild 1-3,fever,headache Apixaban (Apixaban 5 Mg Tablet) 5 mg PO BID [facility] Last Admin: 02/03/25 08:55 Dose: 5 mg Documented By: ASHLEIGH Atorvastatin Calcium (Atorvastatin Calcium 80 Mg Tablet) 80 mg PO BEDTIME [facility] Last Admin: 02/02/25 20:54 Dose: 80 mg Documented By: SHANICE Calcium Carbonate (Calcium Carbonate 750 Mg Tab.Chew) 750 mg PO Q4H PRN PRN Reason: Heartburn Cyanocobalamin (Cyanocobalamin (Vitamin B-12) 500 Mcg Tablet) 500 mcg PO DAILY [facility] Last Admin: 02/03/25 08:54 Dose: 500 mcg Documented By: ASHLEIGH Dextrose (Dextrose 50 % 25 Gm/50 Ml Syringe) 25 gm IVPUSH Q15M PRN; Protocol PRN Reason: per Hypoglycemia Standing Ord. Gabapentin (Gabapentin 100 Mg Capsule) 100 mg PO BID [facility] Last Admin: 02/03/25 08:55 Dose: 100 mg Documented By: ASHLEIGH Glucose (Glucose Gel 15 Gm Gel..Gram.) 15 gm PO Q15M PRN; Protocol PRN Reason: per Hypoglycemia Standing Ord. Ceftriaxone Sodium 1 gm/ (Sodium Chloride) 50 mls @ 100 mls/hr IV Q24H [facility] Last Infusion: 02/02/25 12:44 Dose: Infused Documented By: ASHLEIGH Insulin Glargine (Insulin Glargine,Hum.Rec.Anlog 100 Unit/Ml 10 Ml Vial) 7 unit SUBCUT BEDTIME [facility] Last Admin: 02/02/25 21:06 Dose: 7 unit Documented By: SHANICE Insulin Human Lispro (Insulin Lispro 100 Unit/Ml 3 Ml Vial) 0 unit SUBCUT QIDACHS [facility]; Protocol Last Admin: 02/03/25 08:50 Dose: Not Given Documented By: ASHLEIGH Non-Admin Reason: No Insulin Coverage Lisinopril (Lisinopril 5 Mg Tablet) 5 mg PO BEDTIME [facility]; Protocol Last Admin: 02/02/25 20:54 Dose: 5 mg Documented By: SHANICE Magnesium Hydroxide (Milk Of Magnesia 30 Ml Oral.Susp) 30 ml PO DAILY PRN PRN Reason: Constipation Melatonin (Melatonin 3 Mg Tablet) 6 mg PO BEDTIME PRN PRN Reason: Insomnia Last Admin: 02/02/25 20:54 Dose: 6 mg Documented By: SHANICE Metoprolol Tartrate (Metoprolol Tartrate 25 Mg Tablet) 25 mg PO BID [facility]; Protocol Last Admin: 02/03/25 08:54 Dose: 25 mg Documented By: ASHLEIGH Sodium Chloride (0.9 % Sodium Chloride Flush 3 Ml Syringe) [facility] Last Admin: 02/03/25 08:54 Dose: 3 ml Documented By: ASHLEIGH Tamsulosin HCl (Tamsulosin Hcl 0.4 Mg Capsule) 0.8 mg PO DAILY [facility] Last Admin: 02/03/25 08:55 Dose: 0.8 mg Documented By: ASHLEIGH Trazodone HCl (Trazodone Hcl 50 Mg Tablet) 50 mg PO BEDTIME [facility] Last Admin: 02/02/25 20:55 Dose: 50 mg Documented By: SHANICE Vitamin D (Cholecalciferol (Vitamin D3) 25 Mcg Tablet) 50 mcg PO DAILY [facility] Last Admin: 02/03/25 08:55 Dose: 50 mcg Documented By: ASHLEIGH Labs 02/03/25 06:56 02/03/25 06:56 Labs: Laboratory Results - last 24 hr 02/02/25 02/02/25 02/02/25 11:16 16:03 20:56 MCV MCH MCHC RDW Plt Count MPV Absolute Nucleated RBC Nucleated RBC % (auto) Anion Gap Estim Creat Clear Calc Estimated GFR POC Glucose 156 H 164 H 119 H Random Glucose Calcium 02/03/25 02/03/25 06:56 07:27 MCV 91.8 MCH 30.4 MCHC 33.1 RDW 14.2 Plt Count 198 MPV 11.9 Absolute Nucleated RBC 0.000 Nucleated RBC % (auto) 0.0 Anion Gap 10 L Estim Creat Clear Calc 57.0 Estimated GFR > 60 POC Glucose 98 Random Glucose 104 Calcium 8.6 Microbiology Microbiology Results: Microbiology 02/01/25 10:07 Blood Culture - Preliminary Blood - Venous No growth after 24 hours. 02/01/25 10:06 Blood Culture - Preliminary Blood - Venous No growth after 24 hours. 02/01/25 Unknown Urine Culture - Final Urine clean catch - Clean Catch Midstream Assessment and Plan (1) Atherosclerotic cardiovascular disease: Status: Acute Plan 84M PMH unspecified dementia, paroxysmal AFib on Eliquis, hypertension, GERD, depression, diabetes, coronary artery disease presented with fall and altered mental status Acute toxic metabolic encephalopathy due to urinary tract infection Continue ceftriaxone, cultures with mixed sandra, can use ceftin empirically on discharge Unwitnessed fall Likely due to above, physical therapy recommending STR Uncontrolled hypertension Continue metoprolol, lisinopril Diabetes Basal bolus insulin Paroxysmal AFib Metoprolol, Eliquis CAD Eliquis, statin BPH Flomax DVT prophylaxis with Eliquis Full code reason for continued hospitalization: dispo planning Quality Stroke Does the patient have a stroke diagnosis?: No VTE Prior VTE?: No VTE Risk Level:: Medical - moderate - high VTE Device Contraindication: N/A - Device Ordered VTE Drug Contraindication: N/A - Med Ordered
[2025-02-03 11:19] LABS: Glucose, Whole Blood 113 mg/dL (60-115)
[2025-02-03 11:36] VITALS: BP 160/70; PULSE 87; RESP 18; TEMP 36.2; O2SAT 96
[2025-02-03 13:15] LABS: Glucose, Whole Blood 221 mg/dL (60-115)
[2025-02-03 15:29] VITALS: BP 136/89; PULSE 56; RESP 18; TEMP 36.4; O2SAT 97
[2025-02-03 16:22] LABS: Glucose, Whole Blood 161 mg/dL (60-115)
[2025-02-03 20:00] VITALS: BP 139/64; PULSE 64; RESP 18; TEMP 36.7; O2SAT 96
[2025-02-03 21:10] LABS: Glucose, Whole Blood 145 mg/dL (60-115)
[2025-02-03] MEDS: Insulin Glargine,Hum.rec.anlog 100 UNIT/ML 10 ML VIAL 7 UNIT SUBCUT (21:15)
[2025-02-04] VITALS (9 sets, daily range): BP systolic 118–175; BP diastolic 61–87; PULSE 52–93; RESP 16–19; TEMP 36.1–37; O2SAT 94–99
[2025-02-04 07:44] LABS: Glucose, Whole Blood 113 mg/dL (60-115)
[2025-02-04] MEDS: 0.9 % Sodium Chloride Flush 3 ML SYRINGE IVFLUSH ×3 (08:02→20:55)
[2025-02-04 11:36] LABS: Glucose, Whole Blood 159 mg/dL (60-115)
--- NOTE | 2025-02-04 12:47 | MHC.CM.PN ---
JAY spoke with Monalisa from [facility] ([phone])regarding dc planning; Silvia requested to be notified of final dc plan. CM will follow.
--- NOTE | 2025-02-04 15:28 | HO.PM.IMPN ---
Subjective Subjective Date of Service: 02/04/25 Interval History: No acute issues overnight. Remains pleasantly confused Review of Systems Denies chest pain Denies shortness of breath Denies nausea vomiting diarrhea Denies fever chills Physical Exam Vital Signs: Vital Signs: Last Vital Signs Temp 97 F 02/04/25 12:00 Pulse 59 02/04/25 12:00 Resp 17 02/04/25 12:00 BP 118/61 02/04/25 12:00 Pulse Ox 94 02/04/25 12:00 O2 Del Method Room Air 02/04/25 07:31 BMI result Body Mass Index 24.5 Const: Other: Awake alert no acute distress Resp: Other: Clear to auscultation bilaterally no rales rhonchi or wheezes Cardio: Other: No S4; positive S1-S2; no S3 murmurs rubs or gallops GI: Other: Soft nontender nondistended normoactive bowel sounds Extrem: Other: No edema bilaterally Objective Data Active Medications Acetaminophen (Acetaminophen 325 Mg Tablet) 650 mg PO Q6H PRN PRN Reason: Pain, Mild 1-3,fever,headache Apixaban (Apixaban 5 Mg Tablet) 5 mg PO BID [facility] Last Admin: 02/04/25 08:01 Dose: 5 mg Documented By: ASHLEIGH Atorvastatin Calcium (Atorvastatin Calcium 80 Mg Tablet) 80 mg PO BEDTIME [facility] Last Admin: 02/03/25 20:25 Dose: 80 mg Documented By: SADAF Calcium Carbonate (Calcium Carbonate 750 Mg Tab.Chew) 750 mg PO Q4H PRN PRN Reason: Heartburn Cyanocobalamin (Cyanocobalamin (Vitamin B-12) 500 Mcg Tablet) 500 mcg PO DAILY [facility] Last Admin: 02/04/25 08:01 Dose: 500 mcg Documented By: ASHLEIGH Dextrose (Dextrose 50 % 25 Gm/50 Ml Syringe) 25 gm IVPUSH Q15M PRN; Protocol PRN Reason: per Hypoglycemia Standing Ord. Gabapentin (Gabapentin 100 Mg Capsule) 100 mg PO BID [facility] Last Admin: 02/04/25 08:02 Dose: 100 mg Documented By: ASHLEIGH Glucose (Glucose Gel 15 Gm Gel..Gram.) 15 gm PO Q15M PRN; Protocol PRN Reason: per Hypoglycemia Standing Ord. Ceftriaxone Sodium 1 gm/ (Sodium Chloride) 50 mls @ 100 mls/hr IV Q24H [facility] Last Infusion: 02/04/25 12:50 Dose: Infused Documented By: ASHLEIGH Insulin Glargine (Insulin Glargine,Hum.Rec.Anlog 100 Unit/Ml 10 Ml Vial) 7 unit SUBCUT BEDTIME [facility] Last Admin: 02/03/25 21:15 Dose: 7 unit Documented By: SADAF Insulin Human Lispro (Insulin Lispro 100 Unit/Ml 3 Ml Vial) 0 unit SUBCUT QIDACHS [facility]; Protocol Last Admin: 02/04/25 11:55 Dose: 2 unit Documented By: ASHLEIGH Lisinopril (Lisinopril 5 Mg Tablet) 5 mg PO BEDTIME [facility]; Protocol Last Admin: 02/03/25 20:25 Dose: 5 mg Documented By: SADAF Magnesium Hydroxide (Milk Of Magnesia 30 Ml Oral.Susp) 30 ml PO DAILY PRN PRN Reason: Constipation Melatonin (Melatonin 3 Mg Tablet) 6 mg PO BEDTIME PRN PRN Reason: Insomnia Last Admin: 02/03/25 20:25 Dose: 6 mg Documented By: SADAF Metoprolol Tartrate (Metoprolol Tartrate 25 Mg Tablet) 25 mg PO BID [facility]; Protocol Last Admin: 02/04/25 08:01 Dose: 25 mg Documented By: ASHLEIGH Sodium Chloride (0.9 % Sodium Chloride Flush 3 Ml Syringe) 3 ml [facility]USH [facility] Last Admin: 02/04/25 08:02 Dose: 3 ml Documented By: ASHLEIGH Tamsulosin HCl (Tamsulosin Hcl 0.4 Mg Capsule) 0.8 mg PO DAILY [facility] Last Admin: 02/04/25 08:02 Dose: 0.8 mg Documented By: ASHLEIGH Trazodone HCl (Trazodone Hcl 50 Mg Tablet) 50 mg PO BEDTIME [facility] Last Admin: 02/03/25 20:25 Dose: 50 mg Documented By: SADAF Vitamin D (Cholecalciferol (Vitamin D3) 25 Mcg Tablet) 50 mcg PO DAILY [facility] Last Admin: 02/04/25 08:02 Dose: 50 mcg Documented By: ASHLEIGH Labs 02/03/25 06:56 02/03/25 06:56 Labs: Laboratory Results - last 24 hr 02/03/25 02/03/25 02/04/25 16:10 20:57 07:39 POC Glucose 161 H 145 H 113 02/04/25 11:31 POC Glucose 159 H Microbiology Microbiology Results: Microbiology 02/01/25 10:07 Blood Culture - Preliminary Blood - Venous No growth after 48 hours. 02/01/25 10:06 Blood Culture - Preliminary Blood - Venous No growth after 48 hours. Assessment and Plan (1) Acute metabolic encephalopathy: Status: Acute (2) Acute UTI: Status: Acute (3) Type 2 diabetes mellitus with unspecified complications: Status: Acute Plan 84M PMH unspecified dementia, paroxysmal AFib on Eliquis, hypertension, GERD, depression, diabetes, coronary artery disease presented with fall and altered mental status 1.Acute toxic metabolic encephalopathy due to urinary tract infection -continue ceftriaxone(3) -switch to Ceftin upon DC 2.Unwitnessed fall -likely related to UTI -physical therapy recommending STR 3.Hypertension -acceptable control on current therapies -adjust as indicated 4.Diabetes type 2 -acceptable control on current therapy -lispro correctional scale -adjust as indicated 5.Paroxysmal AFib -examined and normal sinus rhythm -continue Eliquis/beta blockade Eliquis Full code reason for continued hospitalization: dispo planning Quality Stroke Does the patient have a stroke diagnosis?: No VTE Prior VTE?: No VTE Risk Level:: Medical - moderate - high VTE Device Contraindication: N/A - Device Ordered VTE Drug Contraindication: N/A - Med Ordered
[2025-02-04 16:19] LABS: Glucose, Whole Blood 124 mg/dL (60-115)
[2025-02-04 20:00] LABS: Glucose, Whole Blood 162 mg/dL (60-115)
[2025-02-04] MEDS: Insulin Glargine,Hum.rec.anlog 100 UNIT/ML 10 ML VIAL 7 UNIT SUBCUT (20:48)
[2025-02-05 03:44] VITALS: BP 160/89; PULSE 70; RESP 18; TEMP 36.6; O2SAT 97
[2025-02-05 07:25] LABS: Glucose, Whole Blood 105 mg/dL (60-115)
[2025-02-05 07:26] VITALS: BP 172/80; PULSE 69; RESP 16; TEMP 36.1; O2SAT 97
[2025-02-05] MEDS: 0.9 % Sodium Chloride Flush 3 ML SYRINGE IVFLUSH ×3 (09:30→20:23)
[2025-02-05 11:48] LABS: Glucose, Whole Blood 193 mg/dL (60-115)
[2025-02-05 12:00] VITALS: BP 137/58; PULSE 54; RESP 20; TEMP 36.8; O2SAT 99
--- NOTE | 2025-02-05 14:21 | P.PNIM_ITS ---
Subjective Subjective Date of Service: 02/05/25 Interval History: No acute issues overnight Review of Systems Denies chest pain Denies shortness of breath Denies nausea vomiting diarrhea Denies fever chills Physical Exam 2 Vital Signs: Vital Signs: Last Vital Signs Temp 98.3 F 02/05/25 12:00 Pulse 54 02/05/25 12:00 Resp 20 02/05/25 12:00 BP 137/58 L 02/05/25 12:00 Pulse Ox 99 02/05/25 12:00 O2 Del Method Room Air 02/05/25 12:00 BMI result Body Mass Index 24.5 Const: Other: Awake alert no acute distress Resp: Other: Clear to auscultation bilaterally no rales rhonchi or wheezes Cardio: Other: No S4; positive S1-S2; no S3 murmurs rubs or gallops GI: Other: Soft nontender nondistended normoactive bowel sounds Extrem: Other: No edema bilaterally Objective Data Active Medications Acetaminophen (Acetaminophen 325 Mg Tablet) 650 mg PO Q6H PRN PRN Reason: Pain, Mild 1-3,fever,headache Apixaban (Apixaban 5 Mg Tablet) 5 mg PO BID [facility] Last Admin: 02/05/25 09:31 Dose: 5 mg Documented By: CHIKA Atorvastatin Calcium (Atorvastatin Calcium 80 Mg Tablet) 80 mg PO BEDTIME [facility] Last Admin: 02/04/25 20:47 Dose: 80 mg Documented By: SUMEET Calcium Carbonate (Calcium Carbonate 750 Mg Tab.Chew) 750 mg PO Q4H PRN PRN Reason: Heartburn Cyanocobalamin (Cyanocobalamin (Vitamin B-12) 500 Mcg Tablet) 500 mcg PO DAILY [facility] Last Admin: 02/05/25 09:32 Dose: 500 mcg Documented By: CHIKA Dextrose (Dextrose 50 % 25 Gm/50 Ml Syringe) 25 gm IVPUSH Q15M PRN; Protocol PRN Reason: per Hypoglycemia Standing Ord. Gabapentin (Gabapentin 100 Mg Capsule) 100 mg PO BID [facility] Last Admin: 02/05/25 09:32 Dose: 100 mg Documented By: CHIKA Glucose (Glucose Gel 15 Gm Gel..Gram.) 15 gm PO Q15M PRN; Protocol PRN Reason: per Hypoglycemia Standing Ord. Ceftriaxone Sodium 1 gm/ (Sodium Chloride) 50 mls @ 100 mls/hr IV Q24H [facility] Last Infusion: 02/05/25 12:45 Dose: Infused Documented By: CHIKA Insulin Glargine (Insulin Glargine,Hum.Rec.Anlog 100 Unit/Ml 10 Ml Vial) 7 unit SUBCUT BEDTIME [facility] Last Admin: 02/04/25 20:48 Dose: 7 unit Documented By: SUMEET Insulin Human Lispro (Insulin Lispro 100 Unit/Ml 3 Ml Vial) 0 unit SUBCUT QIDACHS [facility]; Protocol Last Admin: 02/05/25 12:15 Dose: 2 unit Documented By: CHIKA Lisinopril (Lisinopril 5 Mg Tablet) 5 mg PO BEDTIME [facility]; Protocol Last Admin: 02/04/25 20:47 Dose: 5 mg Documented By: SUMEET Magnesium Hydroxide (Milk Of Magnesia 30 Ml Oral.Susp) 30 ml PO DAILY PRN PRN Reason: Constipation Melatonin (Melatonin 3 Mg Tablet) 6 mg PO BEDTIME PRN PRN Reason: Insomnia Last Admin: 02/04/25 20:47 Dose: 6 mg Documented By: SUMEET Metoprolol Tartrate (Metoprolol Tartrate 25 Mg Tablet) 25 mg PO BID [facility]; Protocol Last Admin: 02/05/25 09:31 Dose: 25 mg Documented By: CHIKA Sodium Chloride (0.9 % Sodium Chloride Flush 3 Ml Syringe) [facility] Admin: 02/05/25 09:30 Dose: 3 ml Documented By: CHIKA Tamsulosin HCl (Tamsulosin Hcl 0.4 Mg Capsule) 0.8 mg PO DAILY [facility] Last Admin: 02/05/25 09:31 Dose: 0.8 mg Documented By: CHIKA Trazodone HCl (Trazodone Hcl 50 Mg Tablet) 50 mg PO BEDTIME [facility] Last Admin: 02/04/25 20:47 Dose: 50 mg Documented By: SUMEET Vitamin D (Cholecalciferol (Vitamin D3) 25 Mcg Tablet) 50 mcg PO DAILY [facility] Last Admin: 02/05/25 09:31 Dose: 50 mcg Documented By: CHIKA Labs 02/03/25 06:56 02/03/25 06:56 Labs: Laboratory Results - last 24 hr 02/04/25 02/04/25 02/05/25 16:10 19:44 07:21 POC Glucose 124 H 162 H 105 02/05/25 11:32 POC Glucose 193 H Assessment and Plan (1) Acute metabolic encephalopathy: Status: Acute (2) Acute UTI: Status: Acute Plan 84M PMH unspecified dementia, paroxysmal AFib on Eliquis, hypertension, GERD, depression, diabetes, coronary artery disease presented with fall and altered mental status 1.Acute toxic metabolic encephalopathy due to urinary tract infection -continue ceftriaxone(4) -switch to Ceftin upon DC 2.Unwitnessed fall -likely related to UTI -physical therapy recommending STR.. Bed authorization pending 3.Hypertension -acceptable control on current therapies -adjust as indicated 4.Diabetes type 2 -acceptable control on current therapy -lispro correctional scale -adjust as indicated 5.Paroxysmal AFib -examined and normal sinus rhythm -continue Eliquis/beta blockade Eliquis Full code reason for continued hospitalization: dispo planning Quality Stroke Does the patient have a stroke diagnosis?: No VTE Prior VTE?: No VTE Risk Level:: Medical - moderate - high VTE Device Contraindication: N/A - Device Ordered VTE Drug Contraindication: N/A - Med Ordered
--- NOTE | 2025-02-05 14:59 | MHC.CM.PN ---
Per MD, Patient is medically cleared for dc to SNF/[facility]; [facility] has submitted for insurance auth. CM will continue to follow.
[2025-02-05 15:24] VITALS: BP 161/68; PULSE 65; RESP 18; TEMP 36.8; O2SAT 97
[2025-02-05 16:20] LABS: Glucose, Whole Blood 135 mg/dL (60-115)
[2025-02-05 19:32] VITALS: BP 182/71; PULSE 84; RESP 18; O2SAT 94
[2025-02-05] MEDS: Insulin Glargine,Hum.rec.anlog 100 UNIT/ML 10 ML VIAL 7 UNIT SUBCUT (20:23)
[2025-02-05 20:30] LABS: Glucose, Whole Blood 161 mg/dL (60-115)
[2025-02-05 23:56] VITALS: BP 170/85; PULSE 76; RESP 18; TEMP 37; O2SAT 96
[2025-02-06 03:11] VITALS: BP 175/74; PULSE 57; RESP 18; TEMP 36.3; O2SAT 98
[2025-02-06 07:57] LABS: Glucose, Whole Blood 123 mg/dL (60-115)
[2025-02-06 08:00] VITALS: BP 150/58; PULSE 61; RESP 20; TEMP 36.7; O2SAT 95
[2025-02-06 09:50] VITALS: BP 150/58; PULSE 86
[2025-02-06] MEDS: 0.9 % Sodium Chloride Flush 3 ML SYRINGE IVFLUSH (09:51)
[2025-02-06 11:30] LABS: Glucose, Whole Blood 169 mg/dL (60-115)
[2025-02-06 12:00] VITALS: BP 154/62; PULSE 60; RESP 18; TEMP 36.6; O2SAT 99
--- NOTE | 2025-02-06 12:06 | MHC.CM.PN ---
Addendum entered by Angelique Steele 02/06/25 12:18: CM left a detailed message for BRYNN/Monalisa @ [phone], informing her of the dc plan. Original Note: Per MD, Patient is medically cleared for dc to SNF/[facility] today. [facility], via [facility]. CM informed Patient of the dc plan and he is agreeable; per his request, JAY spoke with Daughter/Melina @ [phone] as well. Daughter hoped for a facility closer to her in [place]; CM explained that referrals were made to the [facility] facilities that accept Patient's insurance and that [facility], [place] is the only accepting facility.
--- NOTE | 2025-02-06 14:03 | PM.DS ---
DS: Providers Provider Date of Service: 02/06/25 Date of admission: 02/01/25 13:56 Date of discharge: 02/06/25 Primary care physician: Shellie Moser MD DS: Diagnosis Discharge Diagnosis (1) Acute metabolic encephalopathy: Status: Acute (2) Acute UTI: Status: Acute DS: Summary Hospital Course Hospital Course: 84-year-old male with multiple medical issues who was brought to the emergency department after being found in the floor. He reportedly fell and hit his head although he is unable to recall the event. Patient has a history of underlying dementia and is overall a poor historian. He is reporting some right-sided back pain otherwise feels well. He denies any current dizziness. In the emergency department he was noted to have elevated lactic acid at 2.9, mild elevation in his LFTs. Urinalysis was consistent with UTI and he was treated with IV ceftriaxone. CT scan of the abdomen and pelvis showed wall thickening of the bladder and likely chronic outlet obstruction. The patient reports pain with urination but the duration of his symptoms are unclear. Of note patient was admitted to the hospital in the middle of December for encephalopathy due to UTI and was discharged to assisted facility on December 27. He was discharged from SNF 1-2 weeks ago and has been residing with his daughter. His daughter was unavailable to talk to at the time of admission, thus other details are limited. He is accompanied by his from who he is but remains involved in his care. She saw him over the weekend and reports that he is confused compared to the last time she saw him. Hospital Course Patient admitted to telemetry where monitor failed to demonstrate any acute arrhythmias. Was started on ceftriaxone 1 g Q 24 hours. Blood cultures were negative after 72 hours as well as urine culture. Upon further review urine culture was taken proximally 1.5 hours after 1st dose of antibiotic. Given his clinical improvement he was continued on ceftriaxone and will be discharged on course of oral Ceftin. He was seen by Physical therapy and deemed appropriate for assisted facility. At this point he is medically acceptable for same Time Attestation Discharge Coordination Time (in mins): 35 Quality: Safe Use of Opioids Does Pt have an Active Cancer Diagnosis on the Problem List?: No Quality: Stroke Does the patient have a stroke diagnosis?: No Physical Exam Vital Signs: Vital Signs: Last Vital Signs Temp 97.8 F 02/06/25 12:00 Pulse 60 02/06/25 12:00 Resp 18 02/06/25 12:00 BP 154/62 H 02/06/25 12:00 Pulse Ox 99 02/06/25 12:00 O2 Del Method Room Air 02/06/25 12:00 BMI result Body Mass Index 24.5 Const: Other: Awake alert no acute distress Resp: Other: Clear to auscultation bilaterally no rales rhonchi or wheezes Cardio: Other: No S4; positive S1-S2; no S3 murmurs rubs or gallops GI: Other: Soft nontender nondistended normoactive bowel sounds Extrem: Other: No edema bilaterally DS: Data Data Completed and Pending Completed studies during hospitalization [Text1]: Procedures Excision of Large Intestine, Via Natural or Artificial Opening Endoscopic, Diagnostic (12/19/24) Labs on day of discharge: Laboratory Results - last 24 hr 02/05/25 02/05/25 02/06/25 15:51 20:03 07:51 POC Glucose 135 H 161 H 123 H 02/06/25 11:25 POC Glucose 169 H Discharge Plan Discharge Anticipated Discharge Date/Time: 02/06/25 13:59 Patient Disposition: Xfer SNF Discharge Diagnosis: Acute metabolic encephalopathy secondary to UTI Referrals: [facility] [Other] - 1 Week Shellie Moser MD [Primary Care Provider, Internal Medicine] - 1 Week Discharge Medications: New cefuroxime axetil 250 mg tablet 250 mg PO BID 7 Days Qty: 14 0RF Continued trazodone 50 mg Tablet 50 mg PO BEDTIME cyanocobalamin (vitamin B-12) [Vitamin B-12] 500 mcg Tablet 500 mcg PO DAILY cholecalciferol (vitamin D3) [Vitamin D3] 50 mcg (2,000 unit) Capsule 50 mcg PO DAILY gabapentin 100 mg Capsule 100 mg PO BID Eliquis 5 mg Tablet 5 mg PO BID acetaminophen 325 mg Tablet 650 mg PO BID PRN (Reason: Fever Or Pain) lisinopril 5 mg Tablet 5 mg PO BEDTIME Protocol: Hold for SBP< HOLD for SBP < : 110 atorvastatin 80 mg tablet 80 mg PO BEDTIME metoprolol tartrate 25 mg Tablet 25 mg PO BID Qty: 1 0RF Protocol: Hold for SBP/HR < HOLD for SBP < : 90 HOLD for HR < : 60 insulin glargine [Lantus Solostar U-100 Insulin] 100 unit/mL (3 mL) insulin pen 10 unit subcut BEDTIME loperamide 2 mg Tablet 4 mg PO ONCE PRN (Reason: First Loose Stool) loperamide 2 mg Tablet 2 mg PO Q4H MDD 16mg PRN (Reason: Loose Stool) (DME) FreeStyle Test Strip See Rx Instructions .ROUTE .MEDSUPPLY Qty: 50 11RF Rx Instructions: As directed (DME) blood-glucose meter [FreeStyle Lite Meter] Kit See Rx Instructions .ROUTE .MEDSUPPLY Qty: 1 0RF Rx Instructions: As directed (DME) lancets [FreeStyle Lancets] 28 gauge misc See Rx Instructions .ROUTE .MEDSUPPLY Qty: 100 11RF Rx Instructions: As directed tamsulosin 0.4 mg capsule 0.8 mg PO DAILY Discharge Orders: Discharge Order (Routine); Ordered 02/06/25 Ordered By: Rodriguez Hernandez Diet: Advance to usual diet Activity on Discharge: As tolerated Stand Alone Forms: Patient Portal Discharge page Print Language: Kosovan Care Plan Goals: Continue all medicines as outlined on transfer sheet Health Concerns: Ceftin 250 mg twice daily for 7 days has been added to treat urinary tract infection Plan of Treatment: As per receiving facility Assessment: See discharge summary
--- NOTE | 2025-02-10 10:27 | P.CDIM_ITS ---
PROVIDER RESPONSE TEXT: To clarify, the appropriate diagnosis supported by the clinical indicators: Dementia: unspecified QUERY TEXT: PHYSICIAN'S DOCUMENTATION REQUEST Date of Query: 02/05/2025 07:11 AM EST Patient Name: Rey Gil Admit Date: 02/01/2025 Dear Rodriguez Hernandez DO, A review of the medical record indicates additional documentation may be needed. Please review below and update the documentation accordingly Clinical Indicators: Progress notes: Altered mental status, Dementia, confused, poor historian. Nursing notes; Patient found on the floor at home , does not recall falling or what caused the fall. If possible, please further clarify any further specifics regarding the documented Dementia for this admission: Dementia Vascular, frontal, progressive, senile, Lewy body, frontotemporal, etc. Other specifics Other (explain) Clinically unable to determine (explain) Thank you, Stella Carroll, CCS, CDIS Use of terms such as suspected, likely, concern for, or probable (associated with a specific diagnosis that is being evaluated, monitored, or treated as if it exists) are acceptable and can be coded in the inpatient setting, when documented at the time of discharge. Please use your independent medical judgment in providing your response. THIS QUERY IS PART OF THE PERMANENT MEDICAL RECORD
== END 2025-02-06 15:14 | disposition skilled nursing facility (03) | DRG 689 ==
LOC: HO.ED 12:43 → HO.EDOVER 13:57 → HO.IMC 23:49
PROVIDERS: Internal Medicine; Admitting Provider Physician Assistant Medical; Emergency Provider Emergency Medicine; PCP Internal Medicine; Visit Provider Hospitalist
DX: N39.0 Urinary tract infection, site not specified (principal); G92.8 Other toxic encephalopathy; I25.10 Atherosclerotic heart disease of native coronary artery without angina pectoris; W19.XXXA Unspecified fall, initial encounter; I48.0 Paroxysmal atrial fibrillation; E78.5 Hyperlipidemia, unspecified; F03.90 Unspecified dementia, unspecified severity, without behavioral disturbance, psychotic disturbance, mood disturbance, and anxiety; N40.0 Benign prostatic hyperplasia without lower urinary tract symptoms; E11.9 Type 2 diabetes mellitus without complications; Z20.822 Contact with and (suspected) exposure to COVID-19; Z87.440 Personal history of urinary (tract) infections; Z79.4 Long term (current) use of insulin; Z79.01 Long term (current) use of anticoagulants; Z79.899 Other long term (current) drug therapy
CPT/HCPCS: 36415; 70450; 71045; 72125; 74177; 80048; 80076; 81001; 82550; 82803; 82947; 83605; 83690; 83735; 84145; 84443; 84484; 85025; 85027; 85610; 86140; 87040; 87086; 87637; 93005; 97110; 97162; 97530; 99285; J0360; J0696; J7120; Q9967

== ENCOUNTER → 2025-02-01 09:40 | Outpatient (BNV) | payer OTHER, SELFPAY | PROVIDERS: Emergency Provider Emergency Medicine; Visit Provider Radiology Diagnostic Radiology | DX: K57.30 Diverticulosis of large intestine without perforation or abscess without bleeding (principal); N32.89 Other specified disorders of bladder; M47.812 Spondylosis without myelopathy or radiculopathy, cervical region; R53.1 Weakness; Z04.3 Encounter for examination and observation following other accident | CPT/HCPCS: 70450; 71045; 72125; 74177 ==

== ENCOUNTER → 2025-02-01 09:40 | Outpatient (BNV) | payer OTHER, SELFPAY | PROVIDERS: Admitting Provider Physician Assistant Medical; Emergency Provider Emergency Medicine; Visit Provider Internal Medicine | DX: I49.1 Atrial premature depolarization (principal) | CPT/HCPCS: 93010 ==

== ENCOUNTER → 2025-02-01 13:56 | Outpatient (BNV) | payer OTHER, SELFPAY | PROVIDERS: Admitting Provider Physician Assistant Medical; Emergency Provider Emergency Medicine; Visit Provider Physician Assistant Medical | DX: G93.41 Metabolic encephalopathy (principal); N39.0 Urinary tract infection, site not specified | CPT/HCPCS: 99223; 99232; 99233 ==

== ENCOUNTER 2025-02-11 17:59 | Emergency (ER) | payer OTHER, SELFPAY ==
--- OUTSIDE RECORDS SUMMARY | 2019-07-06 09:53 | XMS_ITS | Continuity of Care Document ---
Author Organization [facility] Address [address] [address] Phone Care Team Providers Care Ethylbenzene Converter Operator Name Role Phone Darron Tomlin DO Unavailable Unavailable Advance Directives Directive Yes / No Effective Date File Name No Information Encounters Encounter Description Practice Location Reason(s) For Visit Diagnoses Date Provider [facility], [address] [place] [address], [id number], [place] tel:[phone] [address] [place] [address] No Information 2019 Nabor Rob. [address] [place] [address], [id number], [place]. tel:[phone] Family History Family Member Type Diagnosis Age At Onset No Information Payers Payer name Insurance type Covered republican ID Authoriza tion(s) No Information Social History Type Description Quantity Date Captured Comments Sex Male Smoking Status No Information Chief Complaint And Reason For Visit No Information History Of Present Illness Encounter Date Complaint History Of Prese nt Illness No Information Instructions Date Instruction Additional Infor mation No Information Assessments Type Assessment Date No Information
--- NOTE | ~2025-02-11 | XR_ITS ---
CLINICAL HISTORY: Cough 1 view chest x-ray Comparison: CR/SR - XR CHEST 1 VIEW - 02/01/25 12:46 EST Findings: No consolidation or effusion. No pneumothorax. Heart size is mildly enlarged. No acute fracture. IMPRESSION: 1. No acute findings. This document has been electronically signed by: Sean Olguin MD on 02/11/2025 19:18:50
--- NOTE | ~2025-02-11 | CT_ITS ---
CLINICAL HISTORY: Fall CT cervical spine without contrast Comparison: CT/SR - CT CERVICAL SPINE WITHOUT IV CONTRAST - 02/01/25 11:33 EST Findings: Vertebral alignment is within normal limits. Multilevel degenerative change of the cervical spine. No acute fractures or dislocations. No acute findings on limited view of the intracranial contents. No cervical fluid collections or masses. No apical pneumothorax. IMPRESSION: No acute findings. This document has been electronically signed by: Sean Olguin MD on 02/11/2025 19:07:59
--- NOTE | ~2025-02-11 | CT_ITS ---
CLINICAL HISTORY: Fall CT head without contrast Comparison: CT/SR - CT HEAD WITHOUT IV CONTRAST - 02/01/25 11:33 EST Findings: No intra-axial mass, midline shift, hydrocephalus, or acute hemorrhage. Old lacunar infarct in the right basal ganglia. Moderate cerebral atrophy. Low attenuation in the periventricular white matter consistent with chronic small-vessel ischemic gliosis. There is no sinus or mastoid fluid. The orbits are within normal limits. No skull fracture. IMPRESSION: 1. No acute intracranial findings. This document has been electronically signed by: Sean Olguin MD on 02/11/2025 19:10:10
[2025-02-11 18:07] VITALS: BP 139/70; PULSE 80; O2SAT 98
--- NOTE | 2025-02-11 18:08 | ECG_ITS ---
Test Reason : fall Blood Pressure : */* mmHG Vent. Rate : 82 BPM Atrial Rate : 82 BPM P-R Int : 206 ms QRS Dur : 76 ms QT Int : 380 ms P-R-T Axes : 74 -7 2 degrees QTcB Int : 443 ms Sinus rhythm with Premature supraventricular complexes Minimal voltage criteria for LVH, may be normal variant ( R in aVL ) Septal infarct (cited on or before 01-Feb-2025) Abnormal ECG When compared with ECG of 01-Feb-2025 10:14, No significant changes seen Referred By: Steffi Hoyos Electronically Signed By: KATIA SIMON
[2025-02-11 18:09] VITALS: BP 134/52; PULSE 71; RESP 16; TEMP 37; O2SAT 98
[2025-02-11 18:13] VITALS: BP 134/52; PULSE 85; RESP 16; TEMP 37.1; O2SAT 97; BMI 28.2
--- NOTE | 2025-02-11 18:46 | ED.FALL ---
HPI - Fall General Chief Complaint: Fall Stated Complaint: unwitnessed fall, + thinners, -loc/head strike Time Seen by Provider: 02/11/25 18:08 History of Present Illness ED Provider: Steffi Hoyos NP HPI Narrative: 84-year-old male medical history that is significant for hypertension, hyperlipidemia, generalized muscle weakness, PVD, thoracic aortic aneurysm, abnormality in his gait at baseline, GERD, metabolic encephalopathy, paroxysmal atrial fibrillation chronically anticoagulated on Eliquis, prior UTIs, unspecified dementia, type 2 diabetes presents to the ED from the [facility] for evaluation of an unwitnessed fall. The patient is a poor historian, he is alert and oriented x3 to answer questions appropriately, but does not provide much history surrounding the fall. Given it was unwitnessed, head strike is unclear. LOC is unclear, but he does not recall the fall, so high clinical suspicion for this. He denies any chest pain or pressure, shortness of breath, abdominal pain, nausea or vomiting, urinary complaints. Otherwise has been feeling well. Related Data Home Medications ?Medication ?Instructions ?Recorded ?Confirmed tamsulosin 0.4 mg capsule 0.8 mg PO DAILY 12/10/19 02/01/25 acetaminophen 325 mg tablet 650 mg PO BID PRN Fever Or Pain 12/05/24 02/01/25 apixaban 5 mg tablet (Eliquis) 5 mg PO BID 12/05/24 02/01/25 atorvastatin 80 mg tablet 80 mg PO BEDTIME 12/05/24 02/01/25 cholecalciferol (vitamin D3) 50 50 mcg PO DAILY 12/05/24 02/01/25 mcg (2,000 unit) capsule (Vitamin D3) cyanocobalamin (vitamin B-12) 500 500 mcg PO DAILY 12/05/24 02/01/25 mcg tablet (Vitamin B-12) gabapentin 100 mg capsule 100 mg PO BID 12/05/24 02/01/25 lisinopril 5 mg tablet 5 mg PO BEDTIME 12/05/24 02/01/25 trazodone 50 mg tablet 50 mg PO BEDTIME 12/05/24 02/01/25 insulin glargine 100 unit/mL (3 10 unit subcut BEDTIME 02/01/25 02/01/25 mL) subcutaneous pen (Lantus Solostar U-100 Insulin) loperamide 2 mg tablet 2 mg PO Q4H PRN Loose Stool 02/01/25 02/01/25 loperamide 2 mg tablet 4 mg PO ONCE PRN First Loose Stool 02/01/25 02/01/25 Previous Rx's ?Medication ?Instructions ?Recorded blood sugar diagnostic (FreeStyle #50 ea 01/03/20 Test strips) blood-glucose meter (FreeStyle #1 ea 01/03/20 Lite Meter kit) lancets 28 gauge (FreeStyle #100 ea 01/03/20 Lancets) metoprolol tartrate 25 mg tablet 25 mg PO BID #1 tab 12/27/24 cefuroxime axetil 250 mg tablet 250 mg PO BID 7 days #14 tabs 02/06/25 cefpodoxime 200 mg tablet 200 mg PO Q12H 7 days #14 tabs 02/11/25 Allergies Allergy/AdvReac Type Severity Reaction Status Date / Time penicillin V Allergy Unknown Rash & Verified 02/11/25 18:15 Dizziness, rash and dizziness Review of Systems Review of Systems: ROS is otherwise negative unless mentioned in HPI. [facility] Past Medical History Medical History Dyslipidemia Thoracic aneurysm without mention of rupture Confusion Leukocytosis Infarction of right basal ganglia Peripheral vascular disease Hyperlipidemia Essential hypertension Type 2 diabetes mellitus with unspecified complications Hx of cataract Surgical History S/P cardiac cath (~12/2019) History of cataract surgery Hx of appendectomy Hx of cholecystectomy Hx of pyloroplasty Hx of vagotomy Family History Family History Father Throat cancer Mother Medical history unknown Brother No problems noted. Social History Social History Household Members: Unknown / Unable to assess Housing: Unknown / Unable to assess Are you a primary animal caretaker supervisor to a significant other at home: No Do you presently have visiting nurse or other home services: No Alcohol intake: never Comment: 1:1 sitter Patient Tobacco Use Status: Former Tobacco user Smoked in Last 30 Days: No Second Hand Smoke Exposure: No Use of substances other than those prescribed or required for medical reasons: No Advance Directives: Yes Advance Directives on File: Yes Advance Directives Date on File: 12/05/24 service: No Physical Exam Exam: Exam: Nursing notes and vital signs reviewed. Constitutional: Well-appearing, NAD. Alert. Oriented X3. Eyes: Pupils equal, round and reactive to light. EOMI. ENT: Pharynx normal. Neck: Normal inspection. Neck supple. C-spine nontender, normal ROM. CVS: Normal heart rate and rhythm. Pulses normal. Respiratory: No respiratory distress. Breath sounds normal. Abdomen: Soft and nontender. Skin: Skin warm and dry. Normal skin color. No noted bruising. Extremities: No lower extremity edema. Moves all extremities. Neuro: Oriented X 3. No motor deficit. Vital Signs: Vital Signs: Last Vital Signs Temp 98.8 F 02/11/25 18:47 Pulse 85 02/11/25 18:47 Resp 16 02/11/25 18:47 BP 134/52 L 02/11/25 18:47 Pulse Ox 97 02/11/25 18:47 O2 Del Method Room Air 02/11/25 18:13 BMI result Body Mass Index 28.2 Medical Decision Making Medical Decision Making MDM Narrative: Upon my assessment, he does overall appear well. He can not recall the fall to me, he is a poor historian, has a known history of encephalopathy as well as dementia. He comes from a detention, the [facility]. He tells me he lives at home, a when asked if he lives alone says you can call it that. LOC status is unclear, but given he can not recall any of the events, we will obtain CT imaging of the head to rule out intracranial pathology or bleeding given the anticoagulant, as well as CT of the neck despite active range of motion, and no midline tenderness on exam. We will also obtain EKG, lab work, and look for underlying infectious pathology. 1954-- I was notified by the nursing staff with the patient was becoming restless, given his history of dementia is likely experiencing some sundowning behaviors. He takes trazodone 50 mg at the facility, I ordered a dose of this medication here. His workup was overall reassuring, including negative CT imaging of the head, C-spine. Lab work showed no leukocytosis, anemia that appears to be baseline, and is otherwise reassuring. The urinalysis does show large leukocytes, concerning for infection. We will empirically treat him with a g of Rocephin while in the ED, and discharge back to his facility with oral antibiotics. I will call his facility to confirm this. 2004-- I called his facility ([phone]), spoke to nursing staff nurse Barry, informed them the patient will be returning back given his reassuring workup with PO antibiotics. They are agreeable to plan of care at this time. Will transfer the patient back to his facilty. They instructed me to send the antibiotic to [facility] ( ). I sent it electronically to [facility]. Will send patient back via BLS. Differential Diagnosis Differential Diagnoses: The differential diagnosis associated with the presentation includes Syncope, seizure, mechanical fall, underlying infection. Admission/Observation Consideration of admission/observation: Escalation of care including admission/observation considered Lab Data MDM Lab Attestation statement: I reviewed the patient's lab results. (No leukocytosis, anemia as per baseline. Negative viral panel for COVID, flu, RSV. Urine shows signs of infection.) 02/11/25 18:48 02/11/25 18:48 Labs: Lab Results 02/11/25 Range/Units 18:48 WBC 7.3 (4.8-10.8) X10*3/uL RBC 3.83 L (4.60-5.80) X10*6/uL Hgb 11.4 L (14.0-18.0) g/dl Hct 35.9 L (42.0-52.0) % MCV 93.7 (80.0-98.0) fL MCH 29.8 (27.0-33.0) pg MCHC 31.8 (31.0-36.0) g/dl RDW 14.0 (11.0-16.0) % Plt Count 213 (160-400) X10*3/uL MPV 11.9 (9.4-12.4) fL Immature Gran % (Auto) 0.3 (0.0-0.4) % Neut % (Auto) 65.4 (45-73) % Lymph % (Auto) 24.0 (20-40) % [place] % (Auto) 8.0 (2-11) % Eos % (Auto) 1.8 (0-4) % Baso % (Auto) 0.5 (0-2) % Lymph # (Auto) 1.8 (1.2-4.9) X10*3/uL [place] # (Auto) 0.6 (0.1-1.2) X10*3/uL Eos # (Auto) 0.1 (0.0-0.4) X10*3/uL Baso # (Auto) 0.0 (0.0-0.2) X10*3/uL Abs Immat Gran (auto) 0.02 (0.00-0.03) X10*3/uL Absolute Neuts (auto) 4.8 (2.0-8.3) x10*3/uL Absolute Nucleated RBC 0.000 (0.0-0.012) X10*3/uL Nucleated RBC % (auto) 0.0 (0.0-0.2) /100WBC PT 17.1 H (11.2-13.5) SEC INR 1.4 H (0.9-1.1) Sodium 145 (135-145) mmol/L Potassium 4.3 (3.3-5.1) mmol/L Chloride 116 H (96-108) mmol/L Carbon Dioxide 25 (22-29) mmol/L Anion Gap 8 L (12-20) BUN 27 H (9-16) mg/dL Creatinine 1.18 (0.5-1.4) mg/dL Estim Creat Clear Calc 42.2 Estimated GFR 59 Random Glucose 253 H (60-115) mg/dL Calcium 8.8 (8.4-10.2) mg/dL Magnesium 1.9 (1.6-2.6) mg/dL Troponin I High Sens 6.6 D (<3.5-35.0) ng/L Urine Color Yellow Urine Appearance Turbid Urine pH 5.5 (5.0-9.0) Ur Specific [place] 1.020 (1.005-1.025) Urine Protein 100 (2+) H (Neg-Trace) mg/dL Urine Glucose (UA) >=1000 H (Negative) mg/dL Urine Ketones Negative (Negative) mg/dL Urine Blood Moderate (2+) H (Negative) Urine Nitrite Negative (Negative) Ur Leukocyte Esterase Large (3+) H (Negative) Urine RBC 0-2 (0-2) /HPF Urine WBC >50 H (0-5) /HPF Ur Squamous Epith Cells 3-5 (0-2) /HPF Urine Bacteria 1+ (None Seen) Hyaline Casts 3-5 (0-2) /LPF Urine Yeast Present Influenza Type A (PCR) NEGATIVE (Negative) Influenza Type B (PCR) NEGATIVE (Negative) RSV RNA Qual (PCR) NEGATIVE (Negative) SARS-CoV-2 RNA (RT-PCR) NEGATIVE (Negative) Independent Interpretation I performed an independent interpretation of an: EKG Interpretation: Rate: 82 Rhythm: NSR, PVCs Harper: normal Normal P waves. Normal RACHEL. Normal QRS complex. ST T wave : no dep, elev qTC: 443 prior studies: Similar The study has been interpreted contemporaneously by me. Radiology Impression Discussion of test interpretation with radiology: I have reviewed the radiologist's reading. Radiologist Impression: CT Head WO IMPRESSION: 1. No acute intracranial findings. Cervical Spine CT WO IMPRESSION: No acute findings. XR Chest IMPRESSION: 1. No acute findings. Independent Historian Clinical information obtained from an independent historian. History obtained from or confirmed by: EMS External Record Review External record reviewed: Other (residential record.) Chronic Conditions Patient?s care impacted by: Diabetes, Hypertension and Other (Dementia) Social Determinants Patient?s care significantly limited by Social Determinants of Health including: Problems related to primary support group Discharge Plan Discharge Clinical Impression: Unwitnessed fall, Acute UTI Patient Disposition: Xfer LTC Instructions: Urinary Tract Infection in Men (DC) Additional Instructions: The patient was seen in our ED today after an unwitnessed fall. His EKG, lab work was overall reassuring. The CT of his head, neck showed no acute abnormality. He does have a urinary tract infection. I have treated him with a dose of IV antibiotics in the ED, and I have sent a prescription to [facility] in [place] for cefpodoxime (Vantin). If he develops any worsening complaints at any time, please bring him back to the ER for reassessment. Prescriptions: New cefpodoxime 200 mg tablet 200 mg PO Q12H 7 Days Qty: 14 0RF Rx Instructions: must administer with a meal/food No Action trazodone 50 mg Tablet 50 mg PO BEDTIME cyanocobalamin (vitamin B-12) [Vitamin B-12] 500 mcg Tablet 500 mcg PO DAILY cholecalciferol (vitamin D3) [Vitamin D3] 50 mcg (2,000 unit) Capsule 50 mcg PO DAILY gabapentin 100 mg Capsule 100 mg PO BID Eliquis 5 mg Tablet 5 mg PO BID acetaminophen 325 mg Tablet 650 mg PO BID PRN (Reason: Fever Or Pain) lisinopril 5 mg Tablet 5 mg PO BEDTIME Protocol: Hold for SBP< HOLD for SBP < : 110 atorvastatin 80 mg tablet 80 mg PO BEDTIME metoprolol tartrate 25 mg Tablet 25 mg PO BID Qty: 1 0RF Protocol: Hold for SBP/HR < HOLD for SBP < : 90 HOLD for HR < : 60 insulin glargine [Lantus Solostar U-100 Insulin] 100 unit/mL (3 mL) insulin pen 10 unit subcut BEDTIME loperamide 2 mg Tablet 4 mg PO ONCE PRN (Reason: First Loose Stool) loperamide 2 mg Tablet 2 mg PO Q4H MDD 16mg PRN (Reason: Loose Stool) cefuroxime axetil 250 mg tablet 250 mg PO BID 7 Days Qty: 14 0RF (DME) FreeStyle Test Strip See Rx Instructions .ROUTE .MEDSUPPLY Qty: 50 11RF Rx Instructions: As directed (DME) blood-glucose meter [FreeStyle Lite Meter] Kit See Rx Instructions .ROUTE .MEDSUPPLY Qty: 1 0RF Rx Instructions: As directed (DME) lancets [FreeStyle Lancets] 28 gauge misc See Rx Instructions .ROUTE .MEDSUPPLY Qty: 100 11RF Rx Instructions: As directed tamsulosin 0.4 mg capsule 0.8 mg PO DAILY Referrals: Yissel Story MD [Primary Care Provider, Medical] Print Language: Jamaican
[2025-02-11 18:47] VITALS: BP 134/52; PULSE 85; RESP 16; TEMP 37.1; O2SAT 97
[2025-02-11 18:54] LABS: MANUAL DIFF FLAG NO
[2025-02-11 19:03] LABS: Appearance Urine Turbid; Glucose Urine UA >=1000 mg/dL (Negative); PH 5.5 (5.0-9.0); Specific Gravity - Urine 1.020 (1.005-1.025); UMIC TRIGGER UA YES
[2025-02-11 19:05] LABS: Hematocrit 35.9 % (42.0-52.0); Hemoglobin 11.4 g/dl (14.0-18.0); Imm Gran Abs Auto 0.02 X10*3/uL (0.00-0.03); Imm Gran Pct Auto 0.3 % (0.0-0.4); Lymphocytes Absolute Auto 1.8 X10*3/uL (1.2-4.9); Mean Corpuscular HGB Conc 31.8 g/dl (31.0-36.0); Mean Corpuscular Hemoglobin 29.8 pg (27.0-33.0); Mean Corpuscular Volume 93.7 fL (80.0-98.0); NRBC Abs Auto 0.000 X10*3/uL (0.0-0.012); NRBC Pct Auto 0.0 /100WBC (0.0-0.2); Platelet Count 213 X10*3/uL (160-400); Red Blood Count 3.83 X10*6/uL (4.60-5.80); White Blood Count 7.3 X10*3/uL (4.8-10.8)
[2025-02-11 19:10] LABS: Anion Gap 8 (12-20); Blood Urea Nitrogen 27 mg/dL (9-16); Calcium 8.8 mg/dL (8.4-10.2); Carbon Dioxide 25 mmol/L (22-29); Chloride 116 mmol/L (96-108); Creatinine Clr Calc Pharmacy 42.2; Estimated Glomerular Filt Rate 59; Magnesium 1.9 mg/dL (1.6-2.6); Potassium 4.3 mmol/L (3.3-5.1); Sodium 145 mmol/L (135-145)
[2025-02-11 19:18] LABS: Troponin-I High Sensitivity 6.6 ng/L (<3.5-35.0)
--- OUTSIDE RECORDS SUMMARY | 2025-02-11 19:20 | XMS_ITS ---
Author Organization [facility] Care Team Providers Care Trade Economist Name Role Phone Yissel Story Unavailable Unavailable Allergies and adverse reactions Code CodeSystem Substance Reaction Severity StartDate Concern Status 7984 RXNORM Penicillin V Unknown 02/06/2025 active Care Team Name Role Address Phone Organization Dates Raviayaka Meredith Jez PCP [address], [facility], [place] (Office): : [facility] 02/06/2025 - present Encounters Encounter Type Code Code System Description Performer Discharge Disposition Service Delivery Location Date Ambulatory Encounter CPT Code = [id number] Metabolic encephalopathy [facility] Address: [address], [place], , [facility]. 02/06 Ambulatory Encounter CPT Code = [id number] Urinary tract infectious disease [facility] Address: [address] [place] [address], [facility]. 02/06 Ambulatory Encounter CPT Code = [address] Fall [facility] Address: [address] [place], [phone], [facility]. 02/06 Ambulatory Encounter CPT Code = [id number] Hyperlipidemia [facility] Address: [address] [place] [address], [phone], [facility]. 02/06 Ambulatory Encounter CPT Code = [id number] Peripheral vascular disease [facility] Address: [address] [place] [address], [phone], [facility]. 02/06 Ambulatory Encounter CPT Code = [id number] Essential hypertension [facility] Address: [address] [place] [address], [phone], [facility]. 02/06 Ambulatory Encounter CPT Code = [id number] Type 2 diabetes mellitus without complication [facility] Address: [address] [place] [address], [phone], [facility]. 02/06 Ambulatory Encounter CPT Code = [id number] Cerebrovascular disease [facility] Address: [address] [place] [address], [phone], [facility]. 02/06 Ambulatory Encounter CPT Code = [id number] Thoracic aortic aneurysm without rupture [facility] Address: [address] [place] [address], [phone], [facility]. 02/06 Ambulatory Encounter CPT Code = [address] Acidosis [facility] Address: [address] [place] [address], [phone], [facility]. 02/06 Ambulatory Encounter CPT Code = 32313 I48.20 ICD 10 CHRONIC ATRIAL FIBRILLATION, UNSPECIFIED [facility] Address: [address] [place] [address], [phone], [facility]. 02/06 Ambulatory Encounter CPT Code = [id number] Gastroesophageal reflux disease without esophagitis [facility] Address: [address] [place] [address], [address] [place] [address]. 02/06 Ambulatory Encounter CPT Code = [id number] Depressive disorder [facility] Address: [address] [place] [address], [address] [place] [address]. 02/06 Ambulatory Encounter CPT Code = [id number] Paroxysmal atrial fibrillation [facility] Address: [address] [place] [address], [address] [place] [address]. 02/06 Ambulatory Encounter CPT Code = [id number] Benign prostatic hyperplasia with outflow obstruction [facility] Address: [address] [place] [address]. 02/06 Ambulatory Encounter CPT Code = [id number] Dementia [facility] Address: [address] [place] [address], [address] [place] [address]. 02/06 Ambulatory Encounter CPT Code = [id number] Muscle weakness [facility] Address: [address] [place] [address], [address] [place] [address]. 02/06 Ambulatory Encounter CPT Code = [id number] Difficulty walking [facility] Address: [address] [place] [address]. 02/06 Goals Section Goals Description Status Target Date [place] my code status wishes through next review Active 02/18/2025 I will be compliant with the medication regimen & therapies prescribed by my doctor. I will be free of any discomfort or adverse side effects to therapies through the review date. Active 02/18/2025 I will be compliant with the medication regimen & therapies prescribed by my doctor. I will be free of any discomfort or adverse side effects to therapies through the review date. Active 02/18/2025 I will be compliant with the non medication therapies, medication regimen & therapies prescribed by my doctor. I will be free of any discomfort or adverse side effects to therapies through the review date. Active 02/18/2025 I will be compliant with the non medication therapies, medication regimen & therapies prescribed by my doctor. I will be free of any discomfort or adverse side effects to therapies through the review date. Active 02/18/2025 I will be compliant with the non medication therapies, medication regimen & therapies prescribed by my doctor. I will be free of any discomfort or adverse side effects to therapies through the review date. Active 02/18/2025 I will be compliant with the non medication therapies, medication regimen & therapies prescribed by my doctor. I will not have an interruption in normal activities due to pain through the review date. I will be free of any discomfort or adverse side effects to therapies through the review date. Active 02/18/2025 I will be compliant with the non medication therapies, medication regimen & therapies prescribed by my doctor. I will not have an interruption in normal activities due to pain through the review date. I will be free of any discomfort or adverse side effects to therapies through the review date. Active 02/18/2025 I will be compliant with the non medication therapies, medication regimen & therapies prescribed by my doctor. I will not have an interruption in normal activities due to pain through the review date. I will be free of any discomfort or adverse side effects to therapies through the review date. Active 02/18/2025 I will be compliant with the non medication therapies, medication regimen & therapies prescribed by my doctor. I will not have an interruption in normal activities due to pain through the review date. I will be free of any discomfort or adverse side effects to therapies through the review date. Active 02/18/2025 I will be compliant with the non medication therapies, medication regimen & therapies prescribed by my doctor. I will not have an interruption in normal activities due to pain through the review date. I will be free of any discomfort or adverse side effects to therapies through the review date. Active 02/18/2025 I will be compliant with the non medication therapies, medication regimen & therapies prescribed by my doctor. I will not have an interruption in normal activities due to pain through the review date. I will be free of any discomfort or adverse side effects to therapies through the review date. Active 02/18/2025 I will be compliant with rommel tripathi skin assessments though review date. Active 02/18/2025 I will be free of falls through the review date. Active 02/18/2025 I will be free of major decl ine in ADL status through the review date. Active 02/18/2025 I will have no adverse effec ts related to hypertension medications through next review period. Active 02/18/2025 I will have no adverse healt h outcomes related to noncompliance/ or my choice to not follow directions of the medical team,yelling out,wandering. Active 02/18/2025 I will have no side effects related to diabetes medication through next review period. Active 02/18/2025 I will verbalize adequate re lief of pain or ability to cope with incompletely relieved pain through the review date. Active Functional Status Code Name Recorded Time Value Entered By 1 step (fern) 02/11/2025 Not assessed mampofo 12 steps 02/11/2025 Independent mampofo 4 steps 02/11/2025 Independent mampofo Chair/bzc-[id number] transfer 02/11/2025 Partial/moder ate assistance mampofo Does the resident use a wheelchair and/or scooter? 02/11/2025 Not assessed mampofo Eating 02/10/2025 Setup or clean-up assistance [email or web address] Lower body dressing 02/11/2025 Dependent mampofo Lying to sitting on side of bed 02/11/2025 Not asses sed mampofo Oral hygiene 02/11/2025 Not assessed mampofo Personal hygiene 02/11/2025 Not assessed mampofo Picking up object 02/11/2025 Not assessed mampofo Putting on/taking off footwear 02/11/2025 Dependent mampofo Roll left and right 02/11/2025 Not assessed mampofo Shower/bathe self 02/11/2025 Not assessed mampofo Sit to lying 02/11/2025 Not assessed mampofo Sit to stand 02/11/2025 Partial/moderate assistance mampofo Toilet transfer 02/11/2025 Partial/moderate assistan ce mampofo Toileting hygiene 02/11/2025 Dependent mampofo Upper body dressing 02/11/2025 Partial/moderate assi stance mampofo Walk 10 feet 02/11/2025 Not assessed mampofo Walk 150 feet 02/11/2025 Independent mampofo Walk 50 feet 02/11/2025 Independent mampofo Walking 10 feet on uneven surfaces 02/11/2025 Independent mampofo Wheel 150 feet 02/11/2025 Independent mampofo Wheel 50 feet with two turns 02/11/2025 Independent mampofo Medications Section Medication Name Status Code CodeSystem Dose Route Frequency Admin Type Sig Text Start Date End Date Indication TraZODone HCl Tablet 50 MG aborted 39030 7 RXNORM 1 table t Oral one time a day Routin e Give 1 table t by mouth one time a day for insom bryson AND Give 1 table t by mouth every 24 hours as neede d for Restl essne ss 02/11 insomnia 04664 7 RXNORM 1 table t Oral as needed PRN Give 1 table t by mouth one time a day for insom bryson AND Give 1 table t by mouth every 24 hours as neede d for Restl essne ss 02/11 Restlessnes s TraZODone HCl Tablet 50 MG active 10436 7 RXNORM 1 table t Oral one time a day Routin e Give 1 table t by mouth one time a day for depre ssion AND Give 1 table t by mouth every 24 hours as neede d for Restl essne ss/de press ion until 02/24 23:59 2024 - depression 12216 7 RXNORM 1 table t Oral as needed PRN Give 1 table t by mouth one time a day for depre ssion AND Give 1 table t by mouth every 24 hours as neede d for Restl essne ss/de press ion until 02/24 23:59 02/25 Restlessnes s/depressio n Cyanocobala min Oral Tablet 500 MCG aborted 76952 6 RXNORM 1 table t Oral one time a day Routin e Give 1 table t by mouth one time a day for suppl ement 02/08 supplement Lisinopril Tablet 5 MG active 31226 4 RXNORM 1 table t Oral one time a day Routin e Give 1 table t by mouth one time a day for hyper tensi on Hold for Systo lic Blood press ure less than 110 2024 - hypertensio n Metoprolol Tartrate Tablet 25 MG active 21020 4 RXNORM 1 table t Oral two times a day Routin e Give 1 table t by mouth two times a day for blood press ure manag ement Hold if Pulse < 60 and hold for systo lic blood press ure less than 90 2024 - blood pressure management TraZODone HCl Tablet 50 MG aborted 99474 7 RXNORM 1 table t Oral one time a day Routin e Give 1 table t by mouth one time a day for insom bryson AND Give 1 table t by mouth every 24 hours as neede d for Restl essne ss until 02/24 23:59 02/11 insomnia 32429 7 RXNORM 1 table t Oral as needed PRN Give 1 table t by mouth one time a day for insom bryson AND Give 1 table t by mouth every 24 hours as neede d for Restl essne ss until 02/24 23:59 02/11 Restlessnes s Tamsulosin HCl Capsule aborted 0.8 mg Oral one time a day Routin e Give 0.8 mg by mouth one time a day for benig n prost atic hyper plasi a 02/08 benign prostatic hyperplasia Gabapentin Capsule 100 MG active 61120 0 RXNORM 1 capsu le Oral two times a day Routin e Give 1 capsu le by mouth two times a day for neuro pathi c pain 2024 - neuropathic pain Eliquis Oral Tablet 5 MG aborted 89401 47 RXNORM 1 table t Oral two times a day Routin e Give 1 table t by mouth two times a day for blood clot preve ntion 02/08 blood clot prevention Gabapentin Capsule 100 MG aborted 64577 0 RXNORM 1 capsu le Oral two times a day Routin e Give 1 capsu le by mouth two times a day for neuro pathi c pain 02/08 neuropathic pain Cholecalcif john Oral Capsule 50 MCG (1999) aborted 37798 6 RXNORM 1 capsu le Oral one time a day Routin e Give 1 capsu le by mouth one time a day for suppl ement 02/08 supplement Cholecalcif john Oral Capsule 50 MCG (1999) active 39199 6 RXNORM 1 capsu le Oral one time a day Routin e Give 1 capsu le by mouth one time a day for suppl ement 2024 - supplement Acetaminoph en Tablet 325 MG active 32925 2 RXNORM 2 table t Oral as needed PRN Give 2 table t by mouth every 12 hours as neede d for Pain / Fever Max APAP 3 Grams / 24 hour 2024 - Pain / Fever Cefuroxime Axetil Oral Tablet 250 MG active 55055 7 RXNORM 1 table t Oral two times a day Routin e Give 1 table t by mouth two times a day for Infec tion until 02/14 05:59 02/14 Infection Bisacodyl Suppository 10 MG active 92428 9 RXNORM 1 suppo sitor y Rectal as needed PRN Inser t 1 suppo sitor y recta lly as neede d for const ipati on Admin ister on 01-18 shift if no resul t from Milk of Magne socorro and no BM x 3 days. 2024 - constipatio n Atorvastati n Calcium Tablet 80 MG aborted 47895 5 RXNORM 1 table t Oral one time a day Routin e Give 1 table t by mouth one time a day for Deysi stero l manag ement 02/08 Cholesterol management Metoprolol Tartrate Tablet 25 MG aborted 56577 4 RXNORM 1 table t Oral two times a day Routin e Give 1 table t by mouth two times a day for blood press ure manag ement Hold if Pulse < 60 and hold for systo lic blood press ure less than 90 02/08 blood pressure management Tuberculin PPD Solution complet ed 0.1 ml Intrad ermal one time only One Time Only Injec t 0.1 ml intra derma lly one time only for preve ntati ve until 02/07 23:59 TB Test #1 --Adm inist er 0.1 ml Intra derma lly-- Read TB test withi n 48 hours . 02/08 preventativ e TraZODone HCl Tablet 50 MG aborted 79894 7 RXNORM 1 table t Oral one time a day Routin e Give 1 table t by mouth one time a day for insom bryson 02/09 insomnia Insulin Glargine Solution 100 UNIT/ML active 66602 1 RXNORM 10 unit Subcut aneous one time a day Routin e Injec t 10 unit subcu taneo usly one time a day for diabe arabella 2024 - diabetes Enema Rectal Enema active 1 appli catio n Rectal as needed PRN Inser t 1 appli catio n recta lly as neede d for const ipati on Inser t 1 appli catio n recta lly as neede d for const ipati on. Give the saurabhni ng after no resul ts from Milk of Magne socorro and Bisac odyl suppo sitor y. 2024 - constipatio n Cyanocobala min Oral Tablet 500 MCG active 66784 6 RXNORM 1 table t Oral one time a day Routin e Give 1 table t by mouth one time a day for suppl ement 2024 - supplement Atorvastati n Calcium Tablet 80 MG active 56350 5 RXNORM 1 table t Oral one time a day Routin e Give 1 table t by mouth one time a day for Deysi stero l manag ement 2024 - Cholesterol management Lisinopril Tablet 5 MG aborted 79916 4 RXNORM 1 table t Oral one time a day Routin e Give 1 table t by mouth one time a day for hyper tensi on Hold for Systo lic Blood press ure less than 110 02/08 hypertensio n Loperamide HCl Capsule 2 MG active 05335 6 RXNORM 2 capsu le Oral as needed PRN Give 2 capsu le by mouth every 24 hours as neede d for Loose stool s first loose stool AND Give 1 capsu le by mouth every 4 hours as neede d for const ipati on for subse quent episo edwin of diarr hea after initi al dose. Max daily dose of 16mg. 2024 - Loose stools 61009 6 RXNORM 1 capsu le Oral as needed PRN Give 2 capsu le by mouth every 24 hours as neede d for Loose stool s first loose stool AND Give 1 capsu le by mouth every 4 hours as neede d for const ipati on for subse quent episo edwin of diarr hea after initi al dose. Max daily dose of 16mg. 2024 - constipatio n Tamsulosin HCl Capsule active 0.8 mg Oral one time a day Routin e Give 0.8 mg by mouth one time a day for benig n prost atic hyper plasi a 2024 - benign prostatic hyperplasia Tuberculin PPD Solution active 0.1 ml Intrad ermal one time only One Time Only Injec t 0.1 ml intra derma lly one time only for preve ntati ve until 02/14 23:59 TB Test #2 --Adm inist er 0.1 ml Intra derma lly-- Read TB test withi n 48 hours . 02/15 preventativ e Cefuroxime Axetil Oral Tablet 250 MG aborted 69581 7 RXNORM 1 table t Oral two times a day Routin e Give 1 table t by mouth two times a day for Infec tion for 7 Days 02/08 Infection Eliquis Oral Tablet 5 MG aborted 84967 47 RXNORM 1 table t Oral two times a day Routin e Give 1 table t by mouth two times a day for blood clot preve ntion 02/11 blood clot prevention Insulin Glargine Solution 100 UNIT/ML aborted 56009 1 RXNORM 10 unit Subcut aneous one time a day Routin e Injec t 10 unit subcu taneo usly one time a day for diabe arabella 02/07 diabetes Eliquis Oral Tablet 5 MG active 93489 47 RXNORM 1 table t Oral two times a day Routin e Give 1 table t by mouth two times a day for AFIB 2024 - AFIB Mental Status Section Date Assessment Total Score Description 02/08/2025 BIMS 04 severe cognitiv e impairment CAM 0 No delirium ind icated PHQ-9 00 02/08/2025 BIMS 04 severe cognitiv e impairment CAM 0 No delirium ind icated PHQ-9 00 Insurance Providers Coverage Status Coverage Type Relationship to Subscriber Member Identifier Subscriber Identifier Group Identifier Payer Identifier and Other information 2025 Code: 51 Code System OID:[id number]. 5 Code System Name: Source of Payment Typology (PHDSC) Display: Managed Care (Private) Translation: Code: HM Code System: OID:[id number] .[id number]. 1336 Code System Name: Insurance Type Code ([id number]) Display Name: Health Maintenance Organization (HMO) Plan Code: SELF Code System Name: HL7 RoleCode Code System OID:[id number] Display Name: Self [id number]: [id number] Payer Name: [facility] Address: [facility] [address] City: [place] State: [place] Country: [facility] Telecom: Code: 2 Code System OID:[id number] .[id number]. 5 Code System Name: Source of Payment Typology (PHDSC) Display: Medicaid Translation: Code: 48 Code System: OID:[id number] .[id number]. 1336 Code System Name: Insurance Type Code ([id number]) Display Name: Medicaid Code: 81 Code System OID:[id number] .[id number]. 5 Code System Name: Source of Payment Typology (PHDSC) Display: Self Pay Translation: Code: 09 Code System: OID:[id number] .[id number]. 1336 Code System Name: Insurance Type Code ([id number]) Display Name: Self-pay Plan of Treatment Section Interventions Intervention Code Code System Display Name Proposed D ate Problems Problem # Description Date of onset Resolved Date Code CodeSystem Concern Status 1 ACIDOSIS, UNSPECIFIED 02/06/[address] active 2 BENIGN PROSTATIC HYPERPLASIA WITH LOWER URINARY TRACT SYMPTOMS 02/06/[address] active 3 DEPRESSION, UNSPECIFIED 02/06/[address] active 4 DIFFICULTY IN WALKING, NOT ELSEWHERE CLASSIFIED 02/06/[address] active 5 ESSENTIAL (PRIMARY) HYPERTENSION 02/06/[address] active 6 GASTRO-ESOPHAGEAL REFLUX DISEASE WITHOUT ESOPHAGITIS 02/06/[address] active 7 HYPERLIPIDEMIA, UNSPECIFIED 02/06/[address] active 8 METABOLIC ENCEPHALOPATHY 02/06/[address] active 9 MUSCLE WEAKNESS (GENERALIZED) 02/06/[address] active 10 PAROXYSMAL ATRIAL FIBRILLATION 02/06/[address] active 11 PERIPHERAL VASCULAR DISEASE, UNSPECIFIED 02/06/[address] active 12 PERSONAL HISTORY OF TRANSIENT ISCHEMIC ATTACK (TIA), AND CEREBRAL INFARCTION WITHOUT RESIDUAL DEFICITS 02/06/[address] active 13 THORACIC AORTIC ANEURYSM, WITHOUT RUPTURE, UNSPECIFIED 02/06/[address] active 14 TYPE 2 DIABETES MELLITUS WITHOUT COMPLICATIONS 02/06/[address] active 15 UNSPECIFIED DEMENTIA, UNSPECIFIED SEVERITY, WITHOUT BEHAVIORAL DISTURBANCE, PSYCHOTIC DISTURBANCE, MOOD DISTURBANCE, AND ANXIETY 02/06/[address] active 16 UNSPECIFIED FALL, SUBSEQUENT ENCOUNTER 02/06/[address] active 17 URINARY TRACT INFECTION, SITE NOT SPECIFIED 02/06/[address] active Reason for Referral No Reasons for Referral Entered Social History Social History Observation Description Start Date End Date Code Code System Current Smoking Status Tobacco smoking consumption unknown 902313797 SNOMED CT Sex Assigned At Male 1940 [address]-4 [facility] Gender Identity Sexual Orientation Vital Signs Code Code System Vitals Name Values and Units Timing Information 9279-1 LOINC Respiratory Rate Value=18.0 Units=/m in 02/11/2025 8462-4 LOINC Blood Pressure-Diastolic Value=68 Un its=mmHg 02/11/2025 8480-6 LOINC Blood Pressure-Systolic Eweqt=720 Un its=mmHg 02/11/2025 8310-5 LOINC Body Temperature Value=98.1 Units= F 02/11/2025 8867-4 LOINC Heart rate Value=82.0 Units=/min 03/2024 15489-2 [facility] O2 % BldC Oximetry Value=95.0 Units= % 02/11/2025 03549-9 [facility] Pain Level Value=0.0 02/11/2025 2339-0 [facility] Blood Sugar Yzuiz=872.0 Units=mg/dL 02/10/2025 8302-2 LOINC Height Value=70.0 Units=Inches 02/07/2025 12197-5 [facility] Weight Anwak=113.2 Units=Lbs
--- OUTSIDE RECORDS SUMMARY | 2025-02-11 19:20 | XMS_ITS ---
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 Name Role Phone Billy Zheng Unavailable Unavailable Citlaly Kaye Unavailable Unavailable Yissel Story Unavailable Unavailable Ember Kaye Unavailable Unavailable Allergies and adverse reactions Code CodeSystem Substance Reaction Severity StartDate Concern Status 278848693 SNOMED CT Penicillins Unknown 04/16/2023 activ e Care Team Name Role Address Phone Organization Dates Yissel Story PCP [address] [facility] [address], [place], [address], [place] (Office): : [facility] 04/16/2023 - 04/25/2023 Billy Zheng [address], [place], [address], [place] (Office): : : [facility] 04/16/2023 - 04/25/2023 Citally Kaey [address] [place] [address], [address], [place] (Office): : [facility] 04/16/2023 - 04/25/2023 Ember Kaye [address] [facility] [address], [place], [address], [place] (Office): : [facility] 04/16/2023 - 04/25/2023 Immunizations Immunization Status Vaccine Details Vaccine Code CodeSystem Bhaskar e Notes TB 1 Step Mantoux (PPD) completed tuberculin skin test; unspecified formulation lotNumber: [id number] expiry: 07/11/2026 Mfg: mantoux Given 0.1 ml Left Forearm intradermally 98 CVX created date: 04/17/2023 consent date: 04/17/2023 administere d date: 04/17/2023 Mental Status Section Date Assessment Total Score Description 04/25/2023 BIMS 14 cognitively int act CAM 0 No delirium ind icated PHQ-9 02 minimal depress ion 04/17/2023 BIMS 14 cognitively int act CAM 0 No delirium ind icated PHQ-9 02 minimal depress ion Insurance Providers Coverage Status Coverage Type Relationship to Subscriber Member Identifier Subscriber Identifier Group Identifier Payer Identifier and Other information 2023 Code: 51 Code System OID:2.16.840.1 .244585.3.221. 5 Code System Name: Source of Payment Typology (PHDSC) Display: Managed Care (Private) Translation: Code: HM Code System: OID:2.16.840.1 .633178.6.255. 1336 Code System Name: Insurance Type Code ([id number]) Display Name: Health Maintenance Organization (HMO) Plan Code: SELF Code System Name: HL7 RoleCode Code System OID:2.16.840.1 .873806.5.111 Display Name: Self [id number]: [id number] Payer Name: [employer] Address: [facility] [address] City: [place] State: [place] Country: [place] Telecom: Code: 2 Code System OID:2.16.840.1 .852086.3.221. 5 Code System Name: Source of Payment Typology (PHDSC) Display: Medicaid Translation: Code: 48 Code System: OID:2.16.840.1 .445733.6.255. 1336 Code System Name: Insurance Type Code ([id number]) Display Name: Medicaid Code: 81 Code System OID:2.16.840.1 .643291.3.221. 5 Code System Name: Source of Payment Typology (PHDSC) Display: Self Pay Translation: Code: 09 Code System: OID:2.16.840.1 .290963.6.255. 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 [address] active 6 ESSENTIAL (PRIMARY) HYPERTENSION [address] active 7 GASTRO-ESOPHAGEAL REFLUX DISEASE WITHOUT ESOPHAGITIS [address] active 8 INFLUENZA DUE TO OTHER IDENTIFIED INFLUENZA VIRUS WITH OTHER RESPIRATORY MANIFESTATIONS [address] active 9 MUSCLE WEAKNESS (GENERALIZED) [address] active 10 NEED FOR ASSISTANCE WITH PERSONAL CARE [address] active 11 OTHER ABNORMALITIES OF GAIT AND MOBILITY [address] active 12 OTHER SPECIFIED DISORDERS OF BLADDER [address] active 13 OTHER TOXIC ENCEPHALOPATHY [address] active 14 PERIPHERAL VASCULAR DISEASE, UNSPECIFIED [address] active 15 TYPE 2 DIABETES MELLITUS WITHOUT COMPLICATIONS [address] active 16 UNSPECIFIED DEMENTIA, UNSPECIFIED SEVERITY, WITHOUT BEHAVIORAL DISTURBANCE, PSYCHOTIC DISTURBANCE, MOOD DISTURBANCE, AND ANXIETY [address] active 17 UNSTEADINESS ON FEET [address] active 18 URINARY TRACT INFECTION, SITE NOT SPECIFIED [address] active Reason for Referral No Reasons for Referral Entered Social History Social History Observation Description Start Date End Date Code Code System Current Smoking Status Tobacco smoking consumption unknown 835645165 SNOMED CT Sex Assigned At Male 1940 50352-6 [facility] Gender Identity Sexual Orientation Vital Signs Code Code System Vitals Name Values and Units Timing Information 57765-5 [facility] Pain Level Value=0.0 04/25/2023 9279-1 [facility] Respiratory Rate Value=20.0 Units=/m in 04/24/2023 8462-4 [facility] Blood Pressure-Diastolic Value=83 Un its=mmHg 04/24/2023 8480-6 [facility] Blood Pressure-Systolic Qppwi=397 Un its=mmHg 04/24/2023 8310-5 [facility] Body Temperature Value=97.1 Units= F 04/24/2023 8867-4 [facility] Heart rate Value=59.0 Units=/min 01/2024 70063-3 [facility] O2 % BldC Oximetry Value=94.0 Units= % 04/24/2023 8302-2 [facility] Height Value=71.0 Units=Inches 04/17/2023 96687-9 [facility] Weight Ncqjz=412.2 Units=Lbs 05/2023
[2025-02-11 19:31] LABS: INTERNATIONAL NORM RATIO 1.4 (0.9-1.1); Prothrombin Time 17.1 SEC (11.2-13.5)
[2025-02-11 19:49] LABS: Resp Syncy Virus RNA Qual PCR NEGATIVE (Negative); SARS COV2 PCR INHOUSE NEGATIVE (Negative)
[2025-02-11 21:24] VITALS: BP 134/52; PULSE 85; RESP 16; TEMP 37.1; O2SAT 97
== END 2025-02-11 21:25 ==
PROVIDERS: Nurse Practitioner; Emergency Provider Emergency Medicine Emergency Medical Services; PCP Hospitalist
DX: N39.0 Urinary tract infection, site not specified (principal); I10 Essential (primary) hypertension; I48.0 Paroxysmal atrial fibrillation; F03.90 Unspecified dementia, unspecified severity, without behavioral disturbance, psychotic disturbance, mood disturbance, and anxiety; E11.9 Type 2 diabetes mellitus without complications; Z91.81 History of falling; Z79.01 Long term (current) use of anticoagulants; Z79.899 Other long term (current) drug therapy; Z88.0 Allergy status to penicillin; Z03.818 Encounter for observation for suspected exposure to other biological agents ruled out
CPT/HCPCS: 36415; 70450; 71045; 72125; 80048; 81001; 81003; 83735; 84484; 85025; 85610; 87637; 93005; 96365; 99284; J0696

== ENCOUNTER → 2025-02-11 18:08 | Outpatient (BNV) | payer OTHER, SELFPAY | PROVIDERS: Emergency Provider Emergency Medicine Emergency Medical Services; PCP Hospitalist; Visit Provider Internal Medicine | DX: I49.3 Ventricular premature depolarization (principal); I21.09 ST elevation (STEMI) myocardial infarction involving other coronary artery of anterior wall | CPT/HCPCS: 93010 ==

== ENCOUNTER → 2025-02-11 18:08 | Outpatient (BNV) | payer OTHER, SELFPAY | PROVIDERS: Emergency Provider Emergency Medicine Emergency Medical Services; PCP Hospitalist; Visit Provider Radiology Diagnostic Radiology | DX: Z04.3 Encounter for examination and observation following other accident (principal); R05.9 Cough, unspecified | CPT/HCPCS: 70450; 71045; 72125 ==